=== PATIENT | female | born 2000 | race Caucasian/White ===

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

== ENCOUNTER 2022-06-21 19:11 | Emergency (ER) | payer MEDICAID ==
[2022-06-21 19:49] LABS: MUDS CUTOFF CONCENTRATIONS CUTOFF CONC BELOW:
[2022-06-21 19:54] LABS: BILIRUBIN,URINE NEGATIVE (NEGATIVE); GLUCOSE, URINE (UA) NEGATIVE (NEGATIVE); KETONES,URINE (UA) NEGATIVE (NEGATIVE); LEUKOCYTE ESTERASE, URINE TRACE (NEGATIVE); NITRITE,URINE POSITIVE (NEGATIVE); OCCULT BLOOD,URINE NEGATIVE (NEGATIVE); PROTEIN,URINE TRACE mg/dL (NEGATIVE); UROBILINOGEN,URINE 0.2 (NORMAL) E.U./dL (NORMAL)
[2022-06-21 19:56] LABS: CLARITY,URINE HAZY (CLEAR)
[2022-06-21 19:57] LABS: HCG UR QUAL NEGATIVE
[2022-06-21 20:05] LABS: AMORPHOUS SEDIMENT,UR Few /LPF; BACTERIA,URINE Moderate /HPF (None Seen); RBC,URINE 0-5 /HPF (0-5); SQUAMOUS EPITHELIAL CELL,UR FEW Squamous (<= Few); WBC,URINE >25 /HPF (0-5)
--- NOTE | 2022-06-21 20:06 | ED Physician Documentation ---
History of Present Illness - Stated complaint Stated Complaint: BODY SHAKES,SYNCOPE - Chief complaint Chief Complaint: General - Additonal information Additional information: 22-year-old female was brought to the emergency department by her mom for evaluation of worsening body shakes and tremor. Patient has been having intermittent tremors of both her upper extremities for about the last 3 months though it is gotten acutely worse over the last 24 to 48 hours. Patient is aware of these tremors. Today while being driven into the hospital mom reported that the patient fainted in the car. Patient denies any drug use with the exception of occasional cannabis. No alcohol use. She does not have any loss of bowel or bladder function. No focal deficits. Mom reports that she herself has a seizure disorder as well as the patient's older siblings. There have been no recent fevers. She takes no medicines prescribed by . There is a family history of diabetes though patient's blood sugar today is 102. On presentation the patient is alert though she does seem to have a tremor which she cannot control of both her upper extremities. Mom and patient report that she is very stubborn and has refused to follow-up with primary care doctors in the past though at this point the patient is bothered by the tremors enough that she will follow closely with a PCP Review of Systems Constitutional: denies: Fever, Chills Respiratory: reports: Reviewed and negative GI: reports: Reviewed and negative : reports: Reviewed and negative Skin: reports: Reviewed and negative Musculoskeletal: reports: Reviewed and negative Neurologic: reports: Other (Bilateral upper extremity tremor) PD PAST MEDICAL HISTORY - Past Medical History Cardiovascular: None Respiratory: Asthma Neuro: None Endocrine/Autoimmune: None GI: None 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 : None HEENT: Other Psych: Panic attacks Musculoskeletal: None Derm: Eczema - Past Surgical History Past Surgical History: No - Present Medications Home Medications: Ambulatory Orders Medication Instructions Recorded Confirmed Albuterol Sulf [Ventolin Hfa 1 - 2 puffs INH Q4HR PRN 12/03/20 02/28/21 Inhaler] Cefdinir 300 mg PO BID #14 cap 06/21/22 Ondansetron Odt [Zofran] 4 mg TL Q6H PRN #10 tablet 06/21/22 - Allergies Allergies/Adverse Reactions: Allergies Allergy/AdvReac Type Severity Reaction Status Date / Time No Known Drug Allergies Allergy Verified 06/21/22 19:28 - Social History Does the pt smoke?: No Smoking Status: Never smoker Does the pt drink ETOH?: No Does the pt have substance abuse?: No - Immunizations Immunizations are current?: Yes - POLST Patient has POLST: No PD ED PE NORMAL - General General: Alert and oriented X 3, No acute distress, Well developed/nourished - HEENT HEENT: Atraumatic, Ears normal, Moist mucous membranes - Neck Neck: Supple, no meningeal sign - Cardiac Cardiac: RRR, No murmur - Respiratory Respiratory: No respiratory distress, Clear bilaterally - Abdomen Abdomen: Normal bowel sounds, Soft - Derm Derm: Normal color, Warm and dry - Extremities Extremities: No deformity, No tenderness to palpate, Normal ROM s pain, Other (Persistent myoclonic jerking of bilateral upper extremities at rest) - Neuro Neuro: Alert and oriented X 3, hand tile maker 2-12 intact Eye Opening: Spontaneous Motor: Obeys Commands Verbal: Oriented GCS Score: 15 Results - Vitals Vitals: Vital Signs - 24 hr 06/21/22 19:22 Temperature 36.8 C Heart Rate 90 Respiratory 18 Rate Blood Pressure 127/100 H O2 Saturation 99 Oxygen O2 Source Room air - Labs Labs: Laboratory Tests 06/21/22 06/21/22 06/21/22 19:41 19:41 20:02 WBC 10.6 RBC 4.71 Hgb 12.9 Hct 39.3 MCV 83.4 MCH 27.4 MCHC 32.8 RDW 12.4 Plt Count 359 MPV 9.3 Neut # (Auto) 7.3 H Lymph # (Auto) 2.6 [place] # (Auto) 0.5 Eos # (Auto) 0.1 Baso # (Auto) 0.1 Absolute Nucleated RBC 0.00 Nucleated RBC % 0.0 Sodium Potassium Chloride Carbon Dioxide Anion Gap BUN Creatinine Estimated GFR (MDRD) Glucose Calcium Total Bilirubin AST ALT Alkaline Phosphatase Total Protein Albumin Globulin Albumin/Globulin Ratio Lipase TSH Urine Color YELLOW Urine Clarity HAZY Urine pH 7.0 Ur Specific [place] 1.015 Urine Protein TRACE Urine Glucose (UA) NEGATIVE Urine Ketones NEGATIVE Urine Occult Blood NEGATIVE Urine Nitrite POSITIVE H Urine Bilirubin NEGATIVE Urine Urobilinogen 0.2 (NORMAL) Ur Leukocyte Esterase TRACE H Urine RBC 0-5 Urine WBC >25 H Ur Squamous Epith Cells FEW Squamous Amorphous Sediment Few Urine Bacteria Moderate H Ur Microscopic Review INDICATED Urine Culture Comments INDICATED Urine HCG, Qual NEGATIVE Urine Opiates Screen NEGATIVE Ur Oxycodone Screen NEGATIVE Urine Methadone Screen NEGATIVE Ur Propoxyphene Screen NEGATIVE Ur Barbiturates Screen NEGATIVE Ur Tricyclics Screen NEGATIVE Ur Phencyclidine Scrn NEGATIVE Ur Amphetamine Screen NEGATIVE U Methamphetamines Scrn NEGATIVE U Benzodiazepines Scrn NEGATIVE Urine Cocaine Screen NEGATIVE U Cannabinoids Screen POSITIVE H 06/21/22 06/21/22 20:02 20:02 WBC RBC Hgb Hct MCV MCH MCHC RDW Plt Count MPV Neut # (Auto) Lymph # (Auto) [place] # (Auto) Eos # (Auto) Baso # (Auto) Absolute Nucleated RBC Nucleated RBC % Sodium 135 Potassium 3.5 Chloride 100 L Carbon Dioxide 26 Anion Gap 9.0 BUN 12 Creatinine 0.6 Estimated GFR (MDRD) 127 Glucose 120 H Calcium 9.3 Total Bilirubin 0.4 AST 15 ALT 13 Alkaline Phosphatase 76 Total Protein 7.6 Albumin 4.0 Globulin 3.6 Albumin/Globulin Ratio 1.1 Lipase 26 TSH 1.89 Urine Color Urine Clarity Urine pH Ur Specific [place] Urine Protein Urine Glucose (UA) Urine Ketones Urine Occult Blood Urine Nitrite Urine Bilirubin Urine Urobilinogen Ur Leukocyte Esterase Urine RBC Urine WBC Ur Squamous Epith Cells Amorphous Sediment Urine Bacteria Ur Microscopic Review Urine Culture Comments Urine HCG, Qual Urine Opiates Screen Ur Oxycodone Screen Urine Methadone Screen Ur Propoxyphene Screen Ur Barbiturates Screen Ur Tricyclics Screen Ur Phencyclidine Scrn Ur Amphetamine Screen U Methamphetamines Scrn U Benzodiazepines Scrn Urine Cocaine Screen U Cannabinoids Screen PD MEDICAL DECISION MAKING - ED course Complexity details: reviewed results, re-evaluated patient, d/w patient ED course: Well-appearing 22-year-old female presents to the emergency department with mom for evaluation of tremor in both her upper extremities that began about 3 months ago but has gotten progressively worse. The patient is unable to control the tremor when moving but was found at a time in the emergency department to be asleep and free of tremor. Initially when she woke up she did not have tremor but shortly after beginning to talk she began to have tremor in the upper extremities. I doubt seizure activity given that it is bilateral and nonfocal. She is awake and alert during this. This could be seizure-like activity however or pseudoseizure. We did obtain a CBC and electrolytes that showed no acute worrisome findings. Urine drug screen was positive for cannabis only which patient did endorse. Her urinalysis is consistent with acute cystitis. She did have some flank pain and therefore we will treat the UA though I do not think it is contributing to her upper extremity tremor. CT of the head today was negative. No findings suggest mass or lesion. Patient is advised to follow-up with Marsha Avery the [facility] assigned to see patients in ED follow-up. Given the symptoms as well as the duration she would at this point benefit from consideration for an outpatient MRI and/or referral to a neurologist. Departure - Departure Disposition: 01 Home, Self Care Clinical Impression: Tremor observed on examination Acute cystitis Qualifiers: Hematuria presence: without hematuria Qualified Code(s): N30.00 - Acute cystitis without hematuria Condition: Stable Record reviewed to determine appropriate education?: Yes Follow-Up: Marsha Avery PA-C [Provider Admit Priv/Credential] - Prescriptions: Cefdinir 300 mg PO BID #14 cap Ondansetron Odt [Zofran] 4 mg TL Q6H PRN #10 tablet PRN Reason: Nausea / Vomiting Comments: Elisa you are seen today in the emergency department because for the last few months you have had worsening tremors or shaking in your upper extremities. Here in the emergency department we did do a CBC and electrolytes that showed no worrisome findings. Your urine however does suggest infection. I sent a prescription for cefdinir to the [facility] pharmacy. Please fill this and begin taking twice daily for the next week. The cause of your shaking is not clear. The CT of your head was normal today. I do recommend you follow closely with Marsha Aevry in the [facility] assigned to see ED patients in follow-up over the next week. Please call the office and request ED follow-up. You may benefit from further evaluation with an MRI or referral to neurology.
[2022-06-21 20:08] LABS: BASOPHILS # (AUTO) 0.1 10^3/uL (0.0-0.1); BASOPHILS % (AUTO) 0.5 %; EOSINOPHILS # (AUTO) 0.1 10^3/uL (0.0-0.7); EOSINOPHILS % (AUTO) 0.9 %; HCT - HEMATOCRIT 39.3 % (37.0-47.0); HGB - HEMOGLOBIN 12.9 g/dL (12.0-16.0); LYMPHOCYTES # (AUTO) 2.6 10^3/uL (1.5-3.5); LYMPHOCYTES % (AUTO) 24.4 %; MEAN CORPUSCULAR HEMOGLOBIN 27.4 pg (27.0-31.0); MEAN CORPUSCULAR HGB CONC 32.8 g/dL (32.0-36.0); MEAN CORPUSCULAR VOLUME 83.4 fL (81.0-99.0); MEAN PLATELET VOLUME 9.3 fL (7.9-10.8); MONOCYTES # (AUTO) 0.5 10^3/uL (0.0-1.0); NEUTROPHILS # (AUTO) 7.3 10^3/uL (1.5-6.6); NEUTROPHILS % (AUTO) 68.9 %; PLT - PLATELET COUNT 359 10^3/uL (130-450); RED BLOOD COUNT 4.71 10^6/uL (4.20-5.40); RED CELL DISTRIBUTION WIDTH 12.4 % (12.0-15.0); WHITE BLOOD COUNT 10.6 x10^3/uL (4.8-10.8)
[2022-06-21 20:09] LABS: AMPHETAMINE SCREEN,URINE NEGATIVE (NEGATIVE); BARBITURATE SCREEN,UR NEGATIVE (NEGATIVE); BENZODIAZEPINES SCREEN, URINE NEGATIVE (NEGATIVE); COCAINE SCREEN URINE NEGATIVE (NEGATIVE); METHADONE SCREEN, URINE NEGATIVE (NEGATIVE); METHAMPHETAMINES SCREEN, URINE NEGATIVE (NEGATIVE); OPIATE SCREEN, URINE NEGATIVE (NEGATIVE); OXYCODONE SCREEN, URINE NEGATIVE (NEGATIVE); PROPOXYPHENE SCREEN, URINE NEGATIVE (NEGATIVE); THC CANNABINOID SCREEN, URINE POSITIVE (NEGATIVE); TRICYCLIC ANTIDEPRESSANT,URINE NEGATIVE (NEGATIVE)
[2022-06-21 20:30] LABS: ALBUMIN/GLOBULIN RATIO 1.1 (1.0-2.2); BILIRUBIN,TOTAL 0.4 mg/dL (0.2-1.0); CALCIUM 9.3 mg/dL (8.5-10.3); CREATININE 0.6 mg/dL (0.4-1.0); POTASSIUM 3.5 mmol/L (3.5-5.0); TOTAL PROTEIN 7.6 g/dL (6.7-8.2)
--- NOTE | 2022-06-21 20:32 | CT Report ---
PROCEDURE: HEAD WO INDICATIONS: myoclonic jerking BUE TECHNIQUE: Noncontrast 4.5 mm thick angled axial sections acquired from the foramen magnum to the vertex. For r adiation dose reduction, the following was used: automated exposure control, adjustment of mA and/or kV according to patient size. COMPARISON: None. FINDINGS: Image quality: Excellent. CSF spaces: Basal cisterns are patent. No extra-axial fluid collections. Ventricles are normal in size and shape. Brain: No intracranial hemorrhage, mass, or mass effect. Collier-white matter interface appears preser freddie. Skull and face: Calvarium and visualized facial bones are intact, without suspicious lesions. Sinuses: Visualized sinuses and mastoids are clear. IMPRESSION: 1. No acute intracranial abnormality. Reviewed by: Gennaro Montague MD on 06/21/2022 8:31 PM [facility] Approved by: Gennaro Montague MD on 06/21/2022 8:31 PM [facility] Station ID: [id number]
[2022-06-21] MEDS ORDERED: ONDANSETRON ODT 4 MG TABLET TL STA (20:41)
[2022-06-21 20:53] VITALS: BP 129/82
== END 2022-06-21 20:53 | disposition home or self-care (01) ==
LOC: ED 19:11
DX: R25.1 Tremor, unspecified (principal); N30.00 Acute cystitis without hematuria
CPT/HCPCS: 36415; 70450; 80053; 80306; 81001; 81025; 83690; 84443; 85025; 87086; 87181; 99284; Q0162; 81003

== ENCOUNTER 2022-08-26 21:54 | Emergency (ER) | payer MEDICAID ==
--- OUTSIDE RECORDS SUMMARY | 2022-08-26 22:03 | EXTERNAL MEDICAL SUMMARY RPT | Continuity of Care Document ---
:2000 Author Organization [place] Address [address] [place] [address] Phone Care Team Providers Name Role Phone Viry Leonard Unavailable Unavailable Allergies and Intolerances date description facility type (no date) No Known Drug Allergies [facility] ([facility]kn own) Encounters No information. Functional Status No information. Immunizations No information. Medications date description facility 2022-08-25 00:00 Cephalexin [facility] Problems date description facility 2022-08-25 00:00 Polycystic ovary syndrome [facility] 2022-08-25 00:00 Urinary tract infection [facility] Procedures date description facility 2022-08-25 00:00 Complete ultrasound of pelvis [facility] ospital Results/Labs test date author facility value unit interpret ation Result panel 1 (unknown) (no date[facility]) Result panel 2 (unknown) (no date) (unknown[facility]) Result panel 3 (unknown) (no date) (unknown[facility]) Result panel 4 (unknown) (no date) (unknown[facility]) Result panel 5 (unknown) (no date) (unknown[facility]) Result panel 6 (unknown) (no date) (unknown[facility]) Result panel 7 (unknown) (no date) (unknown[facility]) Result panel 8 (unknown) (no date) (unknown[facility]) Result panel 9 (unknown) (no date) (unknown[facility]) Result panel 10 (unknown) (no date) (unknown[facility]) Result panel 11 (unknown) (no date) (unknown[facility]) Result panel 12 (unknown) (no date) (unknown[facility]) Result panel 13 (unknown) (no date) (unknown[facility]) Result panel 14 (unknown) (no date) (unknown[facility]) Result panel 15 (unknown) (no date) (unknown[facility]) Result panel 16 (unknown) (no date) (unknown[facility]) Result panel 17 (unknown) (no date) (unknown[facility]) Result panel 18 (unknown) (no date) (unknown[facility]) Result panel 19 (unknown) (no date) (unknown[facility]) Result panel 20 (unknown) (no date) (unknown[facility]) Result panel 21 (unknown) (no date) (unknown[facility]) Result panel 22 (unknown) (no date) (unknown[facility]) Result panel 23 (unknown) (no date) (unknown[facility]) Result panel 24 (unknown) (no date) (unknown[facility]) Result panel 25 (unknown) (no date) (unknown[facility]) Result panel 26 (unknown) (no date) (unknown[facility]) Result panel 27 (unknown) (no date) (unknown[facility]) Result panel 28 (unknown) (no date) (unknown[facility]) Result panel 29 (unknown) (no date) (unknown[facility]) Result panel 30 (unknown) (no date) (unknown[facility]) Result panel 31 (unknown) (no date) (unknown[facility]) Result panel 32 (unknown) (no date) (unknown[facility]) Result panel 33 (unknown) (no date) (unknown[facility]) Result panel 34 (unknown) (no date) (unknown[facility]) Result panel 35 (unknown) (no date) (unknown[facility]) Result panel 36 (unknown) (no date) (unknown[facility]) Result panel 37 (unknown) (no date) (unknown[facility]) Result panel 38 (unknown) (no date) (unknown[facility]) Result panel 39 (unknown) (no date) (unknown[facility]) Result panel 40 (unknown) (no date) (unknown[facility]) Result panel 41 (unknown) (no date) (unknown[facility]) Result panel 42 (unknown) (no date) (unknown[facility]) Result panel 43 (unknown) (no date) (unknown[facility]) Result panel 44 (unknown) (no date) (unknown[facility]) Result panel 45 (unknown) (no date) (unknown[facility]) Result panel 46 (unknown) (no date) (unknown[facility]) Result panel 47 (unknown) (no date) (unknown[facility]) Result panel 48 (unknown) (no date) (unknown[facility]) Result panel 49 (unknown) (no date) (unknown[facility]) Result panel 50 (unknown) (no date) (unknown[facility]) Result panel 51 (unknown) (no date) (unknown[facility]) Result panel 52 (unknown) (no date) (unknown[facility]) Result panel 53 (unknown) (no date) (unknown) [facility]) Result panel 54 (unknown) (no date) (unknown[facility]) Result panel 55 (unknown) (no date) (unknown[facility]) Result panel 56 (unknown) (no date) (unknown[facility]) Result panel 57 (unknown) (no date) (unknown[facility]) Result panel 58 (unknown) (no date) (unknown[facility]) Result panel 59 (unknown) (no date) (unknown[facility]) Result panel 60 (unknown) (no date) (unknown[facility]) Result panel 61 (unknown) (no date) (unknown[facility]) Result panel 62 (unknown) (no date) (unknown) [facility]) Result panel 63 (unknown) (no date) (unknown) [facility]) Result panel 64 (unknown) (no date) (unknown) [facility]) Result panel 65 (unknown) (no date) (unknown) [facility]) Result panel 66 (unknown) (no date) (unknown) [facility]) Result panel 67 (unknown) (no date) (unknown) [facility]) Result panel 68 (unknown) (no date) (unknown) [facility]) Result panel 69 (unknown) (no date) (unknown) [facility]) Result panel 70 (unknown) (no date) (unknown) [facility]) Result panel 71 (unknown) (no date) (unknown) [facility]) Result panel 72 (unknown) (no date) (unknown) [facility]) Result panel 73 (unknown) (no date) (unknown) [facility]) Result panel 74 (unknown) (no date) (unknown) [facility]) Result panel 75 (unknown) (no date) (unknown) [facility]) Result panel 76 (unknown) (no date) (unknown) [facility]) Result panel 77 (unknown) (no date) (unknown) [facility]) Result panel 78 (unknown) (no date) (unknown) [facility]) Result panel 79 (unknown) (no date) (unknown) [facility]) Result panel 80 (unknown) (no date) (unknown) [facility]) Result panel 81 (unknown) (no date) (unknown) [facility]) Result panel 82 (unknown) (no date) (unknown) [facility]) Result panel 83 (unknown) (no date) (unknown) [facility]) Result panel 84 (unknown) (no date) (unknown) [facility]) Result panel 85 (unknown) (no date) (unknown) [facility]) Result panel 86 (unknown) (no date) (unknown[facility]) Result panel 87 (unknown) (no date) (unknown[facility]) Result panel 88 (unknown) (no date) (unknown[facility]) Result panel 89 (unknown) (no date) (unknown[facility]) Result panel 90 (unknown) (no date) (unknown) [facility]) Result panel 91 (unknown) (no date) (unknown) [facility]) Result panel 92 (unknown) (no date) (unknown) [facility]) Result panel 93 (unknown) (no date) (unknown) [facility]) Result panel 94 (unknown) (no date) (unknown) [facility]) Result panel 95 (unknown) (no date) (unknown) [facility]) Result panel 96 (unknown) (no date) (unknown) [facility]) Result panel 97 (unknown) (no date) (unknown) [facility]) Result panel 98 (unknown) (no date) (unknown) [facility]) Result panel 99 (unknown) (no date) (unknown) [facility]) Result panel 100 (unknown) (no (unknown) (unknown) (no value) (units (unk nown) date) unknown) (unknown) (no (unknown) (unknown) [id number] (units (unkno wn) date) unknown) (unknown) (no (unknown) (unknown) 08/25/22 (units (unkno wn) date) unknown) (unknown) (no (unknown) (unknown) 10.4 cc. The (units (u nknown) date) ovaries have a unknown) normal sonographic appearance. More than 12 (unknown) (no (unknown) (unknown) [address] [place] [address] (units (unknown) date) unknown) (unknown) (no (unknown) (unknown) Accession (units (unkn own) date) Number: unknown) [id number] (unknown) (no (unknown) (unknown) Additional (units (unk nown) date) endovaginal unknown) scanning was necessary due to incomplete visualization (unknown) (no (unknown) (unknown) Age/Sex: 22 / F (units (unknown) date) Date of Service: unknown) (unknown) (no (unknown) (unknown) AYO Steven (units ( unknown) date) [id number] unknown) (unknown) (no (unknown) (unknown) Approved by: (units (u nknown) date) meredith Black M.D. on 08/25/2022 at 10:55 (unknown) (no (unknown) (unknown) COMPARISON: (units (un known) date) [facility], unknown) US, US PELVIC COMPLETE, 08/16/2020, 8:45. (unknown) (no (unknown) (unknown) : 2000 (units (unknown) date) Acct:[id number] unknown) (unknown) (no (unknown) (unknown) Dictated by: (units (u nknown) date) meredith Black M.D. on 08/25/2022 at 10:54 (unknown) (no (unknown) (unknown) FINDINGS: (units (unkn own) date) unknown) (unknown) (no (unknown) (unknown) IMPRESSION: More (units (unknown) date) than 12 follicles unknown) can be seen involving each ovary, which is (unknown) (no (unknown) (unknown) INDICATIONS: (units (u nknown) date) DUB, PAIN X 3 unknown) MONTHS (unknown) (no (unknown) (unknown) [facility] (units (unknown) date) unknown) (unknown) (no (unknown) (unknown) Loc: ED (units (unkno wn) date) unknown) (unknown) (no (unknown) (unknown) Ordering (units (unkno wn) date) Provider: unknown) Pham Mandujano D.O. (unknown) (no (unknown) (unknown) Other: No (units (unkn own) date) pathologic free unknown) abdominal or pelvic fluid. (unknown) (no (unknown) (unknown) Ovaries: The (units (u nknown) date) right ovary unknown) measures 1.9 x 3.3 x 2.3 cm, with a calculated (unknown) (no (unknown) (unknown) PROCEDURE: US (units ( unknown) date) PELVIC COMPLETE unknown) (unknown) (no (unknown) (unknown) Patient: (units (unkno wn) date) Elisa Monterroso unknown) MR#: [id number] (unknown) (no (unknown) (unknown) Procedure: US (units ( unknown) date) pelvic complete unknown) (unknown) (no (unknown) (unknown) Real-time (units (unkn own) date) scanning was unknown) performed of the pelvic organs, with image (unknown) (no (unknown) (unknown) Signed (units (unkno wn) date) unknown) (unknown) (no (unknown) (unknown) TECHNIQUE: (units (unk nown) date) unknown) (unknown) (no (unknown) (unknown) To assist (units (unkn own) date) unknown) (unknown) (no (unknown) (unknown) Ultrasound (units (unk nown) date) Report unknown) (unknown) (no (unknown) (unknown) Uterus: Uterus (units (unknown) date) is anteverted and unknown) normal in size at 8 x 3.3 x 4.8 cm. The (unknown) (no (unknown) (unknown) We strive to (units (u nknown) date) produce accurate, unknown) complete, and clear reports of imaging services. (unknown) (no (unknown) (unknown) adnexal and (units (un known) date) endometrial unknown) structures by transabdominal scanning. (unknown) (no (unknown) (unknown) along the (units (unkn own) date) unknown) (unknown) (no (unknown) (unknown) and voice (units (unkn own) date) recognition unknown) software. Therefore, it may contain abnormal punctuation, (unknown) (no (unknown) (unknown) consistent (units (unk nown) date) unknown) (unknown) (no (unknown) (unknown) demonstrates a (units (unknown) date) heterogeneous unknown) appearance. No abnormal vascularity can be seen (unknown) (no (unknown) (unknown) documentation. (units (unknown) date) unknown) (unknown) (no (unknown) (unknown) endometrial (units (un known) date) stripe. unknown) (unknown) (no (unknown) (unknown) endometrium (units (un known) date) unknown) (unknown) (no (unknown) (unknown) follicles can be (units (unknown) date) unknown) (unknown) (no (unknown) (unknown) homogeneous. The (units (unknown) date) endometrium unknown) measures 7 mm combined thickness. The (unknown) (no (unknown) (unknown) inaccuracies. (units ( unknown) date) unknown) (unknown) (no (unknown) (unknown) insertions (units (unk nown) date) and/or omissions. unknown) Occasional wrong-word or sound-alike substitutions (unknown) (no (unknown) (unknown) may (units (unkno wn) date) unknown) (unknown) (no (unknown) (unknown) myometrium is (units ( unknown) date) unknown) (unknown) (no (unknown) (unknown) occur. Though we (units (unknown) date) review the report unknown) and make efforts to correct it, we do (unknown) (no (unknown) (unknown) of 7.4 cc. The (units (unknown) date) left ovary unknown) measures 3 x 2.6 x 2.5 cm, with a calculated ovarian (unknown) (no (unknown) (unknown) of the (units (unkno wn) date) unknown) (unknown) (no (unknown) (unknown) ovarian volume (units (unknown) date) unknown) (unknown) (no (unknown) (unknown) recommend that (units (unknown) date) unknown) (unknown) (no (unknown) (unknown) seen in each (units (u nknown) date) ovary. No adnexal unknown) masses are seen. (unknown) (no (unknown) (unknown) templates (units (unkn own) date) unknown) (unknown) (no (unknown) (unknown) the report be (units ( unknown) date) read carefully in unknown) proper context to recognize any text (unknown) (no (unknown) (unknown) us in improving (units (unknown) date) patient care, unknown) this report was composed using standard report (unknown) (no (unknown) (unknown) volume of (units (unkn own) date) unknown) (unknown) (no (unknown) (unknown) with polycystic (units (unknown) date) ovarian syndrome. unknown) Result panel 101 (unknown) (no date) (unknown) (unknown) 0 /ul (unkn own) (unknown) (no date) (unknown) (unknown) 0.3 % (unkn own) (unknown) (no date) (unknown) (unknown) 1.0 % (unkn own) (unknown) (no date) (unknown) (unknown) 100 /ul (unkn own) (unknown) (no date) (unknown) (unknown) 11.0 x10 3/ul (unkn own) (unknown) (no date) (unknown) (unknown) 11.1 % (unkn own) (unknown) (no date) (unknown) (unknown) 12.2 g/dl (unkn own) (unknown) (no date) (unknown) (unknown) 1200 /ul (unkn own) (unknown) (no date) (unknown) (unknown) 13.2 % (unkn own) (unknown) (no date) (unknown) (unknown) 28.5 pg (unkn own) (unknown) (no date) (unknown) (unknown) 33.8 % (unkn own) (unknown) (no date) (unknown) (unknown) 347 x10 3/ul (unkn own) (unknown) (no date) (unknown) (unknown) 36.2 % (unkn own) (unknown) (no date) (unknown) (unknown) 4.29 x10 6/ul (unkn own) (unknown) (no date) (unknown) (unknown) 5.7 % (unkn own) (unknown) (no date) (unknown) (unknown) 600 /ul (unkn own) (unknown) (no date) (unknown) (unknown) 81.9 % (unkn own) (unknown) (no date) (unknown) (unknown) 84.5 fl (unkn own) (unknown) (no date) (unknown) (unknown) 9000 /ul (unkn own) Result panel 102 (unknown) (no date) (unknown) (unknown) > 60 ml/min (unkn own) (unknown) (no date) (unknown) (unknown) > 60 ml/min (unkn own) (unknown) (no date) (unknown) (unknown) 0.62 mg/dl (unkn own) (unknown) (no date) (unknown) (unknown) 102 mmol/l (unkn own) (unknown) (no date) (unknown) (unknown) 11 mg/dl (unkn own) (unknown) (no date) (unknown) (unknown) 140 mmol/l (unkn own) (unknown) (no date) (unknown) (unknown) 17.7 (units unknown) (unknown) (unknown) (no date) (unknown) (unknown) 26 mmol/l (unkn own) (unknown) (no date) (unknown) (unknown) 4.2 mmol/l (unkn own) (unknown) (no date) (unknown) (unknown) 9.1 mg/dl (unkn own) (unknown) (no date) (unknown) (unknown) 97 mg/dl (unkn own) (unknown) (no date) (unknown) (unknown) 97 mg/dl (unkn own) Result panel 103 (unknown) (no date) (unknown) (unknown) NEGATIVE (units (unkn own) unknown) (unknown) (no date) (unknown) (unknown) O Negative (units (un known) unknown) (unknown) (no date) (unknown) (unknown) O Negative (units (un known) unknown) Result panel 104 (unknown) (no (unknown) (unknown) (no value) (units (unk nown) date) unknown) (unknown) (no (unknown) (unknown) 08/25/22 (units (unkno wn) date) 08/25/22 08/25/22 unknown) Range/Units (unknown) (no (unknown) (unknown) 08/25/22 10:13 (units (unknown) date) unknown) (unknown) (no (unknown) (unknown) 08/25/22 10:14 (units (unknown) date) unknown) (unknown) (no (unknown) (unknown) 08/25/22 (units (unkno wn) date) unknown) (unknown) (no (unknown) (unknown) [id number] (units (unkno wn) date) unknown) (unknown) (no (unknown) (unknown) 10.4 cc. The (units (u nknown) date) ovaries have a unknown) normal sonographic appearance.? More than 12 (unknown) (no (unknown) (unknown) 10:09 (units (unkno wn) date) unknown) (unknown) (no (unknown) (unknown) 10:13 10:13 (units (un known) date) 10:13 unknown) (unknown) (no (unknown) (unknown) [address] [place] [address] (units (unknown) date) unknown) (unknown) (no (unknown) (unknown) ? (units (unkno wn) date) unknown) (unknown) (no (unknown) (unknown) ?? (units (unkno wn) date) unknown) (unknown) (no (unknown) (unknown) Accession (units (unkn own) date) Number: unknown) [id number] ?? (unknown) (no (unknown) (unknown) Acct:[id number] (units (unknown) date) unknown) (unknown) (no (unknown) (unknown) Additional (units (unkn own) date) endovaginal unknown) scanning was necessary due to incomplete visualization of (unknown) (no (unknown) (unknown) Age/Sex: 22 / F (units (unknown) date) unknown) (unknown) (no (unknown) (unknown) Allergies (units (unkn own) date) unknown) (unknown) (no (unknown) (unknown) Allergy/AdvReac (units (unknown) date) Type Severity unknown) Reaction Status Date / Time (unknown) (no (unknown) (unknown) [place], [place] (units ( unknown) date) [id number] unknown) (unknown) (no (unknown) (unknown) Antibody Screen (units (unknown) date) Negative unknown) (unknown) (no (unknown) (unknown) Approved by: (units (u nknown) date) Michael De León, meredith Hamm on 08/25/2022 at 10:55 ? (unknown) (no (unknown) (unknown) BUN 11 (7-17) (units ( unknown) date) mg/dL unknown) (unknown) (no (unknown) (unknown) BUN/Creatinine (units (unknown) date) Ratio 17.7 (6-22) unknown) (unknown) (no (unknown) (unknown) Basic Metabolic (units (unknown) date) Panel Stat unknown) (unknown) (no (unknown) (unknown) Baso # (Auto) 0 (units (unknown) date) (0-100) /uL unknown) (unknown) (no (unknown) (unknown) Baso % (Auto) (units ( unknown) date) 0.3 (0-2) % unknown) (unknown) (no (unknown) (unknown) Blood Pressure (units (unknown) date) 128/78 08/25/22 unknown) 10:09 (unknown) (no (unknown) (unknown) Blood Pressure (units (unknown) date) unknown) (unknown) (no (unknown) (unknown) Blood Type O (units (u nknown) date) Negative unknown) (unknown) (no (unknown) (unknown) COMPARISON:? (units (u nknown) date) [facility], unknown) US, US PELVIC COMPLETE, 08/16/2020, 8:45. (unknown) (no (unknown) (unknown) Calcium 9.1 (units (un known) date) (8.4-10.2) mg/dL unknown) (unknown) (no (unknown) (unknown) Carbon Dioxide (units (unknown) date) 26 (22-32) mmol/L unknown) (unknown) (no (unknown) (unknown) Chief complaint: (units (unknown) date) Vaginal Bleeding unknown) (unknown) (no (unknown) (unknown) Chloride 102 (units (u nknown) date) (98-107) mmol/L unknown) (unknown) (no (unknown) (unknown) Complete Blood (units (unknown) date) Count AUTO DIFF unknown) Stat (unknown) (no (unknown) (unknown) Course (units (unkno wn) date) unknown) (unknown) (no (unknown) (unknown) Creatinine 0.62 (units (unknown) date) (0.52-1.04) mg/dL unknown) (unknown) (no (unknown) (unknown) : 2000 (units (unknown) date) Acct:[id number] unknown) (unknown) (no (unknown) (unknown) : 2000 (units (unknown) date) unknown) (unknown) (no (unknown) (unknown) Date of Service: (units (unknown) date) 08/25/22 unknown) (unknown) (no (unknown) (unknown) Departure (units (unkn own) date) unknown) (unknown) (no (unknown) (unknown) Dictated by: (units (u nknown) date) Michael De León, meredith Hamm on 08/25/2022 at 10:54 ? ? 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 (units (unk nown) date) unknown) (unknown) (no (unknown) (unknown) General (units (unkno wn) date) unknown) (unknown) (no (unknown) (unknown) Glucose 97 (units (unk nown) date) (70-100) mg/dL unknown) (unknown) (no (unknown) (unknown) HPI - Female (units (u nknown) date) Genitourinary unknown) (unknown) (no (unknown) (unknown) Hct 36.2 (36-46) (units (unknown) date) % unknown) (unknown) (no (unknown) (unknown) Hgb 12.2 (units (unkno wn) date) (12.0-16.0) g/dL unknown) (unknown) (no (unknown) (unknown) Home Medications (units (unknown) date) unknown) (unknown) (no (unknown) (unknown) IMPRESSION:? (units (u nknown) date) More than 12 unknown) follicles can be seen involving each ovary, which is (unknown) (no (unknown) (unknown) INDICATIONS:? (units ( unknown) date) DUB, PAIN X 3 unknown) MONTHS (unknown) (no (unknown) (unknown) Imaging Data (units (u nknown) date) unknown) (unknown) (no (unknown) (unknown) Initial Vital (units ( unknown) date) Signs unknown) (unknown) (no (unknown) (unknown) Initial Vital (units ( unknown) date) Signs: unknown) (unknown) (no (unknown) (unknown) Irregular (units (unkn own) date) menstrual cycle unknown) (unknown) (no (unknown) (unknown) [facility] (units (unknown) date) [address] unknown) [place] [address] (unknown) (no (unknown) (unknown) [facility] (units (unknown) date) unknown) (unknown) (no (unknown) (unknown) Lab Data (units (unkno wn) date) unknown) (unknown) (no (unknown) (unknown) Lab Results (units (un known) date) unknown) (unknown) (no (unknown) (unknown) Labs: (units (unkno wn) date) unknown) (unknown) (no (unknown) (unknown) Last Alcoholic (units (unknown) date) Drink: none unknown) (unknown) (no (unknown) (unknown) Loc: ED (units (unkno wn) date) unknown) (unknown) (no (unknown) (unknown) Lymph # (Auto) (units (unknown) date) 1200 ([id number]) unknown) /uL (unknown) (no (unknown) (unknown) Lymph % (Auto) (units (unknown) date) 11.1 L (25-40) % unknown) (unknown) (no (unknown) (unknown) MCH 28.5 (26-34) (units (unknown) date) PG unknown) (unknown) (no (unknown) (unknown) MCHC 33.8 (units (unkn own) date) (30-36) % unknown) (unknown) (no (unknown) (unknown) MCV 84.5 (units (unkno wn) date) (80-100) fL unknown) (unknown) (no (unknown) (unknown) MDM - Female (units (u nknown) date) Genitourinary unknown) (unknown) (no (unknown) (unknown) MR#: [id number] (units (unknown) date) unknown) (unknown) (no (unknown) (unknown) Medical History (units (unknown) date) (Reviewed unknown) 05/05/22 @ 19:20 by Calixto Alas DO) (unknown) (no (unknown) (unknown) Medication (units (unk nown) date) Instructions unknown) Recorded Confirmed (unknown) (no (unknown) (unknown) Miscellaneous, (units (unknown) date) MD mitul [Primary unknown) Care Provider] (unknown) (no (unknown) (unknown) Mode of arrival: (units (unknown) date) Ambulatory unknown) (unknown) (no (unknown) (unknown) [place] # (Auto) (units ( unknown) date) 600 (0-900) /uL unknown) (unknown) (no (unknown) (unknown) [place] % (Auto) (units ( unknown) date) 5.7 (3-14) % unknown) (unknown) (no (unknown) (unknown) Neut # (Auto) (units ( unknown) date) 9000 H unknown) (1193-6259) /uL (unknown) (no (unknown) (unknown) Neut % (Auto) (units ( unknown) date) 81.9 H (50-75) % unknown) (unknown) (no (unknown) (unknown) No Action (units (unkn own) date) unknown) (unknown) (no (unknown) (unknown) No Known Drug (units ( unknown) date) Allergies Allergy unknown) Verified 05/05/22 17:52 (unknown) (no (unknown) (unknown) No Known Home (units ( unknown) date) Medications unknown) 08/25/22 08/25/22 (unknown) (no (unknown) (unknown) No Known Home (units ( unknown) date) Medications unknown) (unknown) (no (unknown) (unknown) Ordered: (units (unkno wn) date) unknown) (unknown) (no (unknown) (unknown) Ordering (units (unkno wn) date) Provider: unknown) Pham Mandujano D.O. (unknown) (no (unknown) (unknown) Orders (units (unkno wn) date) unknown) (unknown) (no (unknown) (unknown) Other:? No (units (unk nown) date) pathologic free unknown) abdominal or pelvic fluid. (unknown) (no (unknown) (unknown) Ovaries:? The (units (u nknown) date) right ovary unknown) measures 1.9 x 3.3 x 2.3 cm, with a calculated ovarian (unknown) (no (unknown) (unknown) Oxygen Delivery (units (unknown) date) Method 08/25/22 unknown) 10:09 (unknown) (no (unknown) (unknown) Oxygen Delivery (units (unknown) date) Method Room Air unknown) (unknown) (no (unknown) (unknown) PROCEDURE:? US (units (unknown) date) PELVIC COMPLETE unknown) (unknown) (no (unknown) (unknown) Patient History (units (unknown) date) unknown) (unknown) (no (unknown) (unknown) Patient: (units (unkno wn) date) Elisa Monterroso unknown) MR#: [id number] (unknown) (no (unknown) (unknown) Patient: (units (unkno wn) date) Elisa Monterroso unknown) (unknown) (no (unknown) (unknown) Plt Count 347 (units ( unknown) date) (150-400) X103/uL unknown) (unknown) (no (unknown) (unknown) Potassium 4.2 (units ( unknown) date) (3.4-5.1) mmol/L unknown) (unknown) (no (unknown) (unknown) Prescriptions: (units (unknown) date) unknown) (unknown) (no (unknown) (unknown) Procedure: US (units ( unknown) date) pelvic complete unknown) (unknown) (no (unknown) (unknown) Pulse Oximetry (units (unknown) date) 99 08/25/22 10:09 unknown) (unknown) (no (unknown) (unknown) Pulse Oximetry (units (unknown) date) 99 unknown) (unknown) (no (unknown) (unknown) Pulse Rate 104 H (units (unknown) date) 08/25/22 10:09 unknown) (unknown) (no (unknown) (unknown) Pulse Rate 104 H (units (unknown) date) unknown) (unknown) (no (unknown) (unknown) RBC 4.29 (units (unkno wn) date) (4.0-5.2) X106/uL unknown) (unknown) (no (unknown) (unknown) RDW 13.2 (units (unkno wn) date) (11.6-14.8) % unknown) (unknown) (no (unknown) (unknown) Radiologist's (units ( unknown) date) Impression: unknown) (unknown) (no (unknown) (unknown) Real-time (units (unkn own) date) scanning was unknown) performed of the pelvic organs, with image (unknown) (no (unknown) (unknown) Referrals: (units (unk nown) date) unknown) (unknown) (no (unknown) (unknown) Related Data (units (u nknown) date) unknown) (unknown) (no (unknown) (unknown) Respiratory Rate (units (unknown) date) 18 08/25/22 10:09 unknown) (unknown) (no (unknown) (unknown) Respiratory Rate (units (unknown) date) 18 unknown) (unknown) (no (unknown) (unknown) Signed By: (units (unk nown) date) unknown) (unknown) (no (unknown) (unknown) Signed (units (unkno wn) date) unknown) (unknown) (no (unknown) (unknown) Sodium 140 (units (unk nown) date) (137-145) mmol/L unknown) (unknown) (no (unknown) (unknown) Source: patient (units (unknown) date) unknown) (unknown) (no (unknown) (unknown) Stated (units (unkno wn) date) complaint: unknown) shaking; bad period trouble (unknown) (no (unknown) (unknown) Substance Use (units ( unknown) date) Type: marijuana unknown) (unknown) (no (unknown) (unknown) TECHNIQUE:? (units (un known) date) unknown) (unknown) (no (unknown) (unknown) Temperature 97.8 (units (unknown) date) F 08/25/22 10:09 unknown) (unknown) (no (unknown) (unknown) Temperature 97.8 (units (unknown) date) F unknown) (unknown) (no (unknown) (unknown) Time Seen by (units (u nknown) date) Provider: unknown) 08/25/22 12:00 (unknown) (no (unknown) (unknown) To assist (units (unkn own) date) unknown) (unknown) (no (unknown) (unknown) Type and Screen (units (unknown) date) Stat unknown) (unknown) (no (unknown) (unknown) 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: (units (unkn own) date) unknown) (unknown) (no (unknown) (unknown) US pelvic (units (unkn own) date) complete Stat unknown) (unknown) (no (unknown) (unknown) Ultrasound (units (unk nown) date) Report unknown) (unknown) (no (unknown) (unknown) Uterus:? Uterus (units (unknown) date) is anteverted and unknown) normal in size at 8 x 3.3 x 4.8 cm. The (unknown) (no (unknown) (unknown) Vital Signs - 8 (units (unknown) date) hr unknown) (unknown) (no (unknown) (unknown) Vital Signs (units (un known) date) unknown) (unknown) (no (unknown) (unknown) Vital signs: (units (u nknown) date) unknown) (unknown) (no (unknown) (unknown) WBC 11.0 (units (unkno wn) date) (4.5-11.0) unknown) X103/uL (unknown) (no (unknown) (unknown) We strive to (units (u nknown) date) produce accurate, unknown) complete, and clear reports of imaging services. (unknown) (no (unknown) (unknown) [Embedded Image (units (unknown) date) Not Available] unknown) (unknown) (no (unknown) (unknown) adnexal and (units (un known) date) endometrial unknown) structures by transabdominal scanning.? (unknown) (no (unknown) (unknown) alcohol intake (units (unknown) date) frequency: other unknown) (unknown) (no (unknown) (unknown) along the (units (unkn own) date) unknown) (unknown) (no (unknown) (unknown) and voice (units (unkn own) date) recognition unknown) software. Therefore, it may contain abnormal punctuation, (unknown) (no (unknown) (unknown) consistent (units (unk nown) date) unknown) (unknown) (no (unknown) (unknown) demonstrates a (units (unknown) date) heterogeneous unknown) appearance.? No abnormal vascularity can be seen (unknown) (no (unknown) (unknown) documentation.? (units (unknown) date) unknown) (unknown) (no (unknown) (unknown) endometrial (units (un known) date) stripe. unknown) (unknown) (no (unknown) (unknown) endometrium (units (un known) date) unknown) (unknown) (no (unknown) (unknown) follicles can be (units (unknown) date) unknown) (unknown) (no (unknown) (unknown) homogeneous. ? (units (unknown) date) The endometrium unknown) measures 7 mm combined thickness.? The (unknown) (no (unknown) (unknown) inaccuracies. (units ( unknown) date) unknown) (unknown) (no (unknown) (unknown) insertions (units (unk nown) date) and/or omissions. unknown) Occasional wrong-word or sound-alike substitutions (unknown) (no (unknown) (unknown) may (units (unkno wn) date) unknown) (unknown) (no (unknown) (unknown) myometrium is (units ( unknown) date) unknown) (unknown) (no (unknown) (unknown) occur. Though we (units (unknown) date) review the report unknown) and make efforts to correct it, we do (unknown) (no (unknown) (unknown) of 7.4 cc. The (units (unknown) date) left ovary unknown) measures 3 x 2.6 x 2.5 cm, with a calculated ovarian (unknown) (no (unknown) (unknown) recommend that (units (unknown) date) unknown) (unknown) (no (unknown) (unknown) seen in each (units (u nknown) date) ovary.? No unknown) adnexal masses are seen. (unknown) (no (unknown) (unknown) templates (units (unkn own) date) unknown) (unknown) (no (unknown) (unknown) the report be (units ( unknown) date) read carefully in unknown) proper context to recognize any text (unknown) (no (unknown) (unknown) the (units (unkno wn) date) unknown) (unknown) (no (unknown) (unknown) tobacco type: (units ( unknown) date) vaping unknown) (unknown) (no (unknown) (unknown) us in improving (units (unknown) date) patient care, unknown) this report was composed using standard report (unknown) (no (unknown) (unknown) volume of (units (unkn own) date) unknown) (unknown) (no (unknown) (unknown) volume (units (unkno wn) date) unknown) (unknown) (no (unknown) (unknown) 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 Result panel 105 (unknown) (no (unknown) (unknown) (no value) (units (unk nown) date) unknown) (unknown) (no (unknown) (unknown) 08/25/22 (units (unkno wn) date) 08/25/22 08/25/22 unknown) Range/Units (unknown) (no (unknown) (unknown) 08/25/22 10:13 (units (unknown) date) unknown) (unknown) (no (unknown) (unknown) 08/25/22 10:14 (units (unknown) date) unknown) (unknown) (no (unknown) (unknown) 08/25/22 (units (unkno wn) date) unknown) (unknown) (no (unknown) (unknown) [id number] (units (unkno wn) date) unknown) (unknown) (no (unknown) (unknown) 10.4 cc. The (units (u nknown) date) ovaries have a unknown) normal sonographic appearance.? More than 12 (unknown) (no (unknown) (unknown) 10:09 08/25/22 (units (unknown) date) unknown) (unknown) (no (unknown) (unknown) 10:13 10:13 (units (un known) date) 10:13 unknown) (unknown) (no (unknown) (unknown) [address] [place] [address] (units (unknown) date) unknown) (unknown) (no (unknown) (unknown) 12:41 (units (unkno wn) date) unknown) (unknown) (no (unknown) (unknown) ? (units (unkno wn) date) unknown) (unknown) (no (unknown) (unknown) ?? (units (unkno wn) date) unknown) (unknown) (no (unknown) (unknown) Accession (units (unkn own) date) Number: unknown) [id number] ?? (unknown) (no (unknown) (unknown) Acct:[id number] (units (unknown) date) unknown) (unknown) (no (unknown) (unknown) Additional (units (unkn own) date) endovaginal unknown) scanning was necessary due to incomplete visualization of (unknown) (no (unknown) (unknown) Age/Sex: 22 / F (units (unknown) date) unknown) (unknown) (no (unknown) (unknown) Allergies (units (unkn own) date) unknown) (unknown) (no (unknown) (unknown) Allergy/AdvReac (units (unknown) date) Type Severity unknown) Reaction Status Date / Time (unknown) (no (unknown) (unknown) [place], [place] (units ( unknown) date) [id number] unknown) (unknown) (no (unknown) (unknown) Antibody Screen (units (unknown) date) Negative unknown) (unknown) (no (unknown) (unknown) Approved by: (units (u nknown) date) meredith Black M.D. on 08/25/2022 at 10:55 ? (unknown) (no (unknown) (unknown) BUN 11 (7-17) (units ( unknown) date) mg/dL unknown) (unknown) (no (unknown) (unknown) BUN/Creatinine (units (unknown) date) Ratio 17.7 (6-22) unknown) (unknown) (no (unknown) (unknown) Basic Metabolic (units (unknown) date) Panel Stat unknown) (unknown) (no (unknown) (unknown) Baso # (Auto) 0 (units (unknown) date) (0-100) /uL unknown) (unknown) (no (unknown) (unknown) Baso % (Auto) (units ( unknown) date) 0.3 (0-2) % unknown) (unknown) (no (unknown) (unknown) Bedside Urine (units ( unknown) date) Bilirubin - unknown) Negative (unknown) (no (unknown) (unknown) Bedside Urine (units ( unknown) date) Glucose Negative unknown) (unknown) (no (unknown) (unknown) Bedside Urine (units ( unknown) date) Ketone - Negative unknown) (unknown) (no (unknown) (unknown) Bedside Urine (units ( unknown) date) Leukocytes ++ 125 unknown) (unknown) (no (unknown) (unknown) Bedside Urine (units ( unknown) date) Nitrite + unknown) Positive (unknown) (no (unknown) (unknown) Bedside Urine (units ( unknown) date) Occult Blood unknown) (unknown) (no (unknown) (unknown) Bedside Urine (units ( unknown) date) Protein ++ 100 unknown) (unknown) (no (unknown) (unknown) Bedside Urine (units ( unknown) date) Urobilinogen - unknown) Negative (unknown) (no (unknown) (unknown) Bedside Urine pH (units (unknown) date) 6.0 unknown) (unknown) (no (unknown) (unknown) Blood Pressure (units (unknown) date) 128/78 08/25/22 unknown) 10:09 (unknown) (no (unknown) (unknown) Blood Pressure (units (unknown) date) 128/78 131/60 unknown) (unknown) (no (unknown) (unknown) Blood Type O (units (u nknown) date) Negative unknown) (unknown) (no (unknown) (unknown) COMPARISON:? (units (u nknown) date) [facility], unknown) US, US PELVIC COMPLETE, 08/16/2020, 8:45. (unknown) (no (unknown) (unknown) Calcium 9.1 (units (un known) date) (8.4-10.2) mg/dL unknown) (unknown) (no (unknown) (unknown) Carbon Dioxide (units (unknown) date) 26 (22-32) mmol/L unknown) (unknown) (no (unknown) (unknown) Chief complaint: (units (unknown) date) Vaginal Bleeding unknown) (unknown) (no (unknown) (unknown) Chloride 102 (units (u nknown) date) (98-107) mmol/L unknown) (unknown) (no (unknown) (unknown) Complete Blood (units (unknown) date) Count AUTO DIFF unknown) Stat (unknown) (no (unknown) (unknown) Course (units (unkno wn) date) unknown) (unknown) (no (unknown) (unknown) Creatinine 0.62 (units (unknown) date) (0.52-1.04) mg/dL unknown) (unknown) (no (unknown) (unknown) : 2000 (units (unknown) date) Acct:[id number] unknown) (unknown) (no (unknown) (unknown) : 2000 (units (unknown) date) unknown) (unknown) (no (unknown) (unknown) Date of Service: (units (unknown) date) 08/25/22 unknown) (unknown) (no (unknown) (unknown) Departure (units (unkn own) date) unknown) (unknown) (no (unknown) (unknown) Dictated by: (units (u nknown) date) meredith Black M.D. on 08/25/2022 at 10:54 ? ? 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 (units (unk nown) date) unknown) (unknown) (no (unknown) (unknown) General (units (unkno wn) date) unknown) (unknown) (no (unknown) (unknown) Glucose 97 (units (unk nown) date) (70-100) mg/dL unknown) (unknown) (no (unknown) (unknown) HPI - Female (units (u nknown) date) Genitourinary unknown) (unknown) (no (unknown) (unknown) Hct 36.2 (36-46) (units (unknown) date) % unknown) (unknown) (no (unknown) (unknown) Hgb 12.2 (units (unkno wn) date) (12.0-16.0) g/dL unknown) (unknown) (no (unknown) (unknown) Home Medications (units (unknown) date) unknown) (unknown) (no (unknown) (unknown) IMPRESSION:? (units (u nknown) date) More than 12 unknown) follicles can be seen involving each ovary, which is (unknown) (no (unknown) (unknown) INDICATIONS:? (units ( unknown) date) DUB, PAIN X 3 unknown) MONTHS (unknown) (no (unknown) (unknown) Imaging Data (units (u nknown) date) unknown) (unknown) (no (unknown) (unknown) Initial Vital (units ( unknown) date) Signs unknown) (unknown) (no (unknown) (unknown) Initial Vital (units ( unknown) date) Signs: unknown) (unknown) (no (unknown) (unknown) Irregular (units (unkn own) date) menstrual cycle unknown) (unknown) (no (unknown) (unknown) [facility] (units (unknown) date) [address] unknown) [place] [address] (unknown) (no (unknown) (unknown) [facility] (units (unknown) date) unknown) (unknown) (no (unknown) (unknown) Ketorolac (units (unkn own) date) Tromethamine unknown) (Ketorolac 30 Mg/Ml Vial) 30 mg IV NOW ONE (unknown) (no (unknown) (unknown) Lab Data (units (unkno wn) date) unknown) (unknown) (no (unknown) (unknown) Lab Results (units (un known) date) unknown) (unknown) (no (unknown) (unknown) Labs: (units (unkno wn) date) unknown) (unknown) (no (unknown) (unknown) Last Alcoholic (units (unknown) date) Drink: none unknown) (unknown) (no (unknown) (unknown) Loc: ED (units (unkno wn) date) unknown) (unknown) (no (unknown) (unknown) Lymph # (Auto) (units (unknown) date) 1200 (0684-6916) unknown) /uL (unknown) (no (unknown) (unknown) Lymph % (Auto) (units (unknown) date) 11.1 L (25-40) % unknown) (unknown) (no (unknown) (unknown) MCH 28.5 (26-34) (units (unknown) date) PG unknown) (unknown) (no (unknown) (unknown) MCHC 33.8 (units (unkn own) date) (30-36) % unknown) (unknown) (no (unknown) (unknown) MCV 84.5 (units (unkno wn) date) (80-100) fL unknown) (unknown) (no (unknown) (unknown) MDM - Female (units (u nknown) date) Genitourinary unknown) (unknown) (no (unknown) (unknown) MR#: [id number] (units (unknown) date) unknown) (unknown) (no (unknown) (unknown) Medical History (units (unknown) date) (Reviewed unknown) 05/05/22 @ 19:20 by Calixto Alas DO) (unknown) (no (unknown) (unknown) Medication (units (unk nown) date) Instructions unknown) Recorded Confirmed (unknown) (no (unknown) (unknown) Miscellaneous,Do (units (unknown) date) MD mitul [Primary unknown) Care Provider] (unknown) (no (unknown) (unknown) Mode of arrival: (units (unknown) date) Ambulatory unknown) (unknown) (no (unknown) (unknown) [place] # (Auto) (units ( unknown) date) 600 (0-900) /uL unknown) (unknown) (no (unknown) (unknown) [place] % (Auto) (units ( unknown) date) 5.7 (3-14) % unknown) (unknown) (no (unknown) (unknown) Neut # (Auto) (units ( unknown) date) 9000 H unknown) ([id number]) /uL (unknown) (no (unknown) (unknown) Neut % (Auto) (units ( unknown) date) 81.9 H (50-75) % unknown) (unknown) (no (unknown) (unknown) No Action (units (unkn own) date) unknown) (unknown) (no (unknown) (unknown) No Known Drug (units ( unknown) date) Allergies Allergy unknown) Verified 05/05/22 17:52 (unknown) (no (unknown) (unknown) No Known Home (units ( unknown) date) Medications unknown) 08/25/22 08/25/22 (unknown) (no (unknown) (unknown) No Known Home (units ( unknown) date) Medications unknown) (unknown) (no (unknown) (unknown) Ordered: (units (unkno wn) date) unknown) (unknown) (no (unknown) (unknown) Ordering (units (unkno wn) date) Provider: unknown) Pham Mandujano D.O. (unknown) (no (unknown) (unknown) Orders (units (unkno wn) date) unknown) (unknown) (no (unknown) (unknown) Other:? No (units (unk nown) date) pathologic free unknown) abdominal or pelvic fluid. (unknown) (no (unknown) (unknown) Ovaries:? The (units (u nknown) date) right ovary unknown) measures 1.9 x 3.3 x 2.3 cm, with a calculated ovarian (unknown) (no (unknown) (unknown) Oxygen Delivery (units (unknown) date) Method 08/25/22 unknown) 10:09 (unknown) (no (unknown) (unknown) Oxygen Delivery (units (unknown) date) Method Room Air unknown) Room Air (unknown) (no (unknown) (unknown) PROCEDURE:? US (units (unknown) date) PELVIC COMPLETE unknown) (unknown) (no (unknown) (unknown) Patient History (units (unknown) date) unknown) (unknown) (no (unknown) (unknown) Patient: (units (unkno wn) date) Elisa Monterroso unknown) MR#: [id number] (unknown) (no (unknown) (unknown) Patient: (units (unkno wn) date) Elisa Monterroso unknown) (unknown) (no (unknown) (unknown) Plt Count 347 (units ( unknown) date) (150-400) X103/uL unknown) (unknown) (no (unknown) (unknown) Potassium 4.2 (units ( unknown) date) (3.4-5.1) mmol/L unknown) (unknown) (no (unknown) (unknown) Prescriptions: (units (unknown) date) unknown) (unknown) (no (unknown) (unknown) Procedure: US (units ( unknown) date) pelvic complete unknown) (unknown) (no (unknown) (unknown) Pulse Oximetry (units (unknown) date) 99 08/25/22 10:09 unknown) (unknown) (no (unknown) (unknown) Pulse Oximetry (units (unknown) date) 99 100 unknown) (unknown) (no (unknown) (unknown) Pulse Rate 104 H (units (unknown) date) 08/25/22 10:09 unknown) (unknown) (no (unknown) (unknown) Pulse Rate 104 H (units (unknown) date) 100 H unknown) (unknown) (no (unknown) (unknown) RBC 4.29 (units (unkno wn) date) (4.0-5.2) X106/uL unknown) (unknown) (no (unknown) (unknown) RDW 13.2 (units (unkno wn) date) (11.6-14.8) % unknown) (unknown) (no (unknown) (unknown) Radiologist's (units ( unknown) date) Impression: unknown) (unknown) (no (unknown) (unknown) Real-time (units (unkn own) date) scanning was unknown) performed of the pelvic organs, with image (unknown) (no (unknown) (unknown) Referrals: (units (unk nown) date) unknown) (unknown) (no (unknown) (unknown) Related Data (units (u nknown) date) unknown) (unknown) (no (unknown) (unknown) Respiratory Rate (units (unknown) date) 18 08/25/22 10:09 unknown) (unknown) (no (unknown) (unknown) Respiratory Rate (units (unknown) date) 18 16 unknown) (unknown) (no (unknown) (unknown) Signed By: (units (unk nown) date) unknown) (unknown) (no (unknown) (unknown) Signed (units (unkno wn) date) unknown) (unknown) (no (unknown) (unknown) Sodium 140 (units (unk nown) date) (137-145) mmol/L unknown) (unknown) (no (unknown) (unknown) Source: patient (units (unknown) date) unknown) (unknown) (no (unknown) (unknown) Stated (units (unkno wn) date) complaint: unknown) shaking; bad period trouble (unknown) (no (unknown) (unknown) Stop: 08/25/22 (units (unknown) date) 12:47 unknown) (unknown) (no (unknown) (unknown) Substance Use (units ( unknown) date) Type: marijuana unknown) (unknown) (no (unknown) (unknown) TECHNIQUE:? 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 Uterus (units (unknown) date) is anteverted and unknown) normal in size at 8 x 3.3 x 4.8 cm. The (unknown) (no (unknown) (unknown) Vital Signs - 8 (units (unknown) date) hr unknown) (unknown) (no (unknown) (unknown) Vital Signs (units (un known) date) unknown) (unknown) (no (unknown) (unknown) Vital signs: (units (u nknown) date) unknown) (unknown) (no (unknown) (unknown) WBC 11.0 (units (unkno wn) date) (4.5-11.0) unknown) X103/uL (unknown) (no (unknown) (unknown) We strive to (units (u nknown) date) produce accurate, unknown) complete, and clear reports of imaging services. (unknown) (no (unknown) (unknown) [Embedded Image (units (unknown) date) Not Available] unknown) (unknown) (no (unknown) (unknown) adnexal and (units (un known) date) endometrial unknown) structures by transabdominal scanning.? (unknown) (no (unknown) (unknown) alcohol intake (units (unknown) date) frequency: other unknown) (unknown) (no (unknown) (unknown) along the (units (unkn own) date) unknown) (unknown) (no (unknown) (unknown) and voice (units (unkn own) date) recognition unknown) software. Therefore, it may contain abnormal punctuation, (unknown) (no (unknown) (unknown) consistent (units (unk nown) date) unknown) (unknown) (no (unknown) (unknown) demonstrates a (units (unknown) date) heterogeneous unknown) appearance.? No abnormal vascularity can be seen (unknown) (no (unknown) (unknown) documentation.? (units (unknown) date) unknown) (unknown) (no (unknown) (unknown) endometrial (units (un known) date) stripe. unknown) (unknown) (no (unknown) (unknown) endometrium (units (un known) date) unknown) (unknown) (no (unknown) (unknown) follicles can be (units (unknown) date) unknown) (unknown) (no (unknown) (unknown) homogeneous. ? (units (unknown) date) The endometrium unknown) measures 7 mm combined thickness.? The (unknown) (no (unknown) (unknown) inaccuracies. (units ( unknown) date) unknown) (unknown) (no (unknown) (unknown) insertions (units (unk nown) date) and/or omissions. unknown) Occasional wrong-word or sound-alike substitutions (unknown) (no (unknown) (unknown) may (units (unkno wn) date) unknown) (unknown) (no (unknown) (unknown) myometrium is (units ( unknown) date) unknown) (unknown) (no (unknown) (unknown) occur. Though we (units (unknown) date) review the report unknown) and make efforts to correct it, we do (unknown) (no (unknown) (unknown) of 7.4 cc. The (units (unknown) date) left ovary unknown) measures 3 x 2.6 x 2.5 cm, with a calculated ovarian (unknown) (no (unknown) (unknown) recommend that (units (unknown) date) unknown) (unknown) (no (unknown) (unknown) seen in each (units (u nknown) date) ovary.? No unknown) adnexal masses are seen. (unknown) (no (unknown) (unknown) templates (units (unkn own) date) unknown) (unknown) (no (unknown) (unknown) the report be (units ( unknown) date) read carefully in unknown) proper context to recognize any text (unknown) (no (unknown) (unknown) the (units (unkno wn) date) unknown) (unknown) (no (unknown) (unknown) tobacco type: (units ( unknown) date) vaping unknown) (unknown) (no (unknown) (unknown) us in improving (units (unknown) date) patient care, unknown) this report was composed using standard report (unknown) (no (unknown) (unknown) volume of (units (unkn own) date) unknown) (unknown) (no (unknown) (unknown) volume (units (unkno wn) date) unknown) (unknown) (no (unknown) (unknown) 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 Result panel 106 (unknown) (no date) (unknown) (unknown) 0-1 /HPF (units (unkn own) unknown) (unknown) (no date) (unknown) (unknown) 1 (units (unkn own) unknown) (unknown) (no date) (unknown) (unknown) 30-100/HPF (units (un known) unknown) (unknown) (no date) (unknown) (unknown) 5-10/HPF (units (unkn own) unknown) (unknown) (no date) (unknown) (unknown) 5-10/HPF (units (unkn own) unknown) (unknown) (no date) (unknown) (unknown) Many (>30) (units (un known) unknown) (unknown) (no date) (unknown) (unknown) Specimen (units (unkn own) Cultured unknown) Result panel 107 (unknown) (no (unknown) (unknown) (no value) (units (unk nown) date) unknown) (unknown) (no (unknown) (unknown) *If you do not (units (unknown) date) have a primary unknown) care provider please contact the [facility] (unknown) (no (unknown) (unknown) *Please continue (units (unknown) date) to take your unknown) regular medications as directed. (unknown) (no (unknown) (unknown) *Please follow up (units (unknown) date) with your primary unknown) care provider in 2-3 days, call for an (unknown) (no (unknown) (unknown) *What to do: (units (u nknown) date) unknown) (unknown) (no (unknown) (unknown) *You have been (units (unknown) date) diagnosed with unknown) PCOS and a UTI. We have given you a injection of (unknown) (no (unknown) (unknown) 08/25/22 08/25/22 (units (unknown) date) 08/25/22 unknown) Range/Units (unknown) (no (unknown) (unknown) 08/25/22 10:13 (units (unknown) date) unknown) (unknown) (no (unknown) (unknown) 08/25/22 10:14 (units (unknown) date) unknown) (unknown) (no (unknown) (unknown) 08/25/22 12:52 (units (unknown) date) unknown) (unknown) (no (unknown) (unknown) 08/25/22 (units (unkno wn) date) unknown) (unknown) (no (unknown) (unknown) [id number] (units (unkno wn) date) unknown) (unknown) (no (unknown) (unknown) 1,000 mg PO BID 7 (units (unknown) date) Days Qty: 28 0RF unknown) (unknown) (no (unknown) (unknown) 10.4 cc. The (units (u nknown) date) ovaries have a unknown) normal sonographic appearance.? More than 12 (unknown) (no (unknown) (unknown) 10:09 08/25/22 (units (unknown) date) unknown) (unknown) (no (unknown) (unknown) 10:13 10:13 10:13 (units (unknown) date) unknown) (unknown) (no (unknown) (unknown) [address] [place] [address] (units (unknown) date) unknown) (unknown) (no (unknown) (unknown) 12:41 (units (unkno wn) date) unknown) (unknown) (no (unknown) (unknown) 22-year-old (units (un known) date) female, daily unknown) smoker, presents to the emergency department with (unknown) (no (unknown) (unknown) ? Return to ER if (units (unknown) date) you should have unknown) any new, worsening or concerning symptoms, (unknown) (no (unknown) (unknown) ? (units (unkno wn) date) unknown) (unknown) (no (unknown) (unknown) ?? (units (unkno wn) date) unknown) (unknown) (no (unknown) (unknown) Accession Number: (units (unknown) date) [id number] ?? unknown) (unknown) (no (unknown) (unknown) Acct:[id number] (units (unknown) date) unknown) (unknown) (no (unknown) (unknown) Activity (units (unkno wn) date) Restrictions/Addit unknown) ional Instructions: (unknown) (no (unknown) (unknown) Additional (units (unkn own) date) endovaginal unknown) scanning was necessary due to incomplete visualization of (unknown) (no (unknown) (unknown) Age/Sex: 22 / F (units (unknown) date) unknown) (unknown) (no (unknown) (unknown) Allergies (units (unkn own) date) unknown) (unknown) (no (unknown) (unknown) Allergy/AdvReac (units (unknown) date) Type Severity unknown) Reaction Status Date / Time (unknown) (no (unknown) (unknown) AYO Steven (units ( unknown) date) [id number] unknown) (unknown) (no (unknown) (unknown) Antibody Screen (units (unknown) date) Negative unknown) (unknown) (no (unknown) (unknown) Approved by: (units (u nknown) date) Michael De León, meredith Hamm on 08/25/2022 at 10:55 ? (unknown) (no (unknown) (unknown) BUN 11 (7-17) (units ( unknown) date) mg/dL unknown) (unknown) (no (unknown) (unknown) BUN/Creatinine (units (unknown) date) Ratio 17.7 (6-22) unknown) (unknown) (no (unknown) (unknown) Basic Metabolic (units (unknown) date) Panel Stat unknown) (unknown) (no (unknown) (unknown) Baso # (Auto) 0 (units (unknown) date) (0-100) /uL unknown) (unknown) (no (unknown) (unknown) Baso % (Auto) 0.3 (units (unknown) date) (0-2) % unknown) (unknown) (no (unknown) (unknown) Bedside Urine (units ( unknown) date) Bilirubin - unknown) Negative (unknown) (no (unknown) (unknown) Bedside Urine (units ( unknown) date) Glucose Negative unknown) (unknown) (no (unknown) (unknown) Bedside Urine (units ( unknown) date) Ketone - Negative unknown) (unknown) (no (unknown) (unknown) Bedside Urine (units ( unknown) date) Leukocytes ++ 125 unknown) (unknown) (no (unknown) (unknown) Bedside Urine (units ( unknown) date) Nitrite + Positive unknown) (unknown) (no (unknown) (unknown) Bedside Urine (units ( unknown) date) Occult Blood unknown) (unknown) (no (unknown) (unknown) Bedside Urine (units ( unknown) date) Protein ++ 100 unknown) (unknown) (no (unknown) (unknown) Bedside Urine (units ( unknown) date) Urobilinogen - unknown) Negative (unknown) (no (unknown) (unknown) Bedside Urine pH (units (unknown) date) 6.0 unknown) (unknown) (no (unknown) (unknown) Blood Pressure (units (unknown) date) 128/78 08/25/22 unknown) 10:09 (unknown) (no (unknown) (unknown) Blood Pressure (units (unknown) date) 128/78 131/60 unknown) (unknown) (no (unknown) (unknown) Blood Type O (units (u nknown) date) Negative unknown) (unknown) (no (unknown) (unknown) CARDIOVASCULAR: (units (unknown) date) Denies chest pain, unknown) palpitations, edema. (unknown) (no (unknown) (unknown) CARDIOVASCULAR: (units (unknown) date) Regular rate and unknown) rhythm without murmurs, peripheral pulses (unknown) (no (unknown) (unknown) COMPARISON:? (units (u nknown) date) [facility], unknown) US, US PELVIC COMPLETE, 08/16/2020, 8:45. (unknown) (no (unknown) (unknown) Calcium 9.1 (units (un known) date) (8.4-10.2) mg/dL unknown) (unknown) (no (unknown) (unknown) Carbon Dioxide 26 (units (unknown) date) (22-32) mmol/L unknown) (unknown) (no (unknown) (unknown) Chief complaint: (units (unknown) date) Vaginal Bleeding unknown) (unknown) (no (unknown) (unknown) Chloride 102 (units (u nknown) date) (98-107) mmol/L unknown) (unknown) (no (unknown) (unknown) Clinical (units (unkno wn) date) Impression: unknown) (unknown) (no (unknown) (unknown) Complete Blood (units (unknown) date) Count AUTO DIFF unknown) Stat (unknown) (no (unknown) (unknown) Course (units (unkno wn) date) unknown) (unknown) (no (unknown) (unknown) Creatinine 0.62 (units (unknown) date) (0.52-1.04) mg/dL unknown) (unknown) (no (unknown) (unknown) : 2000 (units (unknown) date) Acct:[id number] unknown) (unknown) (no (unknown) (unknown) : 2000 (units (unknown) date) unknown) (unknown) (no (unknown) (unknown) Date of Service: (units (unknown) date) 08/25/22 unknown) (unknown) (no (unknown) (unknown) Departure (units (unkn own) date) unknown) (unknown) (no (unknown) (unknown) Dictated by: (units (u nknown) date) meredith Black M.D. on 08/25/2022 at 10:54 ? ? (unknown) (no (unknown) (unknown) Discharge Plan (units (unknown) date) unknown) (unknown) (no (unknown) (unknown) Discontinued (units (u nknown) date) Medications unknown) (unknown) (no (unknown) (unknown) ED Orders (units (unkn own) date) unknown) (unknown) (no (unknown) (unknown) ER Physician: (units ( unknown) date) [place] unknown) (unknown) (no (unknown) (unknown) Emergency Report (units (unknown) date) unknown) (unknown) (no (unknown) (unknown) Endorses lower (units (unknown) date) abdominal pain. unknown) (unknown) (no (unknown) (unknown) Eos # (Auto) 100 (units (unknown) date) (0-450) /uL unknown) (unknown) (no (unknown) (unknown) Eos % (Auto) 1.0 (units (unknown) date) L (2-4) % unknown) (unknown) (no (unknown) (unknown) Esterase (units (unkno wn) date) unknown) (unknown) (no (unknown) (unknown) Estimated GFR > (units (unknown) date) 60 (>60) mL/min unknown) (unknown) (no (unknown) (unknown) Exam Narrative: (units (unknown) date) unknown) (unknown) (no (unknown) (unknown) Exam (units (unkno wn) date) unknown) (unknown) (no (unknown) (unknown) FINDINGS:? (units (unk nown) date) unknown) (unknown) (no (unknown) (unknown) GASTROINTESTINAL: (units (unknown) date) Abdomen soft, mild unknown) left-sided tenderness, nondistended without (unknown) (no (unknown) (unknown) GASTROINTESTINAL: (units (unknown) date) Denies current unknown) nausea, vomiting, diarrhea, constipation. (unknown) (no (unknown) (unknown) GENERAL: Denies (units (unknown) date) fatigue, fever, unknown) sweats. Endorses chills. (unknown) (no (unknown) (unknown) GENERAL: This is a (units (unknown) date) well-nourished, unknown) well-developed patient, in no acute distress. (unknown) (no (unknown) (unknown) : Denies (units (unk nown) date) dysuria, unknown) frequency, incontinence, hematuria, urinary retention, (unknown) (no (unknown) (unknown) General (units (unkno wn) date) unknown) (unknown) (no (unknown) (unknown) Glucose 97 (units (unk nown) date) (70-100) mg/dL unknown) (unknown) (no (unknown) (unknown) HEAD: Atraumatic. (units (unknown) date) Normocephalic. unknown) (unknown) (no (unknown) (unknown) HEENT: Denies (units ( unknown) date) sinus pain, ear unknown) pain, sore throat, difficulty swallowing, (unknown) (no (unknown) (unknown) HPI - Female (units (u nknown) date) Genitourinary unknown) (unknown) (no (unknown) (unknown) HPI Narrative: (units (unknown) date) unknown) (unknown) (no (unknown) (unknown) Hct 36.2 (36-46) (units (unknown) date) % unknown) (unknown) (no (unknown) (unknown) Hgb 12.2 (units (unkno wn) date) (12.0-16.0) g/dL unknown) (unknown) (no (unknown) (unknown) History of (units (unk nown) date) Present Illness unknown) (unknown) (no (unknown) (unknown) IMPRESSION:? More (units (unknown) date) than 12 follicles unknown) can be seen involving each ovary, which is (unknown) (no (unknown) (unknown) INDICATIONS:? (units ( unknown) date) DUB, PAIN X 3 unknown) MONTHS (unknown) (no (unknown) (unknown) Imaging Data (units (u nknown) date) unknown) (unknown) (no (unknown) (unknown) Initial Vital (units ( unknown) date) Signs unknown) (unknown) (no (unknown) (unknown) Initial Vital (units ( unknown) date) Signs: unknown) (unknown) (no (unknown) (unknown) Instructions: (units ( unknown) date) Polycystic Ovary unknown) Syndrome (Alternative Therapy), DI for Urinary (unknown) (no (unknown) (unknown) Irregular (units (unkn own) date) menstrual cycle unknown) (unknown) (no (unknown) (unknown) [facility] (units (unknown) date) [address] unknown) [place] [address] (unknown) (no (unknown) (unknown) [facility] (units (unknown) date) unknown) (unknown) (no (unknown) (unknown) Ketorolac (units (unkn own) date) Tromethamine unknown) (Ketorolac 30 Mg/Ml Vial) 30 mg IV NOW ONE (unknown) (no (unknown) (unknown) Lab Data (units (unkno wn) date) unknown) (unknown) (no (unknown) (unknown) Lab Results (units (un known) date) unknown) (unknown) (no (unknown) (unknown) Labs: (units (unkno wn) date) unknown) (unknown) (no (unknown) (unknown) Last Admin: (units (un known) date) 08/25/22 12:52 unknown) Dose: 30 mg (unknown) (no (unknown) (unknown) Last Alcoholic (units (unknown) date) Drink: none unknown) (unknown) (no (unknown) (unknown) Loc: ED (units (unkno wn) date) unknown) (unknown) (no (unknown) (unknown) Lymph # (Auto) (units (unknown) date) 1200 (0759-1557) unknown) /uL (unknown) (no (unknown) (unknown) Lymph % (Auto) (units (unknown) date) 11.1 L (25-40) % unknown) (unknown) (no (unknown) (unknown) MCH 28.5 (26-34) (units (unknown) date) PG unknown) (unknown) (no (unknown) (unknown) MCHC 33.8 (30-36) (units (unknown) date) % unknown) (unknown) (no (unknown) (unknown) MCV 84.5 (80-100) (units (unknown) date) fL unknown) (unknown) (no (unknown) (unknown) MDM - Female (units (u nknown) date) Genitourinary unknown) (unknown) (no (unknown) (unknown) MR#: [id number] (units (unknown) date) unknown) (unknown) (no (unknown) (unknown) MSK: Denies (units (un known) date) weakness, joint unknown) pain, or bony pain. (unknown) (no (unknown) (unknown) MSK: Moves all (units (unknown) date) extremities. unknown) Normal range of motion, no clubbing or edema. (unknown) (no (unknown) (unknown) Medical History (units (unknown) date) (Reviewed 08/25/22 unknown) @ 13:06 by SIMON Reilly) (unknown) (no (unknown) (unknown) Medication (units (unk nown) date) Instructions unknown) Recorded (unknown) (no (unknown) (unknown) Miscellaneous,Doc (units (unknown) date) MD allen [Primary unknown) Care Provider] (unknown) (no (unknown) (unknown) Mode of arrival: (units (unknown) date) Ambulatory unknown) (unknown) (no (unknown) (unknown) [place] # (Auto) 600 (units (unknown) date) (0-900) /uL unknown) (unknown) (no (unknown) (unknown) [place] % (Auto) 5.7 (units (unknown) date) (3-14) % unknown) (unknown) (no (unknown) (unknown) NEURO: A+O x 3. (units (unknown) date) unknown) (unknown) (no (unknown) (unknown) NEUROLOGIC: (units (un known) date) Denies weakness, unknown) dizziness, headache, numbness, confusion. (unknown) (no (unknown) (unknown) Narrative (units (unkn own) date) unknown) (unknown) (no (unknown) (unknown) Narrative: See (units (unknown) date) HPI. unknown) (unknown) (no (unknown) (unknown) Narrative: (units (unk nown) date) unknown) (unknown) (no (unknown) (unknown) Neurovascularly (units (unknown) date) intact. Mild left unknown) lower back pain. No CVA tenderness. (unknown) (no (unknown) (unknown) Neut # (Auto) (units ( unknown) date) 9000 H (4200-9382) unknown) /uL (unknown) (no (unknown) (unknown) Neut % (Auto) (units ( unknown) date) 81.9 H (50-75) % unknown) (unknown) (no (unknown) (unknown) New (units (unkno wn) date) unknown) (unknown) (no (unknown) (unknown) No Known Drug (units ( unknown) date) Allergies Allergy unknown) Verified 05/05/22 17:52 (unknown) (no (unknown) (unknown) [place]] (units (un known) date) unknown) (unknown) (no (unknown) (unknown) Ordered: (units (unkno wn) date) unknown) (unknown) (no (unknown) (unknown) Ordering (units (unkno wn) date) Provider: unknown) Pham Mandujano D.O. (unknown) (no (unknown) (unknown) Orders (units (unkno wn) date) unknown) (unknown) (no (unknown) (unknown) Other:? No (units (unk nown) date) pathologic free unknown) abdominal or pelvic fluid. (unknown) (no (unknown) (unknown) Ovaries:? The (units (u nknown) date) right ovary unknown) measures 1.9 x 3.3 x 2.3 cm, with a calculated ovarian (unknown) (no (unknown) (unknown) Oxygen Delivery (units (unknown) date) Method 08/25/22 unknown) 10:09 (unknown) (no (unknown) (unknown) Oxygen Delivery (units (unknown) date) Method Room Air unknown) Room Air (unknown) (no (unknown) (unknown) PCOS. Patient has (units (unknown) date) not been seen her unknown) family doctor for this because she does not (unknown) (no (unknown) (unknown) PROCEDURE:? US (units (unknown) date) PELVIC COMPLETE unknown) (unknown) (no (unknown) (unknown) PSYCHIATRIC: No (units (unknown) date) concerning unknown) psychosocial issues. (unknown) (no (unknown) (unknown) Patient (units (unkno wn) date) Disposition: Home unknown) (unknown) (no (unknown) (unknown) Patient History (units (unknown) date) unknown) (unknown) (no (unknown) (unknown) Patient states (units (unknown) date) that she has been unknown) taking iron for this. Patient has a history of (unknown) (no (unknown) (unknown) Patient: (units (unkno wn) date) Elisa Monterroso unknown) MR#: [id number] (unknown) (no (unknown) (unknown) Patient: (units (unkno wn) date) Elisa Monterroso unknown) (unknown) (no (unknown) (unknown) Plt Count 347 (units ( unknown) date) (150-400) X103/uL unknown) (unknown) (no (unknown) (unknown) Potassium 4.2 (units ( unknown) date) (3.4-5.1) mmol/L unknown) (unknown) (no (unknown) (unknown) Prescriptions: (units (unknown) date) unknown) (unknown) (no (unknown) (unknown) Previous Rx's (units ( unknown) date) unknown) (unknown) (no (unknown) (unknown) Procedure: US (units ( unknown) date) pelvic complete unknown) (unknown) (no (unknown) (unknown) Pulse Oximetry 99 (units (unknown) date) 02/11/23 10:09 unknown) (unknown) (no (unknown) (unknown) Pulse Oximetry 99 (units (unknown) date) 100 unknown) (unknown) (no (unknown) (unknown) Pulse Rate 104 H (units (unknown) date) 08/25/22 10:09 unknown) (unknown) (no (unknown) (unknown) Pulse Rate 104 H (units (unknown) date) 100 H unknown) (unknown) (no (unknown) (unknown) RBC 4.29 (units (unkno wn) date) (4.0-5.2) X106/uL unknown) (unknown) (no (unknown) (unknown) RDW 13.2 (units (unkno wn) date) (11.6-14.8) % unknown) (unknown) (no (unknown) (unknown) RESPIRATORY: (units (u nknown) date) Breath sounds unknown) equal and clear bilaterally. No wheezes, rales, or (unknown) (no (unknown) (unknown) RESPIRATORY: (units (u nknown) date) Denies dyspnea, unknown) cough, wheezing, sputum. (unknown) (no (unknown) (unknown) Radiologist's (units ( unknown) date) Impression: unknown) (unknown) (no (unknown) (unknown) Real-time (units (unkn own) date) scanning was unknown) performed of the pelvic organs, with image (unknown) (no (unknown) (unknown) Referrals: (units (unk nown) date) unknown) (unknown) (no (unknown) (unknown) Related Data (units (u nknown) date) unknown) (unknown) (no (unknown) (unknown) Resource line at (units (unknown) date) [phone]. They unknown) will ask some questions about your medical (unknown) (no (unknown) (unknown) Respiratory Rate (units (unknown) date) 18 08/25/22 10:09 unknown) (unknown) (no (unknown) (unknown) Respiratory Rate (units (unknown) date) 18 16 unknown) (unknown) (no (unknown) (unknown) Review of Systems (units (unknown) date) unknown) (unknown) (no (unknown) (unknown) Reviewed (units (unkno wn) date) unknown) (unknown) (no (unknown) (unknown) SKIN: Denies (units (u nknown) date) rash, skin unknown) lesions, or pruritis. (unknown) (no (unknown) (unknown) SKIN: Warm, dry, (units (unknown) date) no rashes or unknown) lesions noted. (unknown) (no (unknown) (unknown) Signed By: (units (unk nown) date) unknown) (unknown) (no (unknown) (unknown) Signed (units (unkno wn) date) unknown) (unknown) (no (unknown) (unknown) Sodium 140 (units (unk nown) date) (137-145) mmol/L unknown) (unknown) (no (unknown) (unknown) Source: patient (units (unknown) date) unknown) (unknown) (no (unknown) (unknown) Stand Alone (units (un known) date) Forms: Patient unknown) Portal/API (unknown) (no (unknown) (unknown) Stated complaint: (units (unknown) date) shaking; bad unknown) period trouble (unknown) (no (unknown) (unknown) Stop: 08/25/22 (units (unknown) date) 12:47 unknown) (unknown) (no (unknown) (unknown) Substance Use (units ( unknown) date) Type: marijuana unknown) (unknown) (no (unknown) (unknown) TECHNIQUE:? (units (un known) date) unknown) (unknown) (no (unknown) (unknown) Temperature 97.8 (units (unknown) date) F 08/25/22 10:09 unknown) (unknown) (no (unknown) (unknown) Temperature 97.8 (units (unknown) date) F unknown) (unknown) (no (unknown) (unknown) Time Seen by (units (u nknown) date) Provider: 08/25/22 unknown) 12:00 (unknown) (no (unknown) (unknown) To assist (units (unkn own) date) unknown) (unknown) (no (unknown) (unknown) Toradol for your (units (unknown) date) pain, please do unknown) not take anymore ibuprofen or naproxen today, (unknown) (no (unknown) (unknown) Tract Infection (units (unknown) date) (UTI) unknown) (unknown) (no (unknown) (unknown) Type and Screen (units (unknown) date) Stat unknown) (unknown) (no (unknown) (unknown) 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: (units (unkn own) date) unknown) (unknown) (no (unknown) (unknown) US pelvic (units (unkn own) date) complete Stat unknown) (unknown) (no (unknown) (unknown) UTI (urinary (units (u nknown) date) tract infection), unknown) PCOS (polycystic ovarian syndrome) (unknown) (no (unknown) (unknown) Ultrasound Report (units (unknown) date) unknown) (unknown) (no (unknown) (unknown) Urine Dip (units (unkn own) date) unknown) (unknown) (no (unknown) (unknown) Urine Microscopic (units (unknown) date) Stat unknown) (unknown) (no (unknown) (unknown) Urine Specific (units (unknown) date) [place] 1.025 unknown) (unknown) (no (unknown) (unknown) Uterus:? Uterus (units (unknown) date) is anteverted and unknown) normal in size at 8 x 3.3 x 4.8 cm. The (unknown) (no (unknown) (unknown) Vital Signs - 8 (units (unknown) date) hr unknown) (unknown) (no (unknown) (unknown) Vital Signs (units (un known) date) unknown) (unknown) (no (unknown) (unknown) Vital signs: (units (u nknown) date) unknown) (unknown) (no (unknown) (unknown) WBC 11.0 (units (unkno wn) date) (4.5-11.0) X103/uL unknown) (unknown) (no (unknown) (unknown) We strive to (units (u nknown) date) produce accurate, unknown) complete, and clear reports of imaging services. (unknown) (no (unknown) (unknown) [ ] New (units (unkno wn) date) medication written unknown) as a paper prescription (unknown) (no (unknown) (unknown) [ ] No new (units (unk nown) date) medications given unknown) (unknown) (no (unknown) (unknown) [Embedded Image (units (unknown) date) Not Available] unknown) (unknown) (no (unknown) (unknown) [x ] New (units (unkno wn) date) medication unknown) prescriptions sent to your pharmacy: [facility] in (unknown) (no (unknown) (unknown) adnexal and (units (un known) date) endometrial unknown) structures by transabdominal scanning.? (unknown) (no (unknown) (unknown) alcohol intake (units (unknown) date) frequency: other unknown) (unknown) (no (unknown) (unknown) along the (units (unkn own) date) unknown) (unknown) (no (unknown) (unknown) and OBGYN, (units (unk nown) date) preferably who unknown) specializes in PCOS. For any worsening symptoms, (unknown) (no (unknown) (unknown) and a pad (units (unkn own) date) multiple times per unknown) day, sometimes as frequently as every hour. (unknown) (no (unknown) (unknown) and voice (units (unkn own) date) recognition unknown) software. Therefore, it may contain abnormal punctuation, (unknown) (no (unknown) (unknown) appointment. Let (units (unknown) date) them know you were unknown) seen in the Emergency Department and that we (unknown) (no (unknown) (unknown) ask that you be (units (unknown) date) seen in follow up. unknown) We will electronically transmit a record of (unknown) (no (unknown) (unknown) bleeding x3 (units (un known) date) months. Patient unknown) states that she has been soaking through a tampon (unknown) (no (unknown) (unknown) breathing, fever (units (unknown) date) greater than 101 unknown) F, shaking chills, persistent vomiting to the (unknown) (no (unknown) (unknown) but may restart (units (unknown) date) tomorrow. Will unknown) prescribe an antibiotic for urinary tract (unknown) (no (unknown) (unknown) cephalexin 500 mg (units (unknown) date) capsule 1,000 mg unknown) PO BID uti 7 days #28 caps 08/25/22 (unknown) (no (unknown) (unknown) cephalexin 500 mg (units (unknown) date) capsule unknown) (unknown) (no (unknown) (unknown) consistent (units (unk nown) date) unknown) (unknown) (no (unknown) (unknown) demonstrates a (units (unknown) date) heterogeneous unknown) appearance.? No abnormal vascularity can be seen (unknown) (no (unknown) (unknown) dizziness. (units (unk nown) date) unknown) (unknown) (no (unknown) (unknown) documentation.? (units (unknown) date) unknown) (unknown) (no (unknown) (unknown) emergency (units (unkn own) date) department. unknown) (unknown) (no (unknown) (unknown) endometrial (units (un known) date) stripe. unknown) (unknown) (no (unknown) (unknown) endometrium (units (un known) date) unknown) (unknown) (no (unknown) (unknown) family doctor and (units (unknown) date) explains how much unknown) pain she is in, is told to go to the (unknown) (no (unknown) (unknown) flank pain.. (units (u nknown) date) Endorses increased unknown) vaginal bleeding. (unknown) (no (unknown) (unknown) follicles can be (units (unknown) date) unknown) (unknown) (no (unknown) (unknown) guarding or (units (un known) date) rebound. No unknown) suprapubic pain. (unknown) (no (unknown) (unknown) history and help (units (unknown) date) get you set up unknown) with a doctor in the community. (unknown) (no (unknown) (unknown) homogeneous. ? (units (unknown) date) The endometrium unknown) measures 7 mm combined thickness.? The (unknown) (no (unknown) (unknown) inaccuracies. (units ( unknown) date) unknown) (unknown) (no (unknown) (unknown) infection. Please (units (unknown) date) contact the number unknown) below in order to obtain a family doctor (unknown) (no (unknown) (unknown) insertions and/or (units (unknown) date) omissions. unknown) Occasional wrong-word or sound-alike substitutions (unknown) (no (unknown) (unknown) intact, cap (units (un known) date) refill <2 sec. unknown) (unknown) (no (unknown) (unknown) like them. (units (unk nown) date) Patient's mother, unknown) a nurse, states that every time she contacts that (unknown) (no (unknown) (unknown) lower back and (units (unknown) date) abdominal pain x1 unknown) month and increased and persistent vaginal (unknown) (no (unknown) (unknown) may (units (unkno wn) date) unknown) (unknown) (no (unknown) (unknown) myometrium is (units ( unknown) date) unknown) (unknown) (no (unknown) (unknown) occur. Though we (units (unknown) date) review the report unknown) and make efforts to correct it, we do (unknown) (no (unknown) (unknown) of 7.4 cc. The (units (unknown) date) left ovary unknown) measures 3 x 2.6 x 2.5 cm, with a calculated ovarian (unknown) (no (unknown) (unknown) please return to (units (unknown) date) the emergency unknown) department. (unknown) (no (unknown) (unknown) point that you (units (unknown) date) cannot drink unknown) fluids, or other new or worsening symptoms. (unknown) (no (unknown) (unknown) recommend that (units (unknown) date) unknown) (unknown) (no (unknown) (unknown) rhonchi. No (units (un known) date) cough. No unknown) increased respiratory effort. No accessory muscle use. (unknown) (no (unknown) (unknown) seen in each (units (u nknown) date) ovary.? No adnexal unknown) masses are seen. (unknown) (no (unknown) (unknown) such as worsening (units (unknown) date) pain, severe unknown) headache, confusion, chest pain, difficulty (unknown) (no (unknown) (unknown) templates (units (unkn own) date) unknown) (unknown) (no (unknown) (unknown) the report be (units ( unknown) date) read carefully in unknown) proper context to recognize any text (unknown) (no (unknown) (unknown) the (units (unkno wn) date) unknown) (unknown) (no (unknown) (unknown) tobacco type: (units ( unknown) date) vaping unknown) (unknown) (no (unknown) (unknown) today's note if (units (unknown) date) your PCP is in our unknown) system (unknown) (no (unknown) (unknown) us in improving (units (unknown) date) patient care, this unknown) report was composed using standard report (unknown) (no (unknown) (unknown) volume of (units (unkn own) date) unknown) (unknown) (no (unknown) (unknown) volume (units (unkno wn) date) unknown) (unknown) (no (unknown) (unknown) with polycystic (units (unknown) date) ovarian syndrome.? unknown) Result panel 108 (unknown) (no (unknown) (unknown) (no value) (units (unk nown) date) unknown) (unknown) (no (unknown) (unknown) <Electronically (units (unknown) date) signed by Calixto mahoney) SIMON Chase> (unknown) (no (unknown) (unknown) (PCOS) (units (unkno wn) date) unknown) (unknown) (no (unknown) (unknown) *If you do not (units (unknown) date) have a primary unknown) care provider please contact the [facility] (unknown) (no (unknown) (unknown) *Please continue (units (unknown) date) to take your unknown) regular medications as directed. (unknown) (no (unknown) (unknown) *Please follow up (units (unknown) date) with your primary unknown) care provider in 2-3 days, call for an (unknown) (no (unknown) (unknown) *What to do: (units (u nknown) date) unknown) (unknown) (no (unknown) (unknown) *You have been (units (unknown) date) diagnosed with unknown) PCOS and a UTI. We have given you a injection of (unknown) (no (unknown) (unknown) 08/25/22 08/25/22 (units (unknown) date) 08/25/22 unknown) Range/Units (unknown) (no (unknown) (unknown) 08/25/22 10:13 (units (unknown) date) unknown) (unknown) (no (unknown) (unknown) 08/25/22 10:14 (units (unknown) date) unknown) (unknown) (no (unknown) (unknown) 08/25/22 12:30 (units (unknown) date) unknown) (unknown) (no (unknown) (unknown) 08/25/22 12:52 (units (unknown) date) unknown) (unknown) (no (unknown) (unknown) 08/25/22 1312 (units ( unknown) date) unknown) (unknown) (no (unknown) (unknown) 08/25/22 (units (unkno wn) date) Range/Units unknown) (unknown) (no (unknown) (unknown) 08/25/22 (units (unkno wn) date) unknown) (unknown) (no (unknown) (unknown) [id number] (units (unkno wn) date) unknown) (unknown) (no (unknown) (unknown) 1,000 mg PO BID 7 (units (unknown) date) Days Qty: 28 0RF unknown) (unknown) (no (unknown) (unknown) 10.4 cc. The (units (u nknown) date) ovaries have a unknown) normal sonographic appearance.? More than 12 (unknown) (no (unknown) (unknown) 10:09 08/25/22 (units (unknown) date) unknown) (unknown) (no (unknown) (unknown) 10:13 10:13 10:13 (units (unknown) date) unknown) (unknown) (no (unknown) (unknown) [address] [place] [address] (units (unknown) date) unknown) (unknown) (no (unknown) (unknown) 12:30 (units (unkno wn) date) unknown) (unknown) (no (unknown) (unknown) 12:41 (units (unkno wn) date) unknown) (unknown) (no (unknown) (unknown) 22-year-old (units (un known) date) female, daily unknown) smoker, presents to the emergency department with (unknown) (no (unknown) (unknown) 22-year-old (units (un known) date) female, with unknown) history of PCOS, presents to the walk-in clinic with (unknown) (no (unknown) (unknown) ? Return to ER if (units (unknown) date) you should have unknown) any new, worsening or concerning symptoms, (unknown) (no (unknown) (unknown) ? (units (unkno wn) date) unknown) (unknown) (no (unknown) (unknown) ?? (units (unkno wn) date) unknown) (unknown) (no (unknown) (unknown) Accession Number: (units (unknown) date) [id number] ?? unknown) (unknown) (no (unknown) (unknown) Acct:[id number] (units (unknown) date) unknown) (unknown) (no (unknown) (unknown) Activity (units (unkno wn) date) Restrictions/Addit unknown) ional Instructions: (unknown) (no (unknown) (unknown) Additional (units (unkn own) date) endovaginal unknown) scanning was necessary due to incomplete visualization of (unknown) (no (unknown) (unknown) Age/Sex: 22 / F (units (unknown) date) unknown) (unknown) (no (unknown) (unknown) Allergies (units (unkn own) date) unknown) (unknown) (no (unknown) (unknown) Allergy/AdvReac (units (unknown) date) Type Severity unknown) Reaction Status Date / Time (unknown) (no (unknown) (unknown) Amorphous (units (unkn own) date) Sediment 1 unknown) (unknown) (no (unknown) (unknown) Amorphous (units (unkn own) date) Sediment unknown) (unknown) (no (unknown) (unknown) [place] (units ( unknown) date) [id number] unknown) (unknown) (no (unknown) (unknown) Antibody Screen (units (unknown) date) Negative unknown) (unknown) (no (unknown) (unknown) Antibody Screen (units (unknown) date) unknown) (unknown) (no (unknown) (unknown) Approved by: (units (u nknown) date) Michael De León, unknownMarcia Hamm on 08/25/2022 at 10:55 ? (unknown) (no (unknown) (unknown) BUN (7-17) mg/dL (units (unknown) date) unknown) (unknown) (no (unknown) (unknown) BUN 11 (7-17) (units ( unknown) date) mg/dL unknown) (unknown) (no (unknown) (unknown) BUN/Creatinine (units (unknown) date) Ratio (6-22) unknown) (unknown) (no (unknown) (unknown) BUN/Creatinine (units (unknown) date) Ratio 17.7 (6-22) unknown) (unknown) (no (unknown) (unknown) Basic Metabolic (units (unknown) date) Panel Stat unknown) (unknown) (no (unknown) (unknown) Baso # (Auto) (units ( unknown) date) (0-100) /uL unknown) (unknown) (no (unknown) (unknown) Baso # (Auto) 0 (units (unknown) date) (0-100) /uL unknown) (unknown) (no (unknown) (unknown) Baso % (Auto) (units ( unknown) date) (0-2) % unknown) (unknown) (no (unknown) (unknown) Baso % (Auto) 0.3 (units (unknown) date) (0-2) % unknown) (unknown) (no (unknown) (unknown) Bedside Urine (units ( unknown) date) Bilirubin - unknown) Negative (unknown) (no (unknown) (unknown) Bedside Urine (units ( unknown) date) Glucose Negative unknown) (unknown) (no (unknown) (unknown) Bedside Urine (units ( unknown) date) Ketone - Negative unknown) (unknown) (no (unknown) (unknown) Bedside Urine (units ( unknown) date) Leukocytes ++ 125 unknown) (unknown) (no (unknown) (unknown) Bedside Urine (units ( unknown) date) Nitrite + Positive unknown) (unknown) (no (unknown) (unknown) Bedside Urine (units ( unknown) date) Occult Blood unknown) (unknown) (no (unknown) (unknown) Bedside Urine (units ( unknown) date) Protein ++ 100 unknown) (unknown) (no (unknown) (unknown) Bedside Urine (units ( unknown) date) Urobilinogen - unknown) Negative (unknown) (no (unknown) (unknown) Bedside Urine pH (units (unknown) date) 6.0 unknown) (unknown) (no (unknown) (unknown) Blood Pressure (units (unknown) date) 128/78 08/25/22 unknown) 10:09 (unknown) (no (unknown) (unknown) Blood Pressure (units (unknown) date) 128/78 131/60 unknown) (unknown) (no (unknown) (unknown) Blood Type O (units (u nknown) date) Negative unknown) (unknown) (no (unknown) (unknown) Blood Type (units (unk nown) date) unknown) (unknown) (no (unknown) (unknown) CARDIOVASCULAR: (units (unknown) date) Denies chest pain, unknown) palpitations, edema. (unknown) (no (unknown) (unknown) CARDIOVASCULAR: (units (unknown) date) Regular rate and unknown) rhythm without murmurs, peripheral pulses (unknown) (no (unknown) (unknown) COMPARISON:? (units (u nknown) date) [facility], unknown) US, US PELVIC COMPLETE, 08/16/2020, 8:45. (unknown) (no (unknown) (unknown) Calcium (units (unkno wn) date) (8.4-10.2) mg/dL unknown) (unknown) (no (unknown) (unknown) Calcium 9.1 (units (un known) date) (8.4-10.2) mg/dL unknown) (unknown) (no (unknown) (unknown) Carbon Dioxide (units (unknown) date) (22-32) mmol/L unknown) (unknown) (no (unknown) (unknown) Carbon Dioxide 26 (units (unknown) date) (22-32) mmol/L unknown) (unknown) (no (unknown) (unknown) Chief complaint: (units (unknown) date) Vaginal Bleeding unknown) (unknown) (no (unknown) (unknown) Chloride (98-107) (units (unknown) date) mmol/L unknown) (unknown) (no (unknown) (unknown) Chloride 102 (units (u nknown) date) (98-107) mmol/L unknown) (unknown) (no (unknown) (unknown) Clinical (units (unkno wn) date) Impression: unknown) (unknown) (no (unknown) (unknown) Complete Blood (units (unknown) date) Count AUTO DIFF unknown) Stat (unknown) (no (unknown) (unknown) Course (units (unkno wn) date) unknown) (unknown) (no (unknown) (unknown) Creatinine (units (unk nown) date) (0.52-1.04) mg/dL unknown) (unknown) (no (unknown) (unknown) Creatinine 0.62 (units (unknown) date) (0.52-1.04) mg/dL unknown) (unknown) (no (unknown) (unknown) : 2000 (units (unknown) date) Acct:[id number] unknown) (unknown) (no (unknown) (unknown) : 2000 (units (unknown) date) unknown) (unknown) (no (unknown) (unknown) Date of Service: (units (unknown) date) 08/25/22 unknown) (unknown) (no (unknown) (unknown) Departure (units (unkn own) date) unknown) (unknown) (no (unknown) (unknown) Dictated by: (units (u nknown) date) meredith Black M.D. on 08/25/2022 at 10:54 ? ? (unknown) (no (unknown) (unknown) Differential (units (u nknown) date) Diagnosis unknown) (unknown) (no (unknown) (unknown) Differential (units (u nknown) date) diagnosis: Likely unknown) urinary tract infection, dysmenorrhea and other (unknown) (no (unknown) (unknown) Discharge Plan (units (unknown) date) unknown) (unknown) (no (unknown) (unknown) Discontinued (units (u nknown) date) Medications unknown) (unknown) (no (unknown) (unknown) Discussed plan of (units (unknown) date) care and return unknown) precautions with patient and mother, (unknown) (no (unknown) (unknown) ED Orders (units (unkn own) date) unknown) (unknown) (no (unknown) (unknown) ER Physician: (units ( unknown) date) Calixto Chase unknown) (unknown) (no (unknown) (unknown) Emergency Report (units (unknown) date) unknown) (unknown) (no (unknown) (unknown) Endorses lower (units (unknown) date) abdominal pain. unknown) (unknown) (no (unknown) (unknown) Eos # (Auto) (units (u nknown) date) (0-450) /uL unknown) (unknown) (no (unknown) (unknown) Eos # (Auto) 100 (units (unknown) date) (0-450) /uL unknown) (unknown) (no (unknown) (unknown) Eos % (Auto) (units (u nknown) date) (2-4) % unknown) (unknown) (no (unknown) (unknown) Eos % (Auto) 1.0 (units (unknown) date) L (2-4) % unknown) (unknown) (no (unknown) (unknown) Esterase (units (unkno wn) date) unknown) (unknown) (no (unknown) (unknown) Estimated GFR > (units (unknown) date) 60 (>60) mL/min unknown) (unknown) (no (unknown) (unknown) Estimated GFR (units ( unknown) date) (>60) mL/min unknown) (unknown) (no (unknown) (unknown) Exam Narrative: (units (unknown) date) unknown) (unknown) (no (unknown) (unknown) Exam (units (unkno wn) date) unknown) (unknown) (no (unknown) (unknown) FINDINGS:? (units (unk nown) date) unknown) (unknown) (no (unknown) (unknown) GASTROINTESTINAL: (units (unknown) date) Abdomen soft, mild unknown) left-sided tenderness, nondistended without (unknown) (no (unknown) (unknown) GASTROINTESTINAL: (units (unknown) date) Denies current unknown) nausea, vomiting, diarrhea, constipation. (unknown) (no (unknown) (unknown) GENERAL: Denies (units (unknown) date) fatigue, fever, unknown) sweats. Endorses chills. (unknown) (no (unknown) (unknown) GENERAL: This is a (units (unknown) date) well-nourished, unknown) well-developed patient, in no acute distress. (unknown) (no (unknown) (unknown) : Denies (units (unk nown) date) dysuria, unknown) frequency, incontinence, hematuria, urinary retention, (unknown) (no (unknown) (unknown) General (units (unkno wn) date) unknown) (unknown) (no (unknown) (unknown) Glucose (70-100) (units (unknown) date) mg/dL unknown) (unknown) (no (unknown) (unknown) Glucose 97 (units (unk nown) date) (70-100) mg/dL unknown) (unknown) (no (unknown) (unknown) HEAD: Atraumatic. (units (unknown) date) Normocephalic. unknown) (unknown) (no (unknown) (unknown) HEENT: Denies (units ( unknown) date) sinus pain, ear unknown) pain, sore throat, difficulty swallowing, (unknown) (no (unknown) (unknown) HPI - Female (units (u nknown) date) Genitourinary unknown) (unknown) (no (unknown) (unknown) HPI Narrative: (units (unknown) date) unknown) (unknown) (no (unknown) (unknown) Hct (36-46) % (units ( unknown) date) unknown) (unknown) (no (unknown) (unknown) Hct 36.2 (36-46) (units (unknown) date) % unknown) (unknown) (no (unknown) (unknown) Hgb (12.0-16.0) (units (unknown) date) g/dL unknown) (unknown) (no (unknown) (unknown) Hgb 12.2 (units (unkno wn) date) (12.0-16.0) g/dL unknown) (unknown) (no (unknown) (unknown) History of (units (unk nown) date) Present Illness unknown) (unknown) (no (unknown) (unknown) IMPRESSION:? More (units (unknown) date) than 12 follicles unknown) can be seen involving each ovary, which is (unknown) (no (unknown) (unknown) INDICATIONS:? (units ( unknown) date) DUB, PAIN X 3 unknown) MONTHS (unknown) (no (unknown) (unknown) Imaging Data (units (u nknown) date) unknown) (unknown) (no (unknown) (unknown) Initial Vital (units ( unknown) date) Signs unknown) (unknown) (no (unknown) (unknown) Initial Vital (units ( unknown) date) Signs: unknown) (unknown) (no (unknown) (unknown) Instructions: (units ( unknown) date) Polycystic Ovary unknown) Syndrome (Alternative Therapy), DI for Urinary (unknown) (no (unknown) (unknown) Irregular (units (unkn own) date) menstrual cycle unknown) (unknown) (no (unknown) (unknown) [facility] (units (unknown) date) [address] unknown) [place] [address] (unknown) (no (unknown) (unknown) [facility] (units (unknown) date) unknown) (unknown) (no (unknown) (unknown) Ketorolac (units (unkn own) date) Tromethamine unknown) (Ketorolac 30 Mg/Ml Vial) 30 mg IV NOW ONE (unknown) (no (unknown) (unknown) Lab Data (units (unkno wn) date) unknown) (unknown) (no (unknown) (unknown) Lab Results (units (un known) date) unknown) (unknown) (no (unknown) (unknown) Labs: (units (unkno wn) date) unknown) (unknown) (no (unknown) (unknown) Last Admin: (units (un known) date) 08/25/22 12:52 unknown) Dose: 30 mg (unknown) (no (unknown) (unknown) Last Alcoholic (units (unknown) date) Drink: none unknown) (unknown) (no (unknown) (unknown) Loc: ED (units (unkno wn) date) unknown) (unknown) (no (unknown) (unknown) Lymph # (Auto) (units (unknown) date) (5490-6190) /uL unknown) (unknown) (no (unknown) (unknown) Lymph # (Auto) (units (unknown) date) 1200 (7364-3863) unknown) /uL (unknown) (no (unknown) (unknown) Lymph % (Auto) (units (unknown) date) (25-40) % unknown) (unknown) (no (unknown) (unknown) Lymph % (Auto) (units (unknown) date) 11.1 L (25-40) % unknown) (unknown) (no (unknown) (unknown) MCH (26-34) PG (units (unknown) date) unknown) (unknown) (no (unknown) (unknown) MCH 28.5 (26-34) (units (unknown) date) PG unknown) (unknown) (no (unknown) (unknown) MCHC (30-36) % (units (unknown) date) unknown) (unknown) (no (unknown) (unknown) MCHC 33.8 (30-36) (units (unknown) date) % unknown) (unknown) (no (unknown) (unknown) MCV (80-100) fL (units (unknown) date) unknown) (unknown) (no (unknown) (unknown) MCV 84.5 (80-100) (units (unknown) date) fL unknown) (unknown) (no (unknown) (unknown) MDM - Female (units (u nknown) date) Genitourinary unknown) (unknown) (no (unknown) (unknown) MDM Narrative (units ( unknown) date) unknown) (unknown) (no (unknown) (unknown) MR#: [id number] (units (unknown) date) unknown) (unknown) (no (unknown) (unknown) MSK: Denies (units (un known) date) weakness, joint unknown) pain, or bony pain. (unknown) (no (unknown) (unknown) MSK: Moves all (units (unknown) date) extremities. unknown) Normal range of motion, no clubbing or edema. (unknown) (no (unknown) (unknown) Medical History (units (unknown) date) (Reviewed 08/25/22 unknown) @ 13:06 by SIMON Reilly) (unknown) (no (unknown) (unknown) Medical decision (units (unknown) date) making narrative: unknown) (unknown) (no (unknown) (unknown) Medication (units (unk nown) date) Instructions unknown) Recorded (unknown) (no (unknown) (unknown) Miscellaneous,Doc (units (unknown) date) MD allen [Primary unknown) Care Provider] (unknown) (no (unknown) (unknown) Mode of arrival: (units (unknown) date) Ambulatory unknown) (unknown) (no (unknown) (unknown) [place] # (Auto) (units ( unknown) date) (0-900) /uL unknown) (unknown) (no (unknown) (unknown) [place] # (Auto) 600 (units (unknown) date) (0-900) /uL unknown) (unknown) (no (unknown) (unknown) [place] % (Auto) (units ( unknown) date) (3-14) % unknown) (unknown) (no (unknown) (unknown) [place] % (Auto) 5.7 (units (unknown) date) (3-14) % unknown) (unknown) (no (unknown) (unknown) NEURO: A+O x 3. (units (unknown) date) unknown) (unknown) (no (unknown) (unknown) NEUROLOGIC: (units (un known) date) Denies weakness, unknown) dizziness, headache, numbness, confusion. (unknown) (no (unknown) (unknown) Narrative (units (unkn own) date) unknown) (unknown) (no (unknown) (unknown) Narrative: See (units (unknown) date) HPI. unknown) (unknown) (no (unknown) (unknown) Narrative: (units (unk nown) date) unknown) (unknown) (no (unknown) (unknown) Neurovascularly (units (unknown) date) intact. Mild left unknown) lower back pain. No CVA tenderness. (unknown) (no (unknown) (unknown) Neut # (Auto) (units ( unknown) date) (6049-8880) /uL unknown) (unknown) (no (unknown) (unknown) Neut # (Auto) (units ( unknown) date) 9000 H (9628-9794) unknown) /uL (unknown) (no (unknown) (unknown) Neut % (Auto) (units ( unknown) date) (50-75) % unknown) (unknown) (no (unknown) (unknown) Neut % (Auto) (units ( unknown) date) 81.9 H (50-75) % unknown) (unknown) (no (unknown) (unknown) New (units (unkno wn) date) unknown) (unknown) (no (unknown) (unknown) No Known Drug (units ( unknown) date) Allergies Allergy unknown) Verified 05/05/22 17:52 (unknown) (no (unknown) (unknown) [place]] (units (un known) date) unknown) (unknown) (no (unknown) (unknown) Ordered: (units (unkno wn) date) unknown) (unknown) (no (unknown) (unknown) Ordering (units (unkno wn) date) Provider: unknown) Pham Mandujano D.O. (unknown) (no (unknown) (unknown) Orders (units (unkno wn) date) unknown) (unknown) (no (unknown) (unknown) Other:? No (units (unk nown) date) pathologic free unknown) abdominal or pelvic fluid. (unknown) (no (unknown) (unknown) Ovaries:? The (units (u nknown) date) right ovary unknown) measures 1.9 x 3.3 x 2.3 cm, with a calculated ovarian (unknown) (no (unknown) (unknown) Oxygen Delivery (units (unknown) date) Method 08/25/22 unknown) 10:09 (unknown) (no (unknown) (unknown) Oxygen Delivery (units (unknown) date) Method Room Air unknown) Room Air (unknown) (no (unknown) (unknown) PCOS. Patient has (units (unknown) date) not been seen her unknown) family doctor for this because she does not (unknown) (no (unknown) (unknown) PROCEDURE:? US (units (unknown) date) PELVIC COMPLETE unknown) (unknown) (no (unknown) (unknown) PSYCHIATRIC: No (units (unknown) date) concerning unknown) psychosocial issues. (unknown) (no (unknown) (unknown) Patient (units (unkno wn) date) Disposition: Home unknown) (unknown) (no (unknown) (unknown) Patient History (units (unknown) date) unknown) (unknown) (no (unknown) (unknown) Patient states (units (unknown) date) that she has been unknown) taking iron for this. Patient has a history of (unknown) (no (unknown) (unknown) Patient: (units (unkno wn) date) Elisa Monterroso unknown) MR#: [id number] (unknown) (no (unknown) (unknown) Patient: (units (unkno wn) date) Elisa Monterroso unknown) (unknown) (no (unknown) (unknown) Plt Count (units (unkn own) date) (150-400) X103/uL unknown) (unknown) (no (unknown) (unknown) Plt Count 347 (units ( unknown) date) (150-400) X103/uL unknown) (unknown) (no (unknown) (unknown) Potassium (units (unkn own) date) (3.4-5.1) mmol/L unknown) (unknown) (no (unknown) (unknown) Potassium 4.2 (units ( unknown) date) (3.4-5.1) mmol/L unknown) (unknown) (no (unknown) (unknown) Prescriptions: (units (unknown) date) unknown) (unknown) (no (unknown) (unknown) Previous Rx's (units ( unknown) date) unknown) (unknown) (no (unknown) (unknown) Procedure: US (units ( unknown) date) pelvic complete unknown) (unknown) (no (unknown) (unknown) Pulse Oximetry 99 (units (unknown) date) 08/25/22 10:09 unknown) (unknown) (no (unknown) (unknown) Pulse Oximetry 99 (units (unknown) date) 100 unknown) (unknown) (no (unknown) (unknown) Pulse Rate 104 H (units (unknown) date) 08/25/22 10:09 unknown) (unknown) (no (unknown) (unknown) Pulse Rate 104 H (units (unknown) date) 100 H unknown) (unknown) (no (unknown) (unknown) RBC (4.0-5.2) (units ( unknown) date) X106/uL unknown) (unknown) (no (unknown) (unknown) RBC 4.29 (units (unkno wn) date) (4.0-5.2) X106/uL unknown) (unknown) (no (unknown) (unknown) RDW (11.6-14.8) % (units (unknown) date) unknown) (unknown) (no (unknown) (unknown) RDW 13.2 (units (unkno wn) date) (11.6-14.8) % unknown) (unknown) (no (unknown) (unknown) RESPIRATORY: (units (u nknown) date) Breath sounds unknown) equal and clear bilaterally. No wheezes, rales, or (unknown) (no (unknown) (unknown) RESPIRATORY: (units (u nknown) date) Denies dyspnea, unknown) cough, wheezing, sputum. (unknown) (no (unknown) (unknown) Radiologist's (units ( unknown) date) Impression: unknown) (unknown) (no (unknown) (unknown) Real-time (units (unkn own) date) scanning was unknown) performed of the pelvic organs, with image (unknown) (no (unknown) (unknown) Referrals: (units (unk nown) date) unknown) (unknown) (no (unknown) (unknown) Related Data (units (u nknown) date) unknown) (unknown) (no (unknown) (unknown) Resource line at (units (unknown) date) [phone]. They unknown) will ask some questions about your medical (unknown) (no (unknown) (unknown) Respiratory Rate (units (unknown) date) 18 08/25/22 10:09 unknown) (unknown) (no (unknown) (unknown) Respiratory Rate (units (unknown) date) 18 16 unknown) (unknown) (no (unknown) (unknown) Review of Systems (units (unknown) date) unknown) (unknown) (no (unknown) (unknown) Reviewed (units (unkno wn) date) unknown) (unknown) (no (unknown) (unknown) SKIN: Denies (units (u nknown) date) rash, skin unknown) lesions, or pruritis. (unknown) (no (unknown) (unknown) SKIN: Warm, dry, (units (unknown) date) no rashes or unknown) lesions noted. (unknown) (no (unknown) (unknown) Signed By: (units (unk nown) date) unknown) (unknown) (no (unknown) (unknown) Signed (units (unkno wn) date) unknown) (unknown) (no (unknown) (unknown) Sodium (137-145) (units (unknown) date) mmol/L unknown) (unknown) (no (unknown) (unknown) Sodium 140 (units (unk nown) date) (137-145) mmol/L unknown) (unknown) (no (unknown) (unknown) Source: patient (units (unknown) date) unknown) (unknown) (no (unknown) (unknown) Stand Alone (units (un known) date) Forms: Patient unknown) Portal/API (unknown) (no (unknown) (unknown) Stated complaint: (units (unknown) date) shaking; bad unknown) period trouble (unknown) (no (unknown) (unknown) Stop: 08/25/22 (units (unknown) date) 12:47 unknown) (unknown) (no (unknown) (unknown) Substance Use (units ( unknown) date) Type: marijuana unknown) (unknown) (no (unknown) (unknown) TECHNIQUE:? (units (un known) date) unknown) (unknown) (no (unknown) (unknown) Temperature 97.8 (units (unknown) date) F 08/25/22 10:09 unknown) (unknown) (no (unknown) (unknown) Temperature 97.8 (units (unknown) date) F unknown) (unknown) (no (unknown) (unknown) Time Seen by (units (u nknown) date) Provider: 08/25/22 unknown) 12:00 (unknown) (no (unknown) (unknown) To assist (units (unkn own) date) unknown) (unknown) (no (unknown) (unknown) Toradol for your (units (unknown) date) pain, please do unknown) not take anymore ibuprofen or naproxen today, (unknown) (no (unknown) (unknown) Tract Infection (units (unknown) date) (UTI) unknown) (unknown) (no (unknown) (unknown) Type and Screen (units (unknown) date) Stat unknown) (unknown) (no (unknown) (unknown) 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: (units (unkn own) date) unknown) (unknown) (no (unknown) (unknown) US pelvic (units (unkn own) date) complete Stat unknown) (unknown) (no (unknown) (unknown) UTI (urinary (units (u nknown) date) tract infection), unknown) PCOS (polycystic ovarian syndrome) (unknown) (no (unknown) (unknown) Ultrasound Report (units (unknown) date) unknown) (unknown) (no (unknown) (unknown) Ur Culture (units (unk nown) date) Indicated? unknown) Specimen cultured (unknown) (no (unknown) (unknown) Ur Culture (units (unk nown) date) Indicated? unknown) (unknown) (no (unknown) (unknown) Ur Squamous Epith (units (unknown) date) Cells (0-5/HPF) unknown) (unknown) (no (unknown) (unknown) Ur Squamous Epith (units (unknown) date) Cells 0-1 /hpf unknown) (0-5/HPF) (unknown) (no (unknown) (unknown) Urine Bacteria (units (unknown) date) (None) unknown) (unknown) (no (unknown) (unknown) Urine Bacteria (units (unknown) date) Many (>30) H unknown) (None) (unknown) (no (unknown) (unknown) Urine Culture (units ( unknown) date) Stat unknown) (unknown) (no (unknown) (unknown) Urine Dip (units (unkn own) date) unknown) (unknown) (no (unknown) (unknown) Urine Microscopic (units (unknown) date) Stat unknown) (unknown) (no (unknown) (unknown) Urine Mucus (units (un known) date) (Negative) unknown) (unknown) (no (unknown) (unknown) Urine Mucus 1+ H (units (unknown) date) (Negative) unknown) (unknown) (no (unknown) (unknown) Urine RBC (units (unkn own) date) (0-5/HPF) unknown) (unknown) (no (unknown) (unknown) Urine RBC (units (unkn own) date) 5-10/hpf H unknown) (0-5/HPF) (unknown) (no (unknown) (unknown) Urine Specific (units (unknown) date) [place] 1.025 unknown) (unknown) (no (unknown) (unknown) Urine WBC (units (unkn own) date) (0-5/HPF) unknown) (unknown) (no (unknown) (unknown) Urine WBC (units (unkn own) date) 30-100/hpf H unknown) (0-5/HPF) (unknown) (no (unknown) (unknown) Uterus:? Uterus (units (unknown) date) is anteverted and unknown) normal in size at 8 x 3.3 x 4.8 cm. The (unknown) (no (unknown) (unknown) Vital Signs - 8 (units (unknown) date) hr unknown) (unknown) (no (unknown) (unknown) Vital Signs (units (un known) date) unknown) (unknown) (no (unknown) (unknown) Vital signs: (units (u nknown) date) unknown) (unknown) (no (unknown) (unknown) WBC (4.5-11.0) (units (unknown) date) X103/uL unknown) (unknown) (no (unknown) (unknown) WBC 11.0 (units (unkno wn) date) (4.5-11.0) X103/uL unknown) (unknown) (no (unknown) (unknown) We strive to (units (u nknown) date) produce accurate, unknown) complete, and clear reports of imaging services. (unknown) (no (unknown) (unknown) [ ] New (units (unkno wn) date) medication written unknown) as a paper prescription (unknown) (no (unknown) (unknown) [ ] No new (units (unk nown) date) medications given unknown) (unknown) (no (unknown) (unknown) [Embedded Image (units (unknown) date) Not Available] unknown) (unknown) (no (unknown) (unknown) [x ] New (units (unkno wn) date) medication unknown) prescriptions sent to your pharmacy: [facility] in (unknown) (no (unknown) (unknown) adnexal and (units (un known) date) endometrial unknown) structures by transabdominal scanning.? (unknown) (no (unknown) (unknown) alcohol intake (units (unknown) date) frequency: other unknown) (unknown) (no (unknown) (unknown) along the (units (unkn own) date) unknown) (unknown) (no (unknown) (unknown) and OBGYN, (units (unk nown) date) preferably who unknown) specializes in PCOS. For any worsening symptoms, (unknown) (no (unknown) (unknown) and a pad (units (unkn own) date) multiple times per unknown) day, sometimes as frequently as every hour. (unknown) (no (unknown) (unknown) and nitrates. (units ( unknown) date) Will treat with unknown) cephalexin, as patient states that this has (unknown) (no (unknown) (unknown) and voice (units (unkn own) date) recognition unknown) software. Therefore, it may contain abnormal punctuation, (unknown) (no (unknown) (unknown) appointment. Let (units (unknown) date) them know you were unknown) seen in the Emergency Department and that we (unknown) (no (unknown) (unknown) ask that you be (units (unknown) date) seen in follow up. unknown) We will electronically transmit a record of (unknown) (no (unknown) (unknown) bleeding x3 (units (un known) date) months. Patient unknown) states that she has been soaking through a tampon (unknown) (no (unknown) (unknown) breathing, fever (units (unknown) date) greater than 101 unknown) F, shaking chills, persistent vomiting to the (unknown) (no (unknown) (unknown) but consistent (units (unknown) date) with PCOS. Vaginal unknown) ultrasound reveals 12 follicles on each (unknown) (no (unknown) (unknown) but may restart (units (unknown) date) tomorrow. Will unknown) prescribe an antibiotic for urinary tract (unknown) (no (unknown) (unknown) cephalexin 500 mg (units (unknown) date) capsule 1,000 mg unknown) PO BID uti 7 days #28 caps 08/25/22 (unknown) (no (unknown) (unknown) cephalexin 500 mg (units (unknown) date) capsule unknown) (unknown) (no (unknown) (unknown) consistent (units (unk nown) date) unknown) (unknown) (no (unknown) (unknown) demonstrates a (units (unknown) date) heterogeneous unknown) appearance.? No abnormal vascularity can be seen (unknown) (no (unknown) (unknown) dizziness. (units (unk nown) date) unknown) (unknown) (no (unknown) (unknown) documentation.? (units (unknown) date) unknown) (unknown) (no (unknown) (unknown) emergency (units (unkn own) date) department. unknown) (unknown) (no (unknown) (unknown) endometrial (units (un known) date) stripe. unknown) (unknown) (no (unknown) (unknown) endometrium (units (un known) date) unknown) (unknown) (no (unknown) (unknown) family doctor and (units (unknown) date) explains how much unknown) pain she is in, is told to go to the (unknown) (no (unknown) (unknown) flank pain.. (units (u nknown) date) Endorses increased unknown) vaginal bleeding. (unknown) (no (unknown) (unknown) follicles can be (units (unknown) date) unknown) (unknown) (no (unknown) (unknown) guarding or (units (un known) date) rebound. No unknown) suprapubic pain. (unknown) (no (unknown) (unknown) history and help (units (unknown) date) get you set up unknown) with a doctor in the community. (unknown) (no (unknown) (unknown) homogeneous. ? (units (unknown) date) The endometrium unknown) measures 7 mm combined thickness.? The (unknown) (no (unknown) (unknown) inaccuracies. (units ( unknown) date) unknown) (unknown) (no (unknown) (unknown) increased vaginal (units (unknown) date) bleeding and lower unknown) abdominal pain. Assessment was encouraging (unknown) (no (unknown) (unknown) infection. Please (units (unknown) date) contact the number unknown) below in order to obtain a family doctor (unknown) (no (unknown) (unknown) insertions and/or (units (unknown) date) omissions. unknown) Occasional wrong-word or sound-alike substitutions (unknown) (no (unknown) (unknown) intact, cap (units (un known) date) refill <2 sec. unknown) (unknown) (no (unknown) (unknown) like them. (units (unk nown) date) Patient's mother, unknown) a nurse, states that every time she contacts that (unknown) (no (unknown) (unknown) lower back and (units (unknown) date) abdominal pain x1 unknown) month and increased and persistent vaginal (unknown) (no (unknown) (unknown) may (units (unkno wn) date) unknown) (unknown) (no (unknown) (unknown) myometrium is (units ( unknown) date) unknown) (unknown) (no (unknown) (unknown) occur. Though we (units (unknown) date) review the report unknown) and make efforts to correct it, we do (unknown) (no (unknown) (unknown) of 7.4 cc. The (units (unknown) date) left ovary unknown) measures 3 x 2.6 x 2.5 cm, with a calculated ovarian (unknown) (no (unknown) (unknown) ovary, consistent (units (unknown) date) with PCOS. Patient unknown) was given a single dose of Toradol for her (unknown) (no (unknown) (unknown) pain. Point of (units (unknown) date) care urine dip was unknown) consistent with UTI, positive blood, leuks (unknown) (no (unknown) (unknown) please return to (units (unknown) date) the emergency unknown) department. (unknown) (no (unknown) (unknown) point that you (units (unknown) date) cannot drink unknown) fluids, or other new or worsening symptoms. (unknown) (no (unknown) (unknown) recommend that (units (unknown) date) unknown) (unknown) (no (unknown) (unknown) rhonchi. No (units (un known) date) cough. No unknown) increased respiratory effort. No accessory muscle use. (unknown) (no (unknown) (unknown) seen in each (units (u nknown) date) ovary.? No adnexal unknown) masses are seen. (unknown) (no (unknown) (unknown) such as worsening (units (unknown) date) pain, severe unknown) headache, confusion, chest pain, difficulty (unknown) (no (unknown) (unknown) templates (units (unkn own) date) unknown) (unknown) (no (unknown) (unknown) the report be (units ( unknown) date) read carefully in unknown) proper context to recognize any text (unknown) (no (unknown) (unknown) the (units (unkno wn) date) unknown) (unknown) (no (unknown) (unknown) to investigate (units (unknown) date) obtaining a family unknown) doctor and OBGYN that specializes in PCOS. (unknown) (no (unknown) (unknown) tobacco type: (units ( unknown) date) vaping unknown) (unknown) (no (unknown) (unknown) today's note if (units (unknown) date) your PCP is in our unknown) system (unknown) (no (unknown) (unknown) us in improving (units (unknown) date) patient care, this unknown) report was composed using standard report (unknown) (no (unknown) (unknown) verbalized (units (unk nown) date) understanding and unknown) were agreeable course of action. (unknown) (no (unknown) (unknown) volume of (units (unkn own) date) unknown) (unknown) (no (unknown) (unknown) volume (units (unkno wn) date) unknown) (unknown) (no (unknown) (unknown) with polycystic (units (unknown) date) ovarian syndrome.? unknown) (unknown) (no (unknown) (unknown) worked well for (units (unknown) date) her in the past. unknown) Provided a phone number for patient and mother Result panel 109 (unknown) (no (unknown) (unknown) (no value) (units (unk nown) date) unknown) (unknown) (no (unknown) (unknown) <Electronically (units (unknown) date) signed by [place] unknown) SIMON Chase> (unknown) (no (unknown) (unknown) (PCOS) (units (unkno wn) date) unknown) (unknown) (no (unknown) (unknown) *If you do not (units (unknown) date) have a primary unknown) care provider please contact the [facility] (unknown) (no (unknown) (unknown) *Please continue (units (unknown) date) to take your unknown) regular medications as directed. (unknown) (no (unknown) (unknown) *Please follow up (units (unknown) date) with your primary unknown) care provider in 2-3 days, call for an (unknown) (no (unknown) (unknown) *What to do: (units (u nknown) date) unknown) (unknown) (no (unknown) (unknown) *You have been (units (unknown) date) diagnosed with unknown) PCOS and a UTI. We have given you a injection of (unknown) (no (unknown) (unknown) 08/25/22 08/25/22 (units (unknown) date) 08/25/22 unknown) Range/Units (unknown) (no (unknown) (unknown) 08/25/22 10:13 (units (unknown) date) unknown) (unknown) (no (unknown) (unknown) 08/25/22 10:14 (units (unknown) date) unknown) (unknown) (no (unknown) (unknown) 08/25/22 12:30 (units (unknown) date) unknown) (unknown) (no (unknown) (unknown) 08/25/22 1312 (units ( unknown) date) unknown) (unknown) (no (unknown) (unknown) 08/25/22 (units (unkno wn) date) Range/Units unknown) (unknown) (no (unknown) (unknown) 08/25/22 (units (unkno wn) date) unknown) (unknown) (no (unknown) (unknown) [id number] (units (unkno wn) date) unknown) (unknown) (no (unknown) (unknown) 1,000 mg PO BID 7 (units (unknown) date) Days Qty: 28 0RF unknown) (unknown) (no (unknown) (unknown) 10.4 cc. The (units (u nknown) date) ovaries have a unknown) normal sonographic appearance.? More than 12 (unknown) (no (unknown) (unknown) 10:13 10:13 10:13 (units (unknown) date) unknown) (unknown) (no (unknown) (unknown) [address] (units (unknown) date) unknown) (unknown) (no (unknown) (unknown) 12:30 (units (unkno wn) date) unknown) (unknown) (no (unknown) (unknown) 12:41 (units (unkno wn) date) unknown) (unknown) (no (unknown) (unknown) 22-year-old (units (un known) date) female, daily unknown) smoker, presents to the emergency department with (unknown) (no (unknown) (unknown) 22-year-old (units (un known) date) female, with unknown) history of PCOS, presents to the walk-in clinic with (unknown) (no (unknown) (unknown) ? Return to ER if (units (unknown) date) you should have unknown) any new, worsening or concerning symptoms, (unknown) (no (unknown) (unknown) ? (units (unkno wn) date) unknown) (unknown) (no (unknown) (unknown) ?? (units (unkno wn) date) unknown) (unknown) (no (unknown) (unknown) Accession Number: (units (unknown) date) [id number] ?? unknown) (unknown) (no (unknown) (unknown) Acct:[id number] (units (unknown) date) unknown) (unknown) (no (unknown) (unknown) Activity (units (unkno wn) date) Restrictions/Addit unknown) ional Instructions: (unknown) (no (unknown) (unknown) Additional (units (unkn own) date) endovaginal unknown) scanning was necessary due to incomplete visualization of (unknown) (no (unknown) (unknown) Age/Sex: 22 / F (units (unknown) date) unknown) (unknown) (no (unknown) (unknown) Allergies (units (unkn own) date) unknown) (unknown) (no (unknown) (unknown) Allergy/AdvReac (units (unknown) date) Type Severity unknown) Reaction Status Date / Time (unknown) (no (unknown) (unknown) Amorphous (units (unkn own) date) Sediment 1 unknown) (unknown) (no (unknown) (unknown) Amorphous (units (unkn own) date) Sediment unknown) (unknown) (no (unknown) (unknown) [place], [place] (units ( unknown) date) [id number] unknown) (unknown) (no (unknown) (unknown) Antibody Screen (units (unknown) date) Negative unknown) (unknown) (no (unknown) (unknown) Antibody Screen (units (unknown) date) unknown) (unknown) (no (unknown) (unknown) Approved by: (units (u nknown) date) meredith Black M.D. on 08/25/2022 at 10:55 ? (unknown) (no (unknown) (unknown) BUN (7-17) mg/dL (units (unknown) date) unknown) (unknown) (no (unknown) (unknown) BUN 11 (7-17) (units ( unknown) date) mg/dL unknown) (unknown) (no (unknown) (unknown) BUN/Creatinine (units (unknown) date) Ratio (6-22) unknown) (unknown) (no (unknown) (unknown) BUN/Creatinine (units (unknown) date) Ratio 17.7 (6-22) unknown) (unknown) (no (unknown) (unknown) Basic Metabolic (units (unknown) date) Panel Stat unknown) (unknown) (no (unknown) (unknown) Baso # (Auto) (units ( unknown) date) (0-100) /uL unknown) (unknown) (no (unknown) (unknown) Baso # (Auto) 0 (units (unknown) date) (0-100) /uL unknown) (unknown) (no (unknown) (unknown) Baso % (Auto) (units ( unknown) date) (0-2) % unknown) (unknown) (no (unknown) (unknown) Baso % (Auto) 0.3 (units (unknown) date) (0-2) % unknown) (unknown) (no (unknown) (unknown) Bedside Urine (units ( unknown) date) Bilirubin - unknown) Negative (unknown) (no (unknown) (unknown) Bedside Urine (units ( unknown) date) Glucose Negative unknown) (unknown) (no (unknown) (unknown) Bedside Urine (units ( unknown) date) Ketone - Negative unknown) (unknown) (no (unknown) (unknown) Bedside Urine (units ( unknown) date) Leukocytes ++ 125 unknown) (unknown) (no (unknown) (unknown) Bedside Urine (units ( unknown) date) Nitrite + Positive unknown) (unknown) (no (unknown) (unknown) Bedside Urine (units ( unknown) date) Occult Blood unknown) (unknown) (no (unknown) (unknown) Bedside Urine (units ( unknown) date) Protein ++ 100 unknown) (unknown) (no (unknown) (unknown) Bedside Urine (units ( unknown) date) Urobilinogen - unknown) Negative (unknown) (no (unknown) (unknown) Bedside Urine pH (units (unknown) date) 6.0 unknown) (unknown) (no (unknown) (unknown) Blood Pressure (units (unknown) date) 128/78 08/25/22 unknown) 10:09 (unknown) (no (unknown) (unknown) Blood Pressure (units (unknown) date) 131/60 unknown) (unknown) (no (unknown) (unknown) Blood Type O (units (u nknown) date) Negative unknown) (unknown) (no (unknown) (unknown) Blood Type (units (unk nown) date) unknown) (unknown) (no (unknown) (unknown) CARDIOVASCULAR: (units (unknown) date) Denies chest pain, unknown) palpitations, edema. (unknown) (no (unknown) (unknown) CARDIOVASCULAR: (units (unknown) date) Regular rate and unknown) rhythm without murmurs, peripheral pulses (unknown) (no (unknown) (unknown) COMPARISON:? (units (u nknown) date) [facility], unknown) US, US PELVIC COMPLETE, 08/16/2020, 8:45. (unknown) (no (unknown) (unknown) Calcium (units (unkno wn) date) (8.4-10.2) mg/dL unknown) (unknown) (no (unknown) (unknown) Calcium 9.1 (units (un known) date) (8.4-10.2) mg/dL unknown) (unknown) (no (unknown) (unknown) Carbon Dioxide (units (unknown) date) (22-32) mmol/L unknown) (unknown) (no (unknown) (unknown) Carbon Dioxide 26 (units (unknown) date) (22-32) mmol/L unknown) (unknown) (no (unknown) (unknown) Chief complaint: (units (unknown) date) Vaginal Bleeding unknown) (unknown) (no (unknown) (unknown) Chloride (98-107) (units (unknown) date) mmol/L unknown) (unknown) (no (unknown) (unknown) Chloride 102 (units (u nknown) date) (98-107) mmol/L unknown) (unknown) (no (unknown) (unknown) Clinical (units (unkno wn) date) Impression: unknown) (unknown) (no (unknown) (unknown) Complete Blood (units (unknown) date) Count AUTO DIFF unknown) Stat (unknown) (no (unknown) (unknown) Course (units (unkno wn) date) unknown) (unknown) (no (unknown) (unknown) Creatinine (units (unk nown) date) (0.52-1.04) mg/dL unknown) (unknown) (no (unknown) (unknown) Creatinine 0.62 (units (unknown) date) (0.52-1.04) mg/dL unknown) (unknown) (no (unknown) (unknown) : 2000 (units (unknown) date) Acct:[id number] unknown) (unknown) (no (unknown) (unknown) : 2000 (units (unknown) date) unknown) (unknown) (no (unknown) (unknown) Date of Service: (units (unknown) date) 08/25/22 unknown) (unknown) (no (unknown) (unknown) Departure (units (unkn own) date) unknown) (unknown) (no (unknown) (unknown) Dictated by: (units (u nknown) date) meredith Black M.D. on 08/25/2022 at 10:54 ? ? (unknown) (no (unknown) (unknown) Differential (units (u nknown) date) Diagnosis unknown) (unknown) (no (unknown) (unknown) Differential (units (u nknown) date) diagnosis: Likely unknown) urinary tract infection, dysmenorrhea and other (unknown) (no (unknown) (unknown) Discharge Plan (units (unknown) date) unknown) (unknown) (no (unknown) (unknown) Discontinued (units (u nknown) date) Medications unknown) (unknown) (no (unknown) (unknown) Discussed plan of (units (unknown) date) care and return unknown) precautions with patient and mother, (unknown) (no (unknown) (unknown) Documented By: NR (units (unknown) date) unknown) (unknown) (no (unknown) (unknown) ED Orders (units (unkn own) date) unknown) (unknown) (no (unknown) (unknown) ER Physician: (units ( unknown) date) [place] unknown) (unknown) (no (unknown) (unknown) Emergency Report (units (unknown) date) unknown) (unknown) (no (unknown) (unknown) Endorses lower (units (unknown) date) abdominal pain. unknown) (unknown) (no (unknown) (unknown) Eos # (Auto) (units (u nknown) date) (0-450) /uL unknown) (unknown) (no (unknown) (unknown) Eos # (Auto) 100 (units (unknown) date) (0-450) /uL unknown) (unknown) (no (unknown) (unknown) Eos % (Auto) (units (u nknown) date) (2-4) % unknown) (unknown) (no (unknown) (unknown) Eos % (Auto) 1.0 (units (unknown) date) L (2-4) % unknown) (unknown) (no (unknown) (unknown) Esterase (units (unkno wn) date) unknown) (unknown) (no (unknown) (unknown) Estimated GFR > (units (unknown) date) 60 (>60) mL/min unknown) (unknown) (no (unknown) (unknown) Estimated GFR (units ( unknown) date) (>60) mL/min unknown) (unknown) (no (unknown) (unknown) Exam Narrative: (units (unknown) date) unknown) (unknown) (no (unknown) (unknown) Exam (units (unkno wn) date) unknown) (unknown) (no (unknown) (unknown) FINDINGS:? (units (unk nown) date) unknown) (unknown) (no (unknown) (unknown) GASTROINTESTINAL: (units (unknown) date) Abdomen soft, mild unknown) left-sided tenderness, nondistended without (unknown) (no (unknown) (unknown) GASTROINTESTINAL: (units (unknown) date) Denies current unknown) nausea, vomiting, diarrhea, constipation. (unknown) (no (unknown) (unknown) GENERAL: Denies (units (unknown) date) fatigue, fever, unknown) sweats. Endorses chills. (unknown) (no (unknown) (unknown) GENERAL: This is a (units (unknown) date) well-nourished, unknown) well-developed patient, in no acute distress. (unknown) (no (unknown) (unknown) : Denies (units (unk nown) date) dysuria, unknown) frequency, incontinence, hematuria, urinary retention, (unknown) (no (unknown) (unknown) General (units (unkno wn) date) unknown) (unknown) (no (unknown) (unknown) Glucose (70-100) (units (unknown) date) mg/dL unknown) (unknown) (no (unknown) (unknown) Glucose 97 (units (unk nown) date) (70-100) mg/dL unknown) (unknown) (no (unknown) (unknown) HEAD: Atraumatic. (units (unknown) date) Normocephalic. unknown) (unknown) (no (unknown) (unknown) HEENT: Denies (units ( unknown) date) sinus pain, ear unknown) pain, sore throat, difficulty swallowing, (unknown) (no (unknown) (unknown) HPI - Female (units (u nknown) date) Genitourinary unknown) (unknown) (no (unknown) (unknown) HPI Narrative: (units (unknown) date) unknown) (unknown) (no (unknown) (unknown) Hct (36-46) % (units ( unknown) date) unknown) (unknown) (no (unknown) (unknown) Hct 36.2 (36-46) (units (unknown) date) % unknown) (unknown) (no (unknown) (unknown) Hgb (12.0-16.0) (units (unknown) date) g/dL unknown) (unknown) (no (unknown) (unknown) Hgb 12.2 (units (unkno wn) date) (12.0-16.0) g/dL unknown) (unknown) (no (unknown) (unknown) History of (units (unk nown) date) Present Illness unknown) (unknown) (no (unknown) (unknown) IMPRESSION:? More (units (unknown) date) than 12 follicles unknown) can be seen involving each ovary, which is (unknown) (no (unknown) (unknown) INDICATIONS:? (units ( unknown) date) DUB, PAIN X 3 unknown) MONTHS (unknown) (no (unknown) (unknown) Imaging Data (units (u nknown) date) unknown) (unknown) (no (unknown) (unknown) Initial Vital (units ( unknown) date) Signs unknown) (unknown) (no (unknown) (unknown) Initial Vital (units ( unknown) date) Signs: unknown) (unknown) (no (unknown) (unknown) Instructions: (units ( unknown) date) Polycystic Ovary unknown) Syndrome (Alternative Therapy), DI for Urinary (unknown) (no (unknown) (unknown) Irregular (units (unkn own) date) menstrual cycle unknown) (unknown) (no (unknown) (unknown) [facility] (units (unknown) date) [address] unknown) [place] [address] (unknown) (no (unknown) (unknown) [facility] (units (unknown) date) unknown) (unknown) (no (unknown) (unknown) Ketorolac (units (unkn own) date) Tromethamine unknown) (Ketorolac 30 Mg/Ml Vial) 30 mg IV NOW ONE (unknown) (no (unknown) (unknown) Lab Data (units (unkno wn) date) unknown) (unknown) (no (unknown) (unknown) Lab Results (units (un known) date) unknown) (unknown) (no (unknown) (unknown) Labs: (units (unkno wn) date) unknown) (unknown) (no (unknown) (unknown) Last Admin: (units (un known) date) 08/25/22 12:52 unknown) Dose: 30 mg (unknown) (no (unknown) (unknown) Last Alcoholic (units (unknown) date) Drink: none unknown) (unknown) (no (unknown) (unknown) Loc: ED (units (unkno wn) date) unknown) (unknown) (no (unknown) (unknown) Lymph # (Auto) (units (unknown) date) (0681-1387) /uL unknown) (unknown) (no (unknown) (unknown) Lymph # (Auto) (units (unknown) date) 1200 (1446-0434) unknown) /uL (unknown) (no (unknown) (unknown) Lymph % (Auto) (units (unknown) date) (25-40) % unknown) (unknown) (no (unknown) (unknown) Lymph % (Auto) (units (unknown) date) 11.1 L (25-40) % unknown) (unknown) (no (unknown) (unknown) MCH (26-34) PG (units (unknown) date) unknown) (unknown) (no (unknown) (unknown) MCH 28.5 (26-34) (units (unknown) date) PG unknown) (unknown) (no (unknown) (unknown) MCHC (30-36) % (units (unknown) date) unknown) (unknown) (no (unknown) (unknown) MCHC 33.8 (30-36) (units (unknown) date) % unknown) (unknown) (no (unknown) (unknown) MCV (80-100) fL (units (unknown) date) unknown) (unknown) (no (unknown) (unknown) MCV 84.5 (80-100) (units (unknown) date) fL unknown) (unknown) (no (unknown) (unknown) MDM - Female (units (u nknown) date) Genitourinary unknown) (unknown) (no (unknown) (unknown) MDM Narrative (units ( unknown) date) unknown) (unknown) (no (unknown) (unknown) MR#: [id number] (units (unknown) date) unknown) (unknown) (no (unknown) (unknown) MSK: Denies (units (un known) date) weakness, joint unknown) pain, or bony pain. (unknown) (no (unknown) (unknown) MSK: Moves all (units (unknown) date) extremities. unknown) Normal range of motion, no clubbing or edema. (unknown) (no (unknown) (unknown) Medical History (units (unknown) date) (Reviewed 08/25/22 unknown) @ 13:06 by SIMON eRilly) (unknown) (no (unknown) (unknown) Medical decision (units (unknown) date) making narrative: unknown) (unknown) (no (unknown) (unknown) Medication (units (unk nown) date) Instructions unknown) Recorded (unknown) (no (unknown) (unknown) Miscellaneous,Doc (units (unknown) date) MD allen [Primary unknown) Care Provider] (unknown) (no (unknown) (unknown) Mode of arrival: (units (unknown) date) Ambulatory unknown) (unknown) (no (unknown) (unknown) [place] # (Auto) (units ( unknown) date) (0-900) /uL unknown) (unknown) (no (unknown) (unknown) [place] # (Auto) 600 (units (unknown) date) (0-900) /uL unknown) (unknown) (no (unknown) (unknown) [place] % (Auto) (units ( unknown) date) (3-14) % unknown) (unknown) (no (unknown) (unknown) [place] % (Auto) 5.7 (units (unknown) date) (3-14) % unknown) (unknown) (no (unknown) (unknown) NEURO: A+O x 3. (units (unknown) date) unknown) (unknown) (no (unknown) (unknown) NEUROLOGIC: (units (un known) date) Denies weakness, unknown) dizziness, headache, numbness, confusion. (unknown) (no (unknown) (unknown) Narrative (units (unkn own) date) unknown) (unknown) (no (unknown) (unknown) Narrative: See (units (unknown) date) HPI. unknown) (unknown) (no (unknown) (unknown) Narrative: (units (unk nown) date) unknown) (unknown) (no (unknown) (unknown) Neurovascularly (units (unknown) date) intact. Mild left unknown) lower back pain. No CVA tenderness. (unknown) (no (unknown) (unknown) Neut # (Auto) (units ( unknown) date) (6909-5960) /uL unknown) (unknown) (no (unknown) (unknown) Neut # (Auto) (units ( unknown) date) 9000 H (6845-1090) unknown) /uL (unknown) (no (unknown) (unknown) Neut % (Auto) (units ( unknown) date) (50-75) % unknown) (unknown) (no (unknown) (unknown) Neut % (Auto) (units ( unknown) date) 81.9 H (50-75) % unknown) (unknown) (no (unknown) (unknown) New (units (unkno wn) date) unknown) (unknown) (no (unknown) (unknown) No Known Drug (units ( unknown) date) Allergies Allergy unknown) Verified 05/05/22 17:52 (unknown) (no (unknown) (unknown) [place]] (units (un known) date) unknown) (unknown) (no (unknown) (unknown) Ordered: (units (unkno wn) date) unknown) (unknown) (no (unknown) (unknown) Ordering (units (unkno wn) date) Provider: unknown) Pham Mandujano D.O. (unknown) (no (unknown) (unknown) Orders (units (unkno wn) date) unknown) (unknown) (no (unknown) (unknown) Other:? No (units (unk nown) date) pathologic free unknown) abdominal or pelvic fluid. (unknown) (no (unknown) (unknown) Ovaries:? The (units (u nknown) date) right ovary unknown) measures 1.9 x 3.3 x 2.3 cm, with a calculated ovarian (unknown) (no (unknown) (unknown) Oxygen Delivery (units (unknown) date) Method 08/25/22 unknown) 10:09 (unknown) (no (unknown) (unknown) Oxygen Delivery (units (unknown) date) Method Room Air unknown) (unknown) (no (unknown) (unknown) PCOS. Patient has (units (unknown) date) not been seen her unknown) family doctor for this because she does not (unknown) (no (unknown) (unknown) PROCEDURE:? US (units (unknown) date) PELVIC COMPLETE unknown) (unknown) (no (unknown) (unknown) PSYCHIATRIC: No (units (unknown) date) concerning unknown) psychosocial issues. (unknown) (no (unknown) (unknown) Patient (units (unkno wn) date) Disposition: Home unknown) (unknown) (no (unknown) (unknown) Patient History (units (unknown) date) unknown) (unknown) (no (unknown) (unknown) Patient states (units (unknown) date) that she has been unknown) taking iron for this. Patient has a history of (unknown) (no (unknown) (unknown) Patient: (units (unkno wn) date) Elisa Monterroso unknown) MR#: [id number] (unknown) (no (unknown) (unknown) Patient: (units (unkno wn) date) Elisa Monterroso unknown) (unknown) (no (unknown) (unknown) Plt Count (units (unkn own) date) (150-400) X103/uL unknown) (unknown) (no (unknown) (unknown) Plt Count 347 (units ( unknown) date) (150-400) X103/uL unknown) (unknown) (no (unknown) (unknown) Potassium (units (unkn own) date) (3.4-5.1) mmol/L unknown) (unknown) (no (unknown) (unknown) Potassium 4.2 (units ( unknown) date) (3.4-5.1) mmol/L unknown) (unknown) (no (unknown) (unknown) Prescriptions: (units (unknown) date) unknown) (unknown) (no (unknown) (unknown) Previous Rx's (units ( unknown) date) unknown) (unknown) (no (unknown) (unknown) Procedure: US (units ( unknown) date) pelvic complete unknown) (unknown) (no (unknown) (unknown) Pulse Oximetry (units (unknown) date) 100 unknown) (unknown) (no (unknown) (unknown) Pulse Oximetry 99 (units (unknown) date) 08/25/22 10:09 unknown) (unknown) (no (unknown) (unknown) Pulse Rate 100 H (units (unknown) date) unknown) (unknown) (no (unknown) (unknown) Pulse Rate 104 H (units (unknown) date) 08/25/22 10:09 unknown) (unknown) (no (unknown) (unknown) RBC (4.0-5.2) (units ( unknown) date) X106/uL unknown) (unknown) (no (unknown) (unknown) RBC 4.29 (units (unkno wn) date) (4.0-5.2) X106/uL unknown) (unknown) (no (unknown) (unknown) RDW (11.6-14.8) % (units (unknown) date) unknown) (unknown) (no (unknown) (unknown) RDW 13.2 (units (unkno wn) date) (11.6-14.8) % unknown) (unknown) (no (unknown) (unknown) RESPIRATORY: (units (u nknown) date) Breath sounds unknown) equal and clear bilaterally. No wheezes, rales, or (unknown) (no (unknown) (unknown) RESPIRATORY: (units (u nknown) date) Denies dyspnea, unknown) cough, wheezing, sputum. (unknown) (no (unknown) (unknown) Radiologist's (units ( unknown) date) Impression: unknown) (unknown) (no (unknown) (unknown) Real-time (units (unkn own) date) scanning was unknown) performed of the pelvic organs, with image (unknown) (no (unknown) (unknown) Referrals: (units (unk nown) date) unknown) (unknown) (no (unknown) (unknown) Related Data (units (u nknown) date) unknown) (unknown) (no (unknown) (unknown) Resource line at (units (unknown) date) [phone]. They unknown) will ask some questions about your medical (unknown) (no (unknown) (unknown) Respiratory Rate (units (unknown) date) 16 unknown) (unknown) (no (unknown) (unknown) Respiratory Rate (units (unknown) date) 18 08/25/22 10:09 unknown) (unknown) (no (unknown) (unknown) Review of Systems (units (unknown) date) unknown) (unknown) (no (unknown) (unknown) Reviewed (units (unkno wn) date) unknown) (unknown) (no (unknown) (unknown) SKIN: Denies (units (u nknown) date) rash, skin unknown) lesions, or pruritis. (unknown) (no (unknown) (unknown) SKIN: Warm, dry, (units (unknown) date) no rashes or unknown) lesions noted. (unknown) (no (unknown) (unknown) Signed By: (units (unk nown) date) unknown) (unknown) (no (unknown) (unknown) Signed (units (unkno wn) date) unknown) (unknown) (no (unknown) (unknown) Sodium (137-145) (units (unknown) date) mmol/L unknown) (unknown) (no (unknown) (unknown) Sodium 140 (units (unk nown) date) (137-145) mmol/L unknown) (unknown) (no (unknown) (unknown) Source: patient (units (unknown) date) unknown) (unknown) (no (unknown) (unknown) Stand Alone (units (un known) date) Forms: Patient unknown) Portal/API (unknown) (no (unknown) (unknown) Stated complaint: (units (unknown) date) shaking; bad unknown) period trouble (unknown) (no (unknown) (unknown) Stop: 08/25/22 (units (unknown) date) 12:47 unknown) (unknown) (no (unknown) (unknown) Substance Use (units ( unknown) date) Type: marijuana unknown) (unknown) (no (unknown) (unknown) TECHNIQUE:? (units (un known) date) unknown) (unknown) (no (unknown) (unknown) Temperature 97.8 (units (unknown) date) F 08/25/22 10:09 unknown) (unknown) (no (unknown) (unknown) Time Seen by (units (u nknown) date) Provider: 08/25/22 unknown) 12:00 (unknown) (no (unknown) (unknown) To assist (units (unkn own) date) unknown) (unknown) (no (unknown) (unknown) Toradol for your (units (unknown) date) pain, please do unknown) not take anymore ibuprofen or naproxen today, (unknown) (no (unknown) (unknown) Tract Infection (units (unknown) date) (UTI) unknown) (unknown) (no (unknown) (unknown) Type and Screen (units (unknown) date) Stat unknown) (unknown) (no (unknown) (unknown) 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: (units (unkn own) date) unknown) (unknown) (no (unknown) (unknown) US pelvic (units (unkn own) date) complete Stat unknown) (unknown) (no (unknown) (unknown) UTI (urinary (units (u nknown) date) tract infection), unknown) PCOS (polycystic ovarian syndrome) (unknown) (no (unknown) (unknown) Ultrasound Report (units (unknown) date) unknown) (unknown) (no (unknown) (unknown) Ur Culture (units (unk nown) date) Indicated? unknown) Specimen cultured (unknown) (no (unknown) (unknown) Ur Culture (units (unk nown) date) Indicated? unknown) (unknown) (no (unknown) (unknown) Ur Squamous Epith (units (unknown) date) Cells (0-5/HPF) unknown) (unknown) (no (unknown) (unknown) Ur Squamous Epith (units (unknown) date) Cells 0-1 /hpf unknown) (0-5/HPF) (unknown) (no (unknown) (unknown) Urine Bacteria (units (unknown) date) (None) unknown) (unknown) (no (unknown) (unknown) Urine Bacteria (units (unknown) date) Many (>30) H unknown) (None) (unknown) (no (unknown) (unknown) Urine Culture (units ( unknown) date) Stat unknown) (unknown) (no (unknown) (unknown) Urine Dip (units (unkn own) date) unknown) (unknown) (no (unknown) (unknown) Urine Microscopic (units (unknown) date) Stat unknown) (unknown) (no (unknown) (unknown) Urine Mucus (units (un known) date) (Negative) unknown) (unknown) (no (unknown) (unknown) Urine Mucus 1+ H (units (unknown) date) (Negative) unknown) (unknown) (no (unknown) (unknown) Urine RBC (units (unkn own) date) (0-5/HPF) unknown) (unknown) (no (unknown) (unknown) Urine RBC (units (unkn own) date) 5-10/hpf H unknown) (0-5/HPF) (unknown) (no (unknown) (unknown) Urine Specific (units (unknown) date) [place] 1.025 unknown) (unknown) (no (unknown) (unknown) Urine WBC (units (unkn own) date) (0-5/HPF) unknown) (unknown) (no (unknown) (unknown) Urine WBC (units (unkn own) date) 30-100/hpf H unknown) (0-5/HPF) (unknown) (no (unknown) (unknown) Uterus:? Uterus (units (unknown) date) is anteverted and unknown) normal in size at 8 x 3.3 x 4.8 cm. The (unknown) (no (unknown) (unknown) Vital Signs - 8 (units (unknown) date) hr unknown) (unknown) (no (unknown) (unknown) Vital Signs (units (un known) date) unknown) (unknown) (no (unknown) (unknown) Vital signs: (units (u nknown) date) unknown) (unknown) (no (unknown) (unknown) WBC (4.5-11.0) (units (unknown) date) X103/uL unknown) (unknown) (no (unknown) (unknown) WBC 11.0 (units (unkno wn) date) (4.5-11.0) X103/uL unknown) (unknown) (no (unknown) (unknown) We strive to (units (u nknown) date) produce accurate, unknown) complete, and clear reports of imaging services. (unknown) (no (unknown) (unknown) [ ] New (units (unkno wn) date) medication written unknown) as a paper prescription (unknown) (no (unknown) (unknown) [ ] No new (units (unk nown) date) medications given unknown) (unknown) (no (unknown) (unknown) [Embedded Image (units (unknown) date) Not Available] unknown) (unknown) (no (unknown) (unknown) [x ] New (units (unkno wn) date) medication unknown) prescriptions sent to your pharmacy: [facility] in (unknown) (no (unknown) (unknown) adnexal and (units (un known) date) endometrial unknown) structures by transabdominal scanning.? (unknown) (no (unknown) (unknown) alcohol intake (units (unknown) date) frequency: other unknown) (unknown) (no (unknown) (unknown) along the (units (unkn own) date) unknown) (unknown) (no (unknown) (unknown) and OBGYN, (units (unk nown) date) preferably who unknown) specializes in PCOS. For any worsening symptoms, (unknown) (no (unknown) (unknown) and a pad (units (unkn own) date) multiple times per unknown) day, sometimes as frequently as every hour. (unknown) (no (unknown) (unknown) and nitrates. (units ( unknown) date) Will treat with unknown) cephalexin, as patient states that this has (unknown) (no (unknown) (unknown) and voice (units (unkn own) date) recognition unknown) software. Therefore, it may contain abnormal punctuation, (unknown) (no (unknown) (unknown) appointment. Let (units (unknown) date) them know you were unknown) seen in the Emergency Department and that we (unknown) (no (unknown) (unknown) ask that you be (units (unknown) date) seen in follow up. unknown) We will electronically transmit a record of (unknown) (no (unknown) (unknown) bleeding x3 (units (un known) date) months. Patient unknown) states that she has been soaking through a tampon (unknown) (no (unknown) (unknown) breathing, fever (units (unknown) date) greater than 101 unknown) F, shaking chills, persistent vomiting to the (unknown) (no (unknown) (unknown) but consistent (units (unknown) date) with PCOS. Vaginal unknown) ultrasound reveals 12 follicles on each (unknown) (no (unknown) (unknown) but may restart (units (unknown) date) tomorrow. Will unknown) prescribe an antibiotic for urinary tract (unknown) (no (unknown) (unknown) cephalexin 500 mg (units (unknown) date) capsule 1,000 mg unknown) PO BID uti 7 days #28 caps 08/25/22 (unknown) (no (unknown) (unknown) cephalexin 500 mg (units (unknown) date) capsule unknown) (unknown) (no (unknown) (unknown) consistent (units (unk nown) date) unknown) (unknown) (no (unknown) (unknown) demonstrates a (units (unknown) date) heterogeneous unknown) appearance.? No abnormal vascularity can be seen (unknown) (no (unknown) (unknown) dizziness. (units (unk nown) date) unknown) (unknown) (no (unknown) (unknown) documentation.? (units (unknown) date) unknown) (unknown) (no (unknown) (unknown) emergency (units (unkn own) date) department. unknown) (unknown) (no (unknown) (unknown) endometrial (units (un known) date) stripe. unknown) (unknown) (no (unknown) (unknown) endometrium (units (un known) date) unknown) (unknown) (no (unknown) (unknown) family doctor and (units (unknown) date) explains how much unknown) pain she is in, is told to go to the (unknown) (no (unknown) (unknown) flank pain.. (units (u nknown) date) Endorses increased unknown) vaginal bleeding. (unknown) (no (unknown) (unknown) follicles can be (units (unknown) date) unknown) (unknown) (no (unknown) (unknown) guarding or (units (un known) date) rebound. No unknown) suprapubic pain. (unknown) (no (unknown) (unknown) history and help (units (unknown) date) get you set up unknown) with a doctor in the community. (unknown) (no (unknown) (unknown) homogeneous. ? (units (unknown) date) The endometrium unknown) measures 7 mm combined thickness.? The (unknown) (no (unknown) (unknown) inaccuracies. (units ( unknown) date) unknown) (unknown) (no (unknown) (unknown) increased vaginal (units (unknown) date) bleeding and lower unknown) abdominal pain. Assessment was encouraging (unknown) (no (unknown) (unknown) infection. Please (units (unknown) date) contact the number unknown) below in order to obtain a family doctor (unknown) (no (unknown) (unknown) insertions and/or (units (unknown) date) omissions. unknown) Occasional wrong-word or sound-alike substitutions (unknown) (no (unknown) (unknown) intact, cap (units (un known) date) refill <2 sec. unknown) (unknown) (no (unknown) (unknown) like them. (units (unk nown) date) Patient's mother, unknown) a nurse, states that every time she contacts that (unknown) (no (unknown) (unknown) lower back and (units (unknown) date) abdominal pain x1 unknown) month and increased and persistent vaginal (unknown) (no (unknown) (unknown) may (units (unkno wn) date) unknown) (unknown) (no (unknown) (unknown) myometrium is (units ( unknown) date) unknown) (unknown) (no (unknown) (unknown) occur. Though we (units (unknown) date) review the report unknown) and make efforts to correct it, we do (unknown) (no (unknown) (unknown) of 7.4 cc. The (units (unknown) date) left ovary unknown) measures 3 x 2.6 x 2.5 cm, with a calculated ovarian (unknown) (no (unknown) (unknown) ovary, consistent (units (unknown) date) with PCOS. Patient unknown) was given a single dose of Toradol for her (unknown) (no (unknown) (unknown) pain. Point of (units (unknown) date) care urine dip was unknown) consistent with UTI, positive blood, leuks (unknown) (no (unknown) (unknown) please return to (units (unknown) date) the emergency unknown) department. (unknown) (no (unknown) (unknown) point that you (units (unknown) date) cannot drink unknown) fluids, or other new or worsening symptoms. (unknown) (no (unknown) (unknown) recommend that (units (unknown) date) unknown) (unknown) (no (unknown) (unknown) rhonchi. No (units (un known) date) cough. No unknown) increased respiratory effort. No accessory muscle use. (unknown) (no (unknown) (unknown) seen in each (units (u nknown) date) ovary.? No adnexal unknown) masses are seen. (unknown) (no (unknown) (unknown) such as worsening (units (unknown) date) pain, severe unknown) headache, confusion, chest pain, difficulty (unknown) (no (unknown) (unknown) templates (units (unkn own) date) unknown) (unknown) (no (unknown) (unknown) the report be (units ( unknown) date) read carefully in unknown) proper context to recognize any text (unknown) (no (unknown) (unknown) the (units (unkno wn) date) unknown) (unknown) (no (unknown) (unknown) to investigate (units (unknown) date) obtaining a family unknown) doctor and OBGYN that specializes in PCOS. (unknown) (no (unknown) (unknown) tobacco type: (units ( unknown) date) vaping unknown) (unknown) (no (unknown) (unknown) today's note if (units (unknown) date) your PCP is in our unknown) system (unknown) (no (unknown) (unknown) us in improving (units (unknown) date) patient care, this unknown) report was composed using standard report (unknown) (no (unknown) (unknown) verbalized (units (unk nown) date) understanding and unknown) were agreeable course of action. (unknown) (no (unknown) (unknown) volume of (units (unkn own) date) unknown) (unknown) (no (unknown) (unknown) volume (units (unkno wn) date) unknown) (unknown) (no (unknown) (unknown) with polycystic (units (unknown) date) ovarian syndrome.? unknown) (unknown) (no (unknown) (unknown) worked well for (units (unknown) date) her in the past. unknown) Provided a phone number for patient and mother Result panel 110 (unknown) (no (unknown) (unknown) (no value) (units (unk nown) date) unknown) (unknown) (no (unknown) (unknown) <Electronically (units (unknown) date) signed by Calixto unknown) SIMON Chase> (unknown) (no (unknown) (unknown) <Electronically (units (unknown) date) signed by Pham [place]cal[place] unknown) Delbert D.O.> (unknown) (no (unknown) (unknown) <Electronically (units (unknown) date) signed by Pham [place] unknown) Mary MandujanoOMaritza> (unknown) (no (unknown) (unknown) <Calixto Chase, (units (unknown) date) ALUMINUM SHINGLE ROOFER - Last Filed: unknown) 08/25/22 13:12> (unknown) (no (unknown) (unknown) <Pham Mandujano, (units (unknown) date) DO - Last Filed: unknown) 08/25/22 18:54> (unknown) (no (unknown) (unknown) <cosigner> (units (unk nown) date) unknown) (unknown) (no (unknown) (unknown) (PCOS) (units (unkno wn) date) unknown) (unknown) (no (unknown) (unknown) *If you do not (units (unknown) date) have a primary unknown) care provider please contact the [facility] (unknown) (no (unknown) (unknown) *Please continue (units (unknown) date) to take your unknown) regular medications as directed. (unknown) (no (unknown) (unknown) *Please follow up (units (unknown) date) with your primary unknown) care provider in 2-3 days, call for an (unknown) (no (unknown) (unknown) *What to do: (units (u nknown) date) unknown) (unknown) (no (unknown) (unknown) *You have been (units (unknown) date) diagnosed with unknown) PCOS and a UTI. We have given you a injection of (unknown) (no (unknown) (unknown) 08/25/22 08/25/22 (units (unknown) date) 08/25/22 unknown) Range/Units (unknown) (no (unknown) (unknown) 08/25/22 10:13 (units (unknown) date) unknown) (unknown) (no (unknown) (unknown) 08/25/22 10:14 (units (unknown) date) unknown) (unknown) (no (unknown) (unknown) 08/25/22 12:30 (units (unknown) date) unknown) (unknown) (no (unknown) (unknown) 08/25/22 1312 (units ( unknown) date) unknown) (unknown) (no (unknown) (unknown) 08/25/22 1854 (units ( unknown) date) unknown) (unknown) (no (unknown) (unknown) 08/25/22 (units (unkno wn) date) Range/Units unknown) (unknown) (no (unknown) (unknown) 08/25/22 (units (unkno wn) date) unknown) (unknown) (no (unknown) (unknown) [id number] (units (unkno wn) date) unknown) (unknown) (no (unknown) (unknown) 1,000 mg PO BID 7 (units (unknown) date) Days Qty: 28 0RF unknown) (unknown) (no (unknown) (unknown) 10.4 cc. The (units (u nknown) date) ovaries have a unknown) normal sonographic appearance.? More than 12 (unknown) (no (unknown) (unknown) 10:13 10:13 10:13 (units (unknown) date) unknown) (unknown) (no (unknown) (unknown) [address] [place] [address] (units (unknown) date) unknown) (unknown) (no (unknown) (unknown) 12:30 (units (unkno wn) date) unknown) (unknown) (no (unknown) (unknown) 12:41 (units (unkno wn) date) unknown) (unknown) (no (unknown) (unknown) 22-year-old (units (un known) date) female, daily unknown) smoker, presents to the emergency department with (unknown) (no (unknown) (unknown) 22-year-old (units (un known) date) female, with unknown) history of PCOS, presents to the walk-in clinic with (unknown) (no (unknown) (unknown) ? Return to ER if (units (unknown) date) you should have unknown) any new, worsening or concerning symptoms, (unknown) (no (unknown) (unknown) ? (units (unkno wn) date) unknown) (unknown) (no (unknown) (unknown) ?? (units (unkno wn) date) unknown) (unknown) (no (unknown) (unknown) Accession Number: (units (unknown) date) [id number] ?? unknown) (unknown) (no (unknown) (unknown) Acct:[id number] (units (unknown) date) unknown) (unknown) (no (unknown) (unknown) Activity (units (unkno wn) date) Restrictions/Addit unknown) ional Instructions: (unknown) (no (unknown) (unknown) Additional (units (unkn own) date) endovaginal unknown) scanning was necessary due to incomplete visualization of (unknown) (no (unknown) (unknown) Age/Sex: 22 / F (units (unknown) date) unknown) (unknown) (no (unknown) (unknown) Allergies (units (unkn own) date) unknown) (unknown) (no (unknown) (unknown) Allergy/AdvReac (units (unknown) date) Type Severity unknown) Reaction Status Date / Time (unknown) (no (unknown) (unknown) Amorphous (units (unkn own) date) Sediment 1 unknown) (unknown) (no (unknown) (unknown) Amorphous (units (unkn own) date) Sediment unknown) (unknown) (no (unknown) (unknown) AYO Steven (units ( unknown) date) [id number] unknown) (unknown) (no (unknown) (unknown) Antibody Screen (units (unknown) date) Negative unknown) (unknown) (no (unknown) (unknown) Antibody Screen (units (unknown) date) unknown) (unknown) (no (unknown) (unknown) Approved by: (units (u nknown) date) meredith Black M.D. on 08/25/2022 at 10:55 ? (unknown) (no (unknown) (unknown) BUN (7-17) mg/dL (units (unknown) date) unknown) (unknown) (no (unknown) (unknown) BUN 11 (7-17) (units ( unknown) date) mg/dL unknown) (unknown) (no (unknown) (unknown) BUN/Creatinine (units (unknown) date) Ratio (6-22) unknown) (unknown) (no (unknown) (unknown) BUN/Creatinine (units (unknown) date) Ratio 17.7 (6-22) unknown) (unknown) (no (unknown) (unknown) Basic Metabolic (units (unknown) date) Panel Stat unknown) (unknown) (no (unknown) (unknown) Baso # (Auto) (units ( unknown) date) (0-100) /uL unknown) (unknown) (no (unknown) (unknown) Baso # (Auto) 0 (units (unknown) date) (0-100) /uL unknown) (unknown) (no (unknown) (unknown) Baso % (Auto) (units ( unknown) date) (0-2) % unknown) (unknown) (no (unknown) (unknown) Baso % (Auto) 0.3 (units (unknown) date) (0-2) % unknown) (unknown) (no (unknown) (unknown) Bedside Urine (units ( unknown) date) Bilirubin - unknown) Negative (unknown) (no (unknown) (unknown) Bedside Urine (units ( unknown) date) Glucose Negative unknown) (unknown) (no (unknown) (unknown) Bedside Urine (units ( unknown) date) Ketone - Negative unknown) (unknown) (no (unknown) (unknown) Bedside Urine (units ( unknown) date) Leukocytes ++ 125 unknown) (unknown) (no (unknown) (unknown) Bedside Urine (units ( unknown) date) Nitrite + Positive unknown) (unknown) (no (unknown) (unknown) Bedside Urine (units ( unknown) date) Occult Blood unknown) (unknown) (no (unknown) (unknown) Bedside Urine (units ( unknown) date) Protein ++ 100 unknown) (unknown) (no (unknown) (unknown) Bedside Urine (units ( unknown) date) Urobilinogen - unknown) Negative (unknown) (no (unknown) (unknown) Bedside Urine pH (units (unknown) date) 6.0 unknown) (unknown) (no (unknown) (unknown) Blood Pressure (units (unknown) date) 128/78 08/25/22 unknown) 10:09 (unknown) (no (unknown) (unknown) Blood Pressure (units (unknown) date) 131/60 unknown) (unknown) (no (unknown) (unknown) Blood Type O (units (u nknown) date) Negative unknown) (unknown) (no (unknown) (unknown) Blood Type (units (unk nown) date) unknown) (unknown) (no (unknown) (unknown) CARDIOVASCULAR: (units (unknown) date) Denies chest pain, unknown) palpitations, edema. (unknown) (no (unknown) (unknown) CARDIOVASCULAR: (units (unknown) date) Regular rate and unknown) rhythm without murmurs, peripheral pulses (unknown) (no (unknown) (unknown) COMPARISON:? (units (u nknown) date) [facility], unknown) US, US PELVIC COMPLETE, 08/16/2020, 8:45. (unknown) (no (unknown) (unknown) Calcium (units (unkno wn) date) (8.4-10.2) mg/dL unknown) (unknown) (no (unknown) (unknown) Calcium 9.1 (units (un known) date) (8.4-10.2) mg/dL unknown) (unknown) (no (unknown) (unknown) Carbon Dioxide (units (unknown) date) (22-32) mmol/L unknown) (unknown) (no (unknown) (unknown) Carbon Dioxide 26 (units (unknown) date) (22-32) mmol/L unknown) (unknown) (no (unknown) (unknown) Chief complaint: (units (unknown) date) Vaginal Bleeding unknown) (unknown) (no (unknown) (unknown) Chloride (98-107) (units (unknown) date) mmol/L unknown) (unknown) (no (unknown) (unknown) Chloride 102 (units (u nknown) date) (98-107) mmol/L unknown) (unknown) (no (unknown) (unknown) Clinical (units (unkno wn) date) Impression: unknown) (unknown) (no (unknown) (unknown) Complete Blood (units (unknown) date) Count AUTO DIFF unknown) Stat (unknown) (no (unknown) (unknown) Cosign (units (unkno wn) date) unknown) (unknown) (no (unknown) (unknown) Course (units (unkno wn) date) unknown) (unknown) (no (unknown) (unknown) Creatinine (units (unk nown) date) (0.52-1.04) mg/dL unknown) (unknown) (no (unknown) (unknown) Creatinine 0.62 (units (unknown) date) (0.52-1.04) mg/dL unknown) (unknown) (no (unknown) (unknown) : 2000 (units (unknown) date) Acct:[id number] unknown) (unknown) (no (unknown) (unknown) : 2000 (units (unknown) date) unknown) (unknown) (no (unknown) (unknown) Date of Service: (units (unknown) date) 08/25/22 unknown) (unknown) (no (unknown) (unknown) Departure (units (unkn own) date) unknown) (unknown) (no (unknown) (unknown) Dictated by: (units (u nknown) date) meredith Black M.D. on 08/25/2022 at 10:54 ? ? (unknown) (no (unknown) (unknown) Differential (units (u nknown) date) Diagnosis unknown) (unknown) (no (unknown) (unknown) Differential (units (u nknown) date) diagnosis: Likely unknown) urinary tract infection, dysmenorrhea and other (unknown) (no (unknown) (unknown) Discharge Plan (units (unknown) date) unknown) (unknown) (no (unknown) (unknown) Discontinued (units (u nknown) date) Medications unknown) (unknown) (no (unknown) (unknown) Discussed plan of (units (unknown) date) care and return unknown) precautions with patient and mother, (unknown) (no (unknown) (unknown) Documented By: NR (units (unknown) date) unknown) (unknown) (no (unknown) (unknown) ED Attending (units (u nknown) date) Cosignature unknown) Attestation: (unknown) (no (unknown) (unknown) ED Orders (units (unkn own) date) unknown) (unknown) (no (unknown) (unknown) ER Physician: (units ( unknown) date) Chase,Calixto ALUMINUM SHINGLE ROOFER unknown) (unknown) (no (unknown) (unknown) Emergency Report (units (unknown) date) unknown) (unknown) (no (unknown) (unknown) Endorses lower (units (unknown) date) abdominal pain. unknown) (unknown) (no (unknown) (unknown) Eos # (Auto) (units (u nknown) date) (0-450) /uL unknown) (unknown) (no (unknown) (unknown) Eos # (Auto) 100 (units (unknown) date) (0-450) /uL unknown) (unknown) (no (unknown) (unknown) Eos % (Auto) (units (u nknown) date) (2-4) % unknown) (unknown) (no (unknown) (unknown) Eos % (Auto) 1.0 (units (unknown) date) L (2-4) % unknown) (unknown) (no (unknown) (unknown) Esterase (units (unkno wn) date) unknown) (unknown) (no (unknown) (unknown) Estimated GFR > (units (unknown) date) 60 (>60) mL/min unknown) (unknown) (no (unknown) (unknown) Estimated GFR (units ( unknown) date) (>60) mL/min unknown) (unknown) (no (unknown) (unknown) Exam Narrative: (units (unknown) date) unknown) (unknown) (no (unknown) (unknown) Exam (units (unkno wn) date) unknown) (unknown) (no (unknown) (unknown) FINDINGS:? (units (unk nown) date) unknown) (unknown) (no (unknown) (unknown) GASTROINTESTINAL: (units (unknown) date) Abdomen soft, mild unknown) left-sided tenderness, nondistended without (unknown) (no (unknown) (unknown) GASTROINTESTINAL: (units (unknown) date) Denies current unknown) nausea, vomiting, diarrhea, constipation. (unknown) (no (unknown) (unknown) GENERAL: Denies (units (unknown) date) fatigue, fever, unknown) sweats. Endorses chills. (unknown) (no (unknown) (unknown) GENERAL: This is a (units (unknown) date) well-nourished, unknown) well-developed patient, in no acute distress. (unknown) (no (unknown) (unknown) : Denies (units (unk nown) date) dysuria, unknown) frequency, incontinence, hematuria, urinary retention, (unknown) (no (unknown) (unknown) General (units (unkno wn) date) unknown) (unknown) (no (unknown) (unknown) Glucose (70-100) (units (unknown) date) mg/dL unknown) (unknown) (no (unknown) (unknown) Glucose 97 (units (unk nown) date) (70-100) mg/dL unknown) (unknown) (no (unknown) (unknown) HEAD: Atraumatic. (units (unknown) date) Normocephalic. unknown) (unknown) (no (unknown) (unknown) HEENT: Denies (units ( unknown) date) sinus pain, ear unknown) pain, sore throat, difficulty swallowing, (unknown) (no (unknown) (unknown) HPI - Female (units (u nknown) date) Genitourinary unknown) (unknown) (no (unknown) (unknown) HPI Narrative: (units (unknown) date) unknown) (unknown) (no (unknown) (unknown) Hct (36-46) % (units ( unknown) date) unknown) (unknown) (no (unknown) (unknown) Hct 36.2 (36-46) (units (unknown) date) % unknown) (unknown) (no (unknown) (unknown) Hgb (12.0-16.0) (units (unknown) date) g/dL unknown) (unknown) (no (unknown) (unknown) Hgb 12.2 (units (unkno wn) date) (12.0-16.0) g/dL unknown) (unknown) (no (unknown) (unknown) History of (units (unk nown) date) Present Illness unknown) (unknown) (no (unknown) (unknown) I was immediately (units (unknown) date) available in the unknown) department for consultation. Documentation (unknown) (no (unknown) (unknown) IMPRESSION:? More (units (unknown) date) than 12 follicles unknown) can be seen involving each ovary, which is (unknown) (no (unknown) (unknown) INDICATIONS:? (units ( unknown) date) DUB, PAIN X 3 unknown) MONTHS (unknown) (no (unknown) (unknown) Imaging Data (units (u nknown) date) unknown) (unknown) (no (unknown) (unknown) Initial Vital (units ( unknown) date) Signs unknown) (unknown) (no (unknown) (unknown) Initial Vital (units ( unknown) date) Signs: unknown) (unknown) (no (unknown) (unknown) Irregular (units (unkn own) date) menstrual cycle unknown) (unknown) (no (unknown) (unknown) [facility] (units (unknown) date) [address] unknown) [place] [address] (unknown) (no (unknown) (unknown) [facility] (units (unknown) date) unknown) (unknown) (no (unknown) (unknown) Ketorolac (units (unkn own) date) Tromethamine unknown) (Ketorolac 30 Mg/Ml Vial) 30 mg IV NOW ONE (unknown) (no (unknown) (unknown) Lab Data (units (unkno wn) date) unknown) (unknown) (no (unknown) (unknown) Lab Results (units (un known) date) unknown) (unknown) (no (unknown) (unknown) Labs: (units (unkno wn) date) unknown) (unknown) (no (unknown) (unknown) Last Admin: (units (un known) date) 08/25/22 12:52 unknown) Dose: 30 mg (unknown) (no (unknown) (unknown) Last Alcoholic (units (unknown) date) Drink: none unknown) (unknown) (no (unknown) (unknown) Loc: ED (units (unkno wn) date) unknown) (unknown) (no (unknown) (unknown) Lymph # (Auto) (units (unknown) date) (5970-7299) /uL unknown) (unknown) (no (unknown) (unknown) Lymph # (Auto) (units (unknown) date) 1200 (6104-7906) unknown) /uL (unknown) (no (unknown) (unknown) Lymph % (Auto) (units (unknown) date) (25-40) % unknown) (unknown) (no (unknown) (unknown) Lymph % (Auto) (units (unknown) date) 11.1 L (25-40) % unknown) (unknown) (no (unknown) (unknown) MCH (26-34) PG (units (unknown) date) unknown) (unknown) (no (unknown) (unknown) MCH 28.5 (26-34) (units (unknown) date) PG unknown) (unknown) (no (unknown) (unknown) MCHC (30-36) % (units (unknown) date) unknown) (unknown) (no (unknown) (unknown) MCHC 33.8 (30-36) (units (unknown) date) % unknown) (unknown) (no (unknown) (unknown) MCV (80-100) fL (units (unknown) date) unknown) (unknown) (no (unknown) (unknown) MCV 84.5 (80-100) (units (unknown) date) fL unknown) (unknown) (no (unknown) (unknown) MDM - Female (units (u nknown) date) Genitourinary unknown) (unknown) (no (unknown) (unknown) MDM Narrative (units ( unknown) date) unknown) (unknown) (no (unknown) (unknown) MR#: [id number] (units (unknown) date) unknown) (unknown) (no (unknown) (unknown) MSK: Denies (units (un known) date) weakness, joint unknown) pain, or bony pain. (unknown) (no (unknown) (unknown) MSK: Moves all (units (unknown) date) extremities. unknown) Normal range of motion, no clubbing or edema. (unknown) (no (unknown) (unknown) Medical History (units (unknown) date) (Reviewed 08/25/22 unknown) @ 13:06 by SIMON Reilly) (unknown) (no (unknown) (unknown) Medical decision (units (unknown) date) making narrative: unknown) (unknown) (no (unknown) (unknown) Medication (units (unk nown) date) Instructions unknown) Recorded (unknown) (no (unknown) (unknown) Miscellaneous,Doc (units (unknown) date) MD allen [Primary unknown) Care Provider] (unknown) (no (unknown) (unknown) Mode of arrival: (units (unknown) date) Ambulatory unknown) (unknown) (no (unknown) (unknown) [place] # (Auto) (units ( unknown) date) (0-900) /uL unknown) (unknown) (no (unknown) (unknown) [place] # (Auto) 600 (units (unknown) date) (0-900) /uL unknown) (unknown) (no (unknown) (unknown) [place] % (Auto) (units ( unknown) date) (3-14) % unknown) (unknown) (no (unknown) (unknown) [place] % (Auto) 5.7 (units (unknown) date) (3-14) % unknown) (unknown) (no (unknown) (unknown) NEURO: A+O x 3. (units (unknown) date) unknown) (unknown) (no (unknown) (unknown) NEUROLOGIC: (units (un known) date) Denies weakness, unknown) dizziness, headache, numbness, confusion. (unknown) (no (unknown) (unknown) Narrative (units (unkn own) date) unknown) (unknown) (no (unknown) (unknown) Narrative: See (units (unknown) date) HPI. unknown) (unknown) (no (unknown) (unknown) Narrative: (units (unk nown) date) unknown) (unknown) (no (unknown) (unknown) Neurovascularly (units (unknown) date) intact. Mild left unknown) lower back pain. No CVA tenderness. (unknown) (no (unknown) (unknown) Neut # (Auto) (units ( unknown) date) (6633-3921) /uL unknown) (unknown) (no (unknown) (unknown) Neut # (Auto) (units ( unknown) date) 9000 H (0614-9576) unknown) /uL (unknown) (no (unknown) (unknown) Neut % (Auto) (units ( unknown) date) (50-75) % unknown) (unknown) (no (unknown) (unknown) Neut % (Auto) (units ( unknown) date) 81.9 H (50-75) % unknown) (unknown) (no (unknown) (unknown) New (units (unkno wn) date) unknown) (unknown) (no (unknown) (unknown) No Known Drug (units ( unknown) date) Allergies Allergy unknown) Verified 05/05/22 17:52 (unknown) (no (unknown) (unknown) [place]] (units (un known) date) unknown) (unknown) (no (unknown) (unknown) Ordered: (units (unkno wn) date) unknown) (unknown) (no (unknown) (unknown) Ordering (units (unkno wn) date) Provider: unknown) Pham Mandujano D.O. (unknown) (no (unknown) (unknown) Orders (units (unkno wn) date) unknown) (unknown) (no (unknown) (unknown) Other:? No (units (unk nown) date) pathologic free unknown) abdominal or pelvic fluid. (unknown) (no (unknown) (unknown) Ovaries:? The (units (u nknown) date) right ovary unknown) measures 1.9 x 3.3 x 2.3 cm, with a calculated ovarian (unknown) (no (unknown) (unknown) Oxygen Delivery (units (unknown) date) Method 08/25/22 unknown) 10:09 (unknown) (no (unknown) (unknown) Oxygen Delivery (units (unknown) date) Method Room Air unknown) (unknown) (no (unknown) (unknown) PCOS. Patient has (units (unknown) date) not been seen her unknown) family doctor for this because she does not (unknown) (no (unknown) (unknown) PROCEDURE:? US (units (unknown) date) PELVIC COMPLETE unknown) (unknown) (no (unknown) (unknown) PSYCHIATRIC: No (units (unknown) date) concerning unknown) psychosocial issues. (unknown) (no (unknown) (unknown) Patient (units (unkno wn) date) Disposition: Home unknown) (unknown) (no (unknown) (unknown) Patient History (units (unknown) date) unknown) (unknown) (no (unknown) (unknown) Patient states (units (unknown) date) that she has been unknown) taking iron for this. Patient has a history of (unknown) (no (unknown) (unknown) Patient: (units (unkno wn) date) Elisa Monterroso unknown) MR#: [id number] (unknown) (no (unknown) (unknown) Patient: (units (unkno wn) date) Elisa Monterroso unknown) (unknown) (no (unknown) (unknown) Plt Count (units (unkn own) date) (150-400) X103/uL unknown) (unknown) (no (unknown) (unknown) Plt Count 347 (units ( unknown) date) (150-400) X103/uL unknown) (unknown) (no (unknown) (unknown) Potassium (units (unkn own) date) (3.4-5.1) mmol/L unknown) (unknown) (no (unknown) (unknown) Potassium 4.2 (units ( unknown) date) (3.4-5.1) mmol/L unknown) (unknown) (no (unknown) (unknown) Prescriptions: (units (unknown) date) unknown) (unknown) (no (unknown) (unknown) Previous Rx's (units ( unknown) date) unknown) (unknown) (no (unknown) (unknown) Procedure: US (units ( unknown) date) pelvic complete unknown) (unknown) (no (unknown) (unknown) Pulse Oximetry (units (unknown) date) 100 unknown) (unknown) (no (unknown) (unknown) Pulse Oximetry 99 (units (unknown) date) 08/25/22 10:09 unknown) (unknown) (no (unknown) (unknown) Pulse Rate 100 H (units (unknown) date) unknown) (unknown) (no (unknown) (unknown) Pulse Rate 104 H (units (unknown) date) 08/25/22 10:09 unknown) (unknown) (no (unknown) (unknown) RBC (4.0-5.2) (units ( unknown) date) X106/uL unknown) (unknown) (no (unknown) (unknown) RBC 4.29 (units (unkno wn) date) (4.0-5.2) X106/uL unknown) (unknown) (no (unknown) (unknown) RDW (11.6-14.8) % (units (unknown) date) unknown) (unknown) (no (unknown) (unknown) RDW 13.2 (units (unkno wn) date) (11.6-14.8) % unknown) (unknown) (no (unknown) (unknown) RESPIRATORY: (units (u nknown) date) Breath sounds unknown) equal and clear bilaterally. No wheezes, rales, or (unknown) (no (unknown) (unknown) RESPIRATORY: (units (u nknown) date) Denies dyspnea, unknown) cough, wheezing, sputum. (unknown) (no (unknown) (unknown) Radiologist's (units ( unknown) date) Impression: unknown) (unknown) (no (unknown) (unknown) Real-time (units (unkn own) date) scanning was unknown) performed of the pelvic organs, with image (unknown) (no (unknown) (unknown) Referrals: (units (unk nown) date) unknown) (unknown) (no (unknown) (unknown) Related Data (units (u nknown) date) unknown) (unknown) (no (unknown) (unknown) Resource line at (units (unknown) date) [phone]. They unknown) will ask some questions about your medical (unknown) (no (unknown) (unknown) Respiratory Rate (units (unknown) date) 16 unknown) (unknown) (no (unknown) (unknown) Respiratory Rate (units (unknown) date) 18 08/25/22 10:09 unknown) (unknown) (no (unknown) (unknown) Review of Systems (units (unknown) date) unknown) (unknown) (no (unknown) (unknown) Reviewed (units (unkno wn) date) unknown) (unknown) (no (unknown) (unknown) SKIN: Denies (units (u nknown) date) rash, skin unknown) lesions, or pruritis. (unknown) (no (unknown) (unknown) SKIN: Warm, dry, (units (unknown) date) no rashes or unknown) lesions noted. (unknown) (no (unknown) (unknown) Signed By: (units (unk nown) date) unknown) (unknown) (no (unknown) (unknown) Signed (units (unkno wn) date) unknown) (unknown) (no (unknown) (unknown) Sodium (137-145) (units (unknown) date) mmol/L unknown) (unknown) (no (unknown) (unknown) Sodium 140 (units (unk nown) date) (137-145) mmol/L unknown) (unknown) (no (unknown) (unknown) Source: patient (units (unknown) date) unknown) (unknown) (no (unknown) (unknown) Stand Alone (units (un known) date) Forms: Patient unknown) Portal/API (unknown) (no (unknown) (unknown) Stated complaint: (units (unknown) date) shaking; bad unknown) period trouble (unknown) (no (unknown) (unknown) Stop: 08/25/22 (units (unknown) date) 12:47 unknown) (unknown) (no (unknown) (unknown) Substance Use (units ( unknown) date) Type: marijuana unknown) (unknown) (no (unknown) (unknown) TECHNIQUE:? 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 unknown) Specimen cultured (unknown) (no (unknown) (unknown) Ur Culture (units (unk nown) date) Indicated? unknown) (unknown) (no (unknown) (unknown) Ur Squamous Epith (units (unknown) date) Cells (0-5/HPF) unknown) (unknown) (no (unknown) (unknown) Ur Squamous Epith (units (unknown) date) Cells 0-1 /hpf unknown) (0-5/HPF) (unknown) (no (unknown) (unknown) Urine Bacteria (units (unknown) date) (None) unknown) (unknown) (no (unknown) (unknown) Urine Bacteria (units (unknown) date) Many (>30) H unknown) (None) (unknown) (no (unknown) (unknown) Urine Culture (units ( unknown) date) Stat unknown) (unknown) (no (unknown) (unknown) Urine Dip (units (unkn own) date) unknown) (unknown) (no (unknown) (unknown) Urine Microscopic (units (unknown) date) Stat unknown) (unknown) (no (unknown) (unknown) Urine Mucus (units (un known) date) (Negative) unknown) (unknown) (no (unknown) (unknown) Urine Mucus 1+ H (units (unknown) date) (Negative) unknown) (unknown) (no (unknown) (unknown) Urine RBC (units (unkn own) date) (0-5/HPF) unknown) (unknown) (no (unknown) (unknown) Urine RBC (units (unkn own) date) 5-10/hpf H unknown) (0-5/HPF) (unknown) (no (unknown) (unknown) Urine Specific (units (unknown) date) [place] 1.025 unknown) (unknown) (no (unknown) (unknown) Urine WBC (units (unkn own) date) (0-5/HPF) unknown) (unknown) (no (unknown) (unknown) Urine WBC (units (unkn own) date) 30-100/hpf H unknown) (0-5/HPF) (unknown) (no (unknown) (unknown) Uterus:? Uterus (units (unknown) date) is anteverted and unknown) normal in size at 8 x 3.3 x 4.8 cm. The (unknown) (no (unknown) (unknown) Vital Signs - 8 (units (unknown) date) hr unknown) (unknown) (no (unknown) (unknown) Vital Signs (units (un known) date) unknown) (unknown) (no (unknown) (unknown) Vital signs: (units (u nknown) date) unknown) (unknown) (no (unknown) (unknown) WBC (4.5-11.0) (units (unknown) date) X103/uL unknown) (unknown) (no (unknown) (unknown) WBC 11.0 (units (unkno wn) date) (4.5-11.0) X103/uL unknown) (unknown) (no (unknown) (unknown) We strive to (units (u nknown) date) produce accurate, unknown) complete, and clear reports of imaging services. (unknown) (no (unknown) (unknown) [ ] New (units (unkno wn) date) medication written unknown) as a paper prescription (unknown) (no (unknown) (unknown) [ ] No new (units (unk nown) date) medications given unknown) (unknown) (no (unknown) (unknown) [Embedded Image (units (unknown) date) Not Available] unknown) (unknown) (no (unknown) (unknown) [x ] New (units (unkno wn) date) medication unknown) prescriptions sent to your pharmacy: [facility] in (unknown) (no (unknown) (unknown) adnexal and (units (un known) date) endometrial unknown) structures by transabdominal scanning.? (unknown) (no (unknown) (unknown) alcohol intake (units (unknown) date) frequency: other unknown) (unknown) (no (unknown) (unknown) along the (units (unkn own) date) unknown) (unknown) (no (unknown) (unknown) and OBGYN, (units (unk nown) date) preferably who unknown) specializes in PCOS. For any worsening symptoms, (unknown) (no (unknown) (unknown) and a pad (units (unkn own) date) multiple times per unknown) day, sometimes as frequently as every hour. (unknown) (no (unknown) (unknown) and nitrates. (units ( unknown) date) Will treat with unknown) cephalexin, as patient states that this has (unknown) (no (unknown) (unknown) and voice (units (unkn own) date) recognition unknown) software. Therefore, it may contain abnormal punctuation, (unknown) (no (unknown) (unknown) appointment. Let (units (unknown) date) them know you were unknown) seen in the Emergency Department and that we (unknown) (no (unknown) (unknown) ask that you be (units (unknown) date) seen in follow up. unknown) We will electronically transmit a record of (unknown) (no (unknown) (unknown) bleeding x3 (units (un known) date) months. Patient unknown) states that she has been soaking through a tampon (unknown) (no (unknown) (unknown) breathing, fever (units (unknown) date) greater than 101 unknown) F, shaking chills, persistent vomiting to the (unknown) (no (unknown) (unknown) but consistent (units (unknown) date) with PCOS. Vaginal unknown) ultrasound reveals 12 follicles on each (unknown) (no (unknown) (unknown) but may restart (units (unknown) date) tomorrow. Will unknown) prescribe an antibiotic for urinary tract (unknown) (no (unknown) (unknown) cephalexin 500 mg (units (unknown) date) capsule 1,000 mg unknown) PO BID uti 7 days #28 caps 08/25/22 (unknown) (no (unknown) (unknown) cephalexin 500 mg (units (unknown) date) capsule unknown) (unknown) (no (unknown) (unknown) consistent (units (unk nown) date) unknown) (unknown) (no (unknown) (unknown) demonstrates a (units (unknown) date) heterogeneous unknown) appearance.? No abnormal vascularity can be seen (unknown) (no (unknown) (unknown) dizziness. (units (unk nown) date) unknown) (unknown) (no (unknown) (unknown) documentation.? (units (unknown) date) unknown) (unknown) (no (unknown) (unknown) emergency (units (unkn own) date) department. unknown) (unknown) (no (unknown) (unknown) endometrial (units (un known) date) stripe. unknown) (unknown) (no (unknown) (unknown) endometrium (units (un known) date) unknown) (unknown) (no (unknown) (unknown) family doctor and (units (unknown) date) explains how much unknown) pain she is in, is told to go to the (unknown) (no (unknown) (unknown) flank pain.. (units (u nknown) date) Endorses increased unknown) vaginal bleeding. (unknown) (no (unknown) (unknown) follicles can be (units (unknown) date) unknown) (unknown) (no (unknown) (unknown) guarding or (units (un known) date) rebound. No unknown) suprapubic pain. (unknown) (no (unknown) (unknown) has been (units (unkno wn) date) reviewed. unknown) (unknown) (no (unknown) (unknown) history and help (units (unknown) date) get you set up unknown) with a doctor in the community. (unknown) (no (unknown) (unknown) homogeneous. ? (units (unknown) date) The endometrium unknown) measures 7 mm combined thickness.? The (unknown) (no (unknown) (unknown) inaccuracies. (units ( unknown) date) unknown) (unknown) (no (unknown) (unknown) increased vaginal (units (unknown) date) bleeding and lower unknown) abdominal pain. Assessment was encouraging (unknown) (no (unknown) (unknown) infection. Please (units (unknown) date) contact the number unknown) below in order to obtain a family doctor (unknown) (no (unknown) (unknown) insertions and/or (units (unknown) date) omissions. unknown) Occasional wrong-word or sound-alike substitutions (unknown) (no (unknown) (unknown) intact, cap (units (un known) date) refill <2 sec. unknown) (unknown) (no (unknown) (unknown) like them. (units (unk nown) date) Patient's mother, unknown) a nurse, states that every time she contacts that (unknown) (no (unknown) (unknown) lower back and (units (unknown) date) abdominal pain x1 unknown) month and increased and persistent vaginal (unknown) (no (unknown) (unknown) may (units (unkno wn) date) unknown) (unknown) (no (unknown) (unknown) myometrium is (units ( unknown) date) unknown) (unknown) (no (unknown) (unknown) occur. Though we (units (unknown) date) review the report unknown) and make efforts to correct it, we do (unknown) (no (unknown) (unknown) of 7.4 cc. The (units (unknown) date) left ovary unknown) measures 3 x 2.6 x 2.5 cm, with a calculated ovarian (unknown) (no (unknown) (unknown) ovary, consistent (units (unknown) date) with PCOS. Patient unknown) was given a single dose of Toradol for her (unknown) (no (unknown) (unknown) pain. Point of (units (unknown) date) care urine dip was unknown) consistent with UTI, positive blood, leuks (unknown) (no (unknown) (unknown) please return to (units (unknown) date) the emergency unknown) department. (unknown) (no (unknown) (unknown) point that you (units (unknown) date) cannot drink unknown) fluids, or other new or worsening symptoms. (unknown) (no (unknown) (unknown) recommend that (units (unknown) date) unknown) (unknown) (no (unknown) (unknown) rhonchi. No (units (un known) date) cough. No unknown) increased respiratory effort. No accessory muscle use. (unknown) (no (unknown) (unknown) seen in each (units (u nknown) date) ovary.? No adnexal unknown) masses are seen. (unknown) (no (unknown) (unknown) such as worsening (units (unknown) date) pain, severe unknown) headache, confusion, chest pain, difficulty (unknown) (no (unknown) (unknown) templates (units (unkn own) date) unknown) (unknown) (no (unknown) (unknown) the report be (units ( unknown) date) read carefully in unknown) proper context to recognize any text (unknown) (no (unknown) (unknown) the (units (unkno wn) date) unknown) (unknown) (no (unknown) (unknown) to investigate (units (unknown) date) obtaining a family unknown) doctor and OBGYN that specializes in PCOS. (unknown) (no (unknown) (unknown) tobacco type: (units ( unknown) date) vaping unknown) (unknown) (no (unknown) (unknown) today's note if (units (unknown) date) your PCP is in our unknown) system (unknown) (no (unknown) (unknown) us in improving (units (unknown) date) patient care, this unknown) report was composed using standard report (unknown) (no (unknown) (unknown) verbalized (units (unk nown) date) understanding and unknown) were agreeable course of action. (unknown) (no (unknown) (unknown) volume of (units (unkn own) date) unknown) (unknown) (no (unknown) (unknown) volume (units (unkno wn) date) unknown) (unknown) (no (unknown) (unknown) with polycystic (units (unknown) date) ovarian syndrome.? unknown) (unknown) (no (unknown) (unknown) worked well for (units (unknown) date) her in the past. unknown) Provided a phone number for patient and mother Result panel 111 (unknown) (no (unknown) (unknown) >100,000 cfu/ml (unkno wn) date) (unknown) (no (unknown) (unknown) GNBGram negative (units (unknown) date) bacilli unknown) (unknown) (no (unknown) (unknown) Identification (units (unknown) date) and Sensitivity to unknown) Follow Social History date description facility 2022-08-25 00:00 Smokes tobacco daily ([facility] Vital Signs date measurement value units 2022-08-25 00:00 BMI 36.7 kg/m2 2022-08-25 00:00 BP_diastolic 60 mmHg 2022-08-25 00:00 BP_systolic 131 mmHg 2022-08-25 00:00 heart_rate 100 /min 2022-08-25 00:00 height_metric 162.56 cm 2022-08-25 00:00 height_standard 64 in 2022-08-25 00:00 o2_saturation 100 % 2022-08-25 00:00 respiration_rate 16 /min 2022-08-25 00:00 temperature_metric 36.56 C 2022-08-25 00:00 temperature_standard 97.8 F 2022-08-25 00:00 weight_metric 97.06 kg 2022-08-25 00:00 weight_standard 213.98 lb
[2022-08-26] MEDS ORDERED: SODIUM CHLORIDE 0.9% 1,000 ML IV STA ×2 (22:24→23:40)
[2022-08-26] MEDS ORDERED: KETOROLAC 30 MG/ML VIAL IVP STA (22:24)
[2022-08-26] MEDS ORDERED: ACETAMINOPHEN 325 MG TABLET PO STA (22:24)
[2022-08-26 22:28] LABS: BASOPHILS # (AUTO) 0.1 10^3/uL (0.0-0.1); BASOPHILS % (AUTO) 0.4 %; EOSINOPHILS % (AUTO) 0.2 %; HCT - HEMATOCRIT 33.7 % (37.0-47.0); HGB - HEMOGLOBIN 10.8 g/dL (12.0-16.0); LYMPHOCYTES # (AUTO) 2.2 10^3/uL (1.5-3.5); LYMPHOCYTES % (AUTO) 15.6 %; MEAN CORPUSCULAR HEMOGLOBIN 28.1 pg (27.0-31.0); MEAN CORPUSCULAR VOLUME 87.5 fL (81.0-99.0); MEAN PLATELET VOLUME 9.3 fL (7.9-10.8); MONOCYTES # (AUTO) 1.3 10^3/uL (0.0-1.0); MONOCYTES % (AUTO) 9.1 %; NEUTROPHILS # (AUTO) 10.6 10^3/uL (1.5-6.6); NEUTROPHILS % (AUTO) 74.3 %; PLT - PLATELET COUNT 310 10^3/uL (130-450); RED BLOOD COUNT 3.85 10^6/uL (4.20-5.40); RED CELL DISTRIBUTION WIDTH 12.5 % (12.0-15.0); WHITE BLOOD COUNT 14.2 x10^3/uL (4.8-10.8)
[2022-08-26 22:31] LABS: BILIRUBIN,URINE NEGATIVE (NEGATIVE); GLUCOSE, URINE (UA) NEGATIVE (NEGATIVE); KETONES,URINE (UA) NEGATIVE (NEGATIVE); LEUKOCYTE ESTERASE, URINE TRACE (NEGATIVE); NITRITE,URINE NEGATIVE (NEGATIVE); OCCULT BLOOD,URINE LARGE (NEGATIVE); PROTEIN,URINE 100 mg/dL (NEGATIVE); UROBILINOGEN,URINE 1 (NORMAL) E.U./dL (NORMAL)
[2022-08-26 22:35] LABS: CLARITY,URINE HAZY (CLEAR)
[2022-08-26 22:36] LABS: BACTERIA,URINE Many /HPF (None Seen); RBC,URINE TNTC /HPF (0-5); SQUAMOUS EPITHELIAL CELL,UR RARE Squamous (<= Few)
[2022-08-26 22:38] LABS: ALBUMIN 3.7 g/dL (3.2-5.5); BILIRUBIN,TOTAL 0.8 mg/dL (0.2-1.0); CALCIUM 8.7 mg/dL (8.5-10.3); CREATININE 0.9 mg/dL (0.4-1.0); POTASSIUM 3.5 mmol/L (3.5-5.0); TOTAL PROTEIN 7.4 g/dL (6.7-8.2)
--- NOTE | 2022-08-26 22:39 | ED Physician Documentation ---
History of Present Illness - Stated complaint Stated Complaint: CHEST/HEAD/SIDE PX - Chief complaint Chief Complaint: Abd Pain - History obtained from History obtained from: Patient - Additonal information Additional information: The patient comes to the emergency department for chief complaint of headache and fever along with right flank pain for the last couple of days. She states that she was seen at [facility] 2 days ago and diagnosed with a "bad UTI". She was placed on Keflex which she started that day, but she states that the medicine is making her feel weird and that she seems to be getting worse, not better. She states she is run a fever of at least 102 every day. She did take some Tylenol this evening at about 1600. The patient does note that she has had somewhat of a stuffy nose also, and a little bit of cough and shortness of breath. She states that she has had some ongoing vaginal bleeding for The past year and had an ultrasound done at [facility] when she was there couple of days ago, which showed polycystic ovarian syndrome and 12 follicles. The patient states she has already been told previously that she has this condition. She states she has been trying to get into see "somebody" about it, but everyone is booked out for over a year and not taking any new patients, the patient states. No other complaints at this time. She was found not to be preg [facility]. PD PAST MEDICAL HISTORY - Past Medical History Cardiovascular: None Respiratory: Asthma Neuro: None Endocrine/Autoimmune: None GI: None FINANCIAL ADVISOR: None : None HEENT: Other Psych: Panic attacks Musculoskeletal: None Derm: Eczema - Past Surgical History Past Surgical History: No - Present Medications Home Medications: Ambulatory Orders Medication Instructions Recorded Confirmed Albuterol Sulf [Ventolin Hfa 1 - 2 puffs INH Q4HR PRN 12/03/20 02/28/21 Inhaler] Cefdinir 300 mg PO BID #14 cap 06/21/22 Ondansetron Odt [Zofran] 4 mg TL Q6H PRN #10 tablet 06/21/22 HYDROcod/ACETAM 5/325 [[place] 5/325] 1 - 2 tablet PO Q6H PRN #14 tablet 08/27/22 ONDANSETRON ODT Prepack 2 [ZOFRAN 4 mg TL Q6H PRN #20 tablet 08/27/22 ODT Prepack 2] levoFLOXacin [Levaquin] 500 mg PO QD #28 tablet 08/27/22 - Allergies Allergies/Adverse Reactions: Allergies Allergy/AdvReac Type Severity Reaction Status Date / Time No Known Drug Allergies Allergy Verified 08/26/22 22:07 - Social History Does the pt smoke?: No Smoking Status: Never smoker Does the pt drink ETOH?: No Does the pt have substance abuse?: No - Immunizations Immunizations are current?: Yes - POLST Patient has POLST: No PD ED PE NORMAL - Vitals Vital signs reviewed: Yes - General General: Alert and oriented X 3, No acute distress, Well developed/nourished - HEENT HEENT: Atraumatic, PERRL, EOMI, Moist mucous membranes - Neck Neck: Supple, no meningeal sign - Cardiac Cardiac: RRR, No murmur, Strong equal pulses - Respiratory Respiratory: No respiratory distress, Clear bilaterally - Abdomen Abdomen: Soft, Non distended, Other (Right flank pain, moderate, no rebound or guarding.) - Back Back: Other (Right CVA tenderness) - Derm Derm: Normal color, Warm and dry, No rash - Extremities Extremities: No deformity, No edema - Neuro Neuro: Alert and oriented X 3 - Psych Psych: Normal mood, Normal affect Results - Vitals Vitals: Vital Signs - 24 hr 08/26/22 08/26/22 08/26/22 21:57 22:00 23:22 Temperature 39.2 C H 38.1 C H Heart Rate 113 H 109 H 103 H Respiratory 24 24 24 Rate Blood Pressure 127/60 109/63 106/58 L O2 Saturation 97 99 95 08/27/22 00:54 Temperature 36.8 C Heart Rate 94 Respiratory 18 Rate Blood Pressure 109/53 L O2 Saturation 94 Oxygen O2 Source Room air - Labs Labs: Laboratory Tests 08/26/22 08/26/22 08/26/22 22:11 22:11 22:17 WBC 14.2 H RBC 3.85 L Hgb 10.8 L Hct 33.7 L MCV 87.5 MCH 28.1 MCHC 32.0 RDW 12.5 Plt Count 310 MPV 9.3 Neut # (Auto) 10.6 H Lymph # (Auto) 2.2 [place] # (Auto) 1.3 H Eos # (Auto) 0.0 Baso # (Auto) 0.1 Absolute Nucleated RBC 0.00 Nucleated RBC % 0.0 Sodium Potassium Chloride Carbon Dioxide Anion Gap BUN Creatinine Estimated GFR (MDRD) Glucose Lactic Acid Calcium Total Bilirubin AST ALT Alkaline Phosphatase Total Protein Albumin Globulin Albumin/Globulin Ratio Lipase Urine Color YELLOW Urine Clarity HAZY Urine pH 6.0 Ur Specific [place] 1.025 Urine Protein 100 H Urine Glucose (UA) NEGATIVE Urine Ketones NEGATIVE Urine Occult Blood LARGE H Urine Nitrite NEGATIVE Urine Bilirubin NEGATIVE Urine Urobilinogen 1 (NORMAL) Ur Leukocyte Esterase TRACE H Urine RBC TNTC H Urine WBC 11-25 H Ur Squamous Epith Cells RARE Squamous Urine Bacteria Many H Ur Microscopic Review INDICATED Urine Culture Comments INDICATED Urine HCG, Qual NEGATIVE Nasal Adenovirus (PCR) Nasal B. parapertussis DNA (PCR) Nasal Coronavir 229E PCR Nasal Coronavir HKU1 PCR Nasal Coronavir NL63 PCR Nasal Coronavir OC43 PCR Nasal Enterovir/Rhinovir PCR Nasal Influenza B PCR Nasal Influenza A PCR Nasal Parainfluen 1 PCR Nasal Parainfluen 2 PCR Nasal Parainfluen 3 PCR Nasal Parainfluen 4 PCR Nasal RSV (PCR) Nasal B.pertussis DNA PCR Nasal C.pneumoniae (PCR) Stef Human Metapneumo PCR Nasal M.pneumoniae (PCR) Nasal SARS-CoV-2 (PCR) 08/26/22 08/26/22 08/26/22 22:17 22:43 22:56 WBC RBC Hgb Hct MCV MCH MCHC RDW Plt Count MPV Neut # (Auto) Lymph # (Auto) [place] # (Auto) Eos # (Auto) Baso # (Auto) Absolute Nucleated RBC Nucleated RBC % Sodium 131 L Potassium 3.5 Chloride 97 L Carbon Dioxide 23 Anion Gap 11.0 BUN 12 Creatinine 0.9 Estimated GFR (MDRD) 80 L Glucose 124 H Lactic Acid 1.0 Calcium 8.7 Total Bilirubin 0.8 AST 15 ALT 12 Alkaline Phosphatase 67 Total Protein 7.4 Albumin 3.7 Globulin 3.7 Albumin/Globulin Ratio 1.0 Lipase 22 Urine Color Urine Clarity Urine pH Ur Specific [place] Urine Protein Urine Glucose (UA) Urine Ketones Urine Occult Blood Urine Nitrite Urine Bilirubin Urine Urobilinogen Ur Leukocyte Esterase Urine RBC Urine WBC Ur Squamous Epith Cells Urine Bacteria Ur Microscopic Review Urine Culture Comments Urine HCG, Qual Nasal Adenovirus (PCR) NOT DETECTED Nasal B. parapertussis DNA (PCR) NOT DETECTED Nasal Coronavir 229E PCR NOT DETECTED Nasal Coronavir HKU1 PCR NOT DETECTED Nasal Coronavir NL63 PCR NOT DETECTED Nasal Coronavir OC43 PCR NOT DETECTED Nasal Enterovir/Rhinovir PCR NOT DETECTED Nasal Influenza B PCR NOT DETECTED Nasal Influenza A PCR NOT DETECTED Nasal Parainfluen 1 PCR NOT DETECTED Nasal Parainfluen 2 PCR NOT DETECTED Nasal Parainfluen 3 PCR NOT DETECTED Nasal Parainfluen 4 PCR NOT DETECTED Nasal RSV (PCR) NOT DETECTED Nasal B.pertussis DNA PCR NOT DETECTED Nasal C.pneumoniae (PCR) NOT DETECTED Stef Human Metapneumo PCR NOT DETECTED Nasal M.pneumoniae (PCR) NOT DETECTED Nasal SARS-CoV-2 (PCR) NOT DETECTED - Rads (name of study) CT abdomen and pelvis no contrast Radiology: Final report received, See rad report (Right perinephric stranding, no obvious stone seen, could represent recently passed stone or pyelonephritis) PD Medical Decision Making - ED course Complexity details: reviewed old records, reviewed results, re-evaluated patient, considered differential, d/w patient ED course: The patient was treated with IV fluids, Zofran, Tylenol, and Toradol, and worked up with laboratory studies and urinalysis. Old records were ordered from [place]. I did order a CBC, ear abdominal panel, and urinalysis. The records fr [facility] included the CBC and CMP but unfortunately, did not include the urinalysis or any culture/sensitivity, nor did they include the ultrasound report. I did review our labs from today and by comparison, the patient had a white count of 14 here whereas she had had a normal white count of 11 [place]. Her ER abdominal panel was unremarkable. Urinalysis here showed large amount of occult blood and positive leukocyte esterase, bacteria, and white cells with normal squamous cells. Given that the patient was on Keflex as a 1 week course, I felt that her antibiotic should be changed to reflect her pyelonephritis and clearly worsening clinical status. She was given a dose of Levaquin 500 mg in the emergency department and I did prescribe the same for at home. She received 2 L of 0.9 normal saline in the ED, and ultimately had a dose of Dilaudid 0.5 mg IV to help with her headache. The patient reported some relief though stated she still did not feel great, but had been able to tolerate the p.o. Levaquin without vomiting. I discussed all of the findings with her and the plan to switch her antibiotics over. Her significant other is with her and states he will both drive her home and go get her medication at the pharmacy tomorrow. We have discussed the need to drink plenty of fluids and to tightly control fevers and that both of these will help the patient's general comfort overall. We have discussed the usual indications for return. Departure - Departure Disposition: 01 Home, Self Care Clinical Impression: Pyelonephritis Condition: Stable Instructions: ED Kidney Infec Female Prescriptions: levoFLOXacin [Levaquin] 500 mg PO QD #28 tablet HYDROcod/ACETAM 5/325 [[place] 5/325] 1 - 2 tablet PO Q6H PRN #14 tablet PRN Reason: Pain ONDANSETRON ODT Prepack 2 [ZOFRAN ODT Prepack 2] 4 mg TL Q6H PRN #20 tablet PRN Reason: Nausea / Vomiting Comments: Your labs show a moderately elevated white blood cell count which is not surprising, given the infection you have. However, there is no evidence of infection spreading throughout your body, a condition called "sepsis". Your viral panel does not show you to be positive for any other type of illness, and your urine is positive for infection. Your CT scan shows some inflammation around the right kidney but otherwise, no kidney stone or other concerning findings. As such, it is most likely that you have an infection of the right kidney. Because of this, you will need to be on a longer course of antibiotics, and we usually use a different kind of antibiotic for a bladder infection that has spread up to the kidney. As such, we have switched your antibiotics tonight, and you have been given the first dose here. A prescription for the same, along with prescriptions for pain and nausea medicine, has been electronically transmitted to the [facility] pharmacy in [place] your request. Please pick these up first thing tomorrow so that you can stay on your antibiotics, as directed. The new course will be for a total of 2 weeks, it is important that you take them every day, as directed, in order to get rid of the infection. Please also be sure to drink 8 to 10 cups of clear liquid, preferably water, every day. This will help you to feel better overall and will ensure that the antibiotics get to your kidneys as they should. This will also help with some of the horrible headache she been having. To help with your headaches also, as well as to help you generally feel better, it is important that you stay on top of your fevers by taking ibuprofen and Tylenol on schedule. You should take Tyl enol 650 mg every 4 hours and ibuprofen 600 mg every 6 hours during waking hours. Please try to stay on the schedule, as the 2 medications will work well together to help keep your high fevers down. These medications are unrelated and can be taken at the same time without causing harm. Please follow-up with your primary care physician as needed. You will most likely feel quite ill for the next several days, but should start to notice improvement after that. If you feel like you are getting significantly worse, or if you cannot hold your antibiotics down, please return to the emergency department. To optimize your ability to take your medication, though, you should nausea medicine regularly throughout the day, and should take your other medications 30 to 60 minutes after taking the nausea medicine to improve the likelihood of successfully keeping the other meds down. Discharge Date/Time: 08/27/22 00:55
[2022-08-26] MEDS ORDERED: levoFLOXacin 250 MG TABLET PO STA (23:10)
[2022-08-26] MEDS ORDERED: HYDROmorphone 0.5 MG/0.5 ML SYRINGE IVP STA (23:19)
[2022-08-26 23:28] LABS: HCG UR QUAL NEGATIVE
[2022-08-26 23:59] LABS: B. PARAPERTUSSIS- RESP PCR PAN NOT DETECTED; B. PERTUSSIS- RESP PCR PANEL NOT DETECTED; C. PNEUMONIAE- RESP PCR PANEL NOT DETECTED; CORONAVIRUS 229E-RESP PCR NOT DETECTED; CORONAVIRUS HKU1-RESP PCR NOT DETECTED; CORONAVIRUS NL63-RESP PCR NOT DETECTED; CORONAVIRUS OC43-RESP PCR NOT DETECTED; HUMAN METAPNEUMOVIRUS NOT DETECTED; INFLUENZA A- RESP PCR PANEL NOT DETECTED; INFLUENZA B - RESP PCR PANEL NOT DETECTED; M. PNEUMONIAE- RESP PCR PANEL NOT DETECTED; PARAINFLUENZA VIRUS 1 NOT DETECTED; PARAINFLUENZA VIRUS 2 NOT DETECTED; PARAINFLUENZA VIRUS 3 NOT DETECTED; PARAINFLUENZA VIRUS 4 NOT DETECTED; RHINOVIRUS/ENTEROVIRUS NOT DETECTED; RSV- RESP PCR PANEL NOT DETECTED; SARS-CoV-2 -RESP PCR PANEL NOT DETECTED
--- NOTE | 2022-08-27 00:22 | CT Report ---
PROCEDURE: ABDOMEN/PELVIS WO INDICATIONS: flank pain, hematuria TECHNIQUE: Noncontrast 5 mm thick sections acquired from the diaphragms to the symphysis. 5 mm coronal and sagi ttal reformats were then performed. For radiation dose reduction, the following was used: automated exposure control, adjustment of mA and/or kV according to patient size. COMPARISON: 08/14/2020 FINDINGS: Image quality: Excellent. ABDOMEN: Lung bases: Lung bases are clear. Heart size is normal. Solid organs: Liver and spleen are normal in size. Gallbladder has a normal noncontrast CT appearan ce. Pancreas is normal in contours. No adrenal nodules. The left kidney is minimally enlarged. There is mild left hydronephrosis and mild perinephric inflamm ation. No intrarenal calculi. No hydroureter or ureteral calculi. Peritoneum and bowel: Stomach and unenhanced bowel loops demonstrate normal wall thickness and calibe r. Normal appendix. No free fluid or air. Nodes and vessels: Several tiny left retroperitoneal lymph nodes present. A few minimally prominent nodes in the left pararenal region. No other retroperitoneal or mesenteric adenopathy by size criteri a. Aorta and inferior vena cava are normal in caliber. Miscellaneous: No ventral hernias. PELVIS: Genitourinary: Bladder wall thickness is normal. No bladder calculi. Anteverted uterus and ovaries grossly normal CT appearance. Miscellaneous: No inguinal hernias or adenopathy. Bones: No suspicious bony lesions. No vertebral body compression fractures. IMPRESSION: 1. Mild left hydronephrosis and perinephric inflammation. In the absence of visible obstructing calci fication, this may be due to recently passed calcification, noncalcified obstruction, or pyelonephrit is. 2. There is slight reactive left perirenal/retroperitoneal adenopathy. Reviewed by: Vania Beatty MD on 08/27/2022 12:21 AM PST Approved by: Vania Beatty MD on 08/27/2022 12:21 AM PST Station ID: [id number]
[2022-08-27] MEDS ORDERED: ONDANSETRON ODT 4 MG Prepack 2 TL PRN (00:32)
[2022-08-27 00:55] VITALS: BP 109/53
== END 2022-08-27 00:55 | disposition home or self-care (01) ==
LOC: ED 21:54
DX: N12 Tubulo-interstitial nephritis, not specified as acute or chronic (principal); R51.9 Headache, unspecified; Z20.822 Contact with and (suspected) exposure to COVID-19
CPT/HCPCS: 36415; 74176; 80053; 81001; 81025; 83605; 83690; 85025; 87040; 87086; 87633; 96361; 96374; 96375; 99284; A9270; J1170; 81003

== ENCOUNTER 2023-01-01 15:31 | Emergency (ER) | payer MEDICAID ==
[2023-01-01 15:39] VITALS: BP 127/68
--- NOTE | 2023-01-01 16:14 | ED Physician Documentation ---
PD HPI LOWER EXT INJURY - Stated complaint Stated Complaint: RT LEG PX/WEAKNESS - Chief complaint Chief Complaint: Ext Problem - History obtained from History obtained from: Patient - Additional information Additional information: 22-year-old female presents with right knee pain. She states she is twisted it on its buckled and given way several times over the course last couple weeks. She is also fallen on a few times, most recently she was playing softball yesterday and she twisted it and then landed on it. She has not noted any swelling, no abrasions to the area. She has not attempted any treatment. She has not followed up with Ortho or PCP for this issue. 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 : None HEENT: Other Psych: Panic attacks Musculoskeletal: None Derm: Eczema - Past Surgical History Past Surgical History: No - Present Medications Home Medications: Ambulatory Orders Medication Instructions Recorded Confirmed No Known Home Medications 01/01/23 01/01/23 - Allergies Allergies/Adverse Reactions: Allergies Allergy/AdvReac Type Severity Reaction Status Date / Time No Known Drug Allergies Allergy Verified 01/01/23 15:38 - Social History Does the pt smoke?: No Smoking Status: Never smoker Does the pt drink ETOH?: No Does the pt have substance abuse?: No - Immunizations Immunizations are current?: Yes - POLST Patient has POLST: No PD ED PE NORMAL - Vitals Vital signs reviewed: Yes - General General: Alert and oriented X 3, No acute distress, Well developed/nourished - HEENT HEENT: Atraumatic, Moist mucous membranes - Derm Derm: Normal color, Warm and dry, No rash - Extremities Extremities: No deformity, Other (Diffuse right knee tenderness without any obvious laxity or injury, there is no erythema, no swelling, no effusion, and there is tenderness on both joint lines, behind the knee as well as with tenderness of the patella.) Results - Vitals Vitals: Vital Signs - 24 hr 01/01/23 15:35 Temperature 36.6 C Heart Rate 85 Respiratory 16 Rate Blood Pressure 127/68 O2 Saturation 100 Oxygen O2 Source Room air - Rads (name of study) No standard instances Relevant Findings:: Final report received PD Medical Decision Making - ED course Complexity details: reviewed results, re-evaluated patient, considered differential, d/w patient, d/w family ED course: 22-year-old female presented with right knee pain as described in HPI. She has a number of recent minor injuries including twisting and landing on her knee. We obtain an x-ray today which is reassuring, no dislocation or fracture. Her exam is somewhat out of proportion to what I would expect as she has diffuse tenderness in all areas that I touched on her knee. I was not able to appreciate any laxity, swelling, signs of infection or effusion or other acute issues. I advised that she utilize a cool compress, and the Fito wrap, and she can have Tylenol or ibuprofen for pain. If pain persist beyond the next 1 to 2 weeks, she was advised to follow-up with her PCP, consider outpatient physical therapy. Departure - Departure Disposition: 01 Home, Self Care Clinical Impression: Right knee pain Qualifiers: Chronicity: acute Qualified Code(s): M25.561 - Pain in right knee Condition: Good Instructions: ED Sprain Knee Comments: Please follow-up with your primary doctor for your ongoing knee pain. He may benefit from physical therapy and, if no improvement with that, possibly an MRI. You can use ibuprofen or Tylenol for pain, use a cool compress to help with any swelling and a strep for compression. Discharge Date/Time: 01/01/23 16:34
--- NOTE | 2023-01-01 16:16 | XRAY Report ---
PROCEDURE: Knee 4 View RT INDICATIONS: Trauma TECHNIQUE: 4 views of the right knee(s) were acquired. COMPARISON: None. FINDINGS: Bones: No fractures or dislocations. No suspicious bony lesions. Soft tissues: No knee joint effusion. No suspicious soft tissue calcifications or masses. IMPRESSION: No acute bony abnormality. No significant joint effusion. Reviewed by: Sergio Miller MD on 01/01/2023 4:15 PM PDT Approved by: Sergio Miller MD on 01/01/2023 4:15 PM PDT Station ID: [id number]
== END 2023-01-01 16:34 | disposition home or self-care (01) ==
LOC: ED 15:31
DX: M25.561 Pain in right knee (principal); X50.1XXA Overexertion from prolonged static or awkward postures, initial encounter; Y93.64 Activity, baseball; Y92.320 Baseball field as the place of occurrence of the external cause
CPT/HCPCS: 99283

== ENCOUNTER 2023-03-14 13:43 | Emergency (ER) | payer MEDICAID ==
[2023-03-14 14:00] VITALS: BP 130/89; O2SAT 99
--- OUTSIDE RECORDS SUMMARY | 2023-03-14 14:14 | EXTERNAL MEDICAL SUMMARY RPT | Continuity of Care Document ---
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 Name Role Phone Calixto Alas Unavailable Unavailable Medications date description facility 2023-03-12 00:00 [facility] 2023-03-12 00:00 [facility] date description facility 2023-03-12 12:37 [facility] 2023-03-13 01:14 [facility] 2023-03-13 18:08 [facility] Results/Labs test date facility value unit notes Social History date description facility 2023-03-12 00:00 Smokes tobacco daily ([facility] Vital Signs date measurement value units 2023-03-12 00:00 BMI 39.3 kg/m2 2023-03-12 00:00 BP_diastolic 74 mmHg 2023-03-12 00:00 BP_systolic 120 mmHg 2023-03-12 00:00 heart_rate 91 /min 2023-03-12 00:00 height_metric 162.56 cm 2023-03-12 00:00 height_standard 64 in 2023-03-12 00:00 o2_saturation 98 % 2023-03-12 00:00 temperature_metric 36.72 C 2023-03-12 00:00 temperature_standard 98.1 F 2023-03-12 00:00 weight_metric 103.95 kg 2023-03-12 00:00 weight_standard 229.17 lb
[2023-03-14] MEDS ORDERED: CHERRY SYRUP 10 ML UDC PO ONE (14:46)
[2023-03-14] MEDS ORDERED: DEXAMETHASONE 10 MG/ML VIAL PO STA (14:46)
--- NOTE | 2023-03-14 14:58 | ED Physician Documentation ---
History of Present Illness - Stated complaint Stated Complaint: RT EAR HEARING LOSS - Chief complaint Chief Complaint: Heent - Additonal information Additional information: 22-year-old female presents emergency department for evaluation of worsening right ear pain now with muffled hearing and hearing loss. States that the left ear is also starting to become painful. Was diagnosed with otitis externa 5 days ago and put on Ciprodex drops. Despite this she continues to have worsening symptoms though no drainage from the ear. No fevers. Also reporting a cough for about 1 month with a lot of throat pain and postnasal drip. Review of Systems Constitutional: denies: Fever Ears: reports: Loss of hearing, Ear pain. 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 : None HEENT: Other Psych: Panic attacks Musculoskeletal: None Derm: Eczema - Past Surgical History Past Surgical History: No - Present Medications Home Medications: Ambulatory Orders Medication Instructions Recorded Confirmed Amox/Clav 875/125 [Augmentin] 1 each PO Q12H #20 tablet 03/14/23 - Allergies Allergies/Adverse Reactions: Allergies Allergy/AdvReac Type Severity Reaction Status Date / Time Sulfa (Sulfonamide Allergy Emesis Verified 03/14/23 13:52 Antibiotics) - Social History Does the pt smoke?: No Smoking Status: Never smoker Does the pt drink ETOH?: No Does the pt have substance abuse?: No - Immunizations Immunizations are current?: Yes - POLST Patient has POLST: No PD ED PE NORMAL - General General: Alert and oriented X 3, No acute distress, Well developed/nourished - HEENT HEENT: Atraumatic, Moist mucous membranes, Pharynx benign (Posterior oropharynx with mild erythema but no exudate. Uvula is midline. No soft palate asymmetry or swelling. Normal phonation normal swallow. 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 No: Ears normal (Bilateral EAC erythema without drainage. Bilateral TM effusions without perforation.) - Neck Neck: Supple, no meningeal sign, No adenopathy - Cardiac Cardiac: RRR, No murmur - Respiratory Respiratory: No respiratory distress, Clear bilaterally - Abdomen Abdomen: Normal bowel sounds, Soft, Non tender Results - Vitals Vitals: Vital Signs - 24 hr 03/14/23 13:52 Temperature 36.6 C Heart Rate 90 Respiratory 16 Rate Blood Pressure 130/89 H O2 Saturation 99 Oxygen O2 Source Room air PD Medical Decision Making - ED course Complexity details: reviewed results, re-evaluated patient, d/w patient ED course: 22-year-old female presents emergency department for evaluation worsening right ear pain with muffled hearing and now left ear pain. Was treated with Ciprodex 5 days ago for otitis externa. Despite this continues to have worsening symptoms. She also has chronic congestion and postnasal drip causing a sore throat. On exam she does have bilateral ear effusions though no TM rupture. Both your canals however are swollen and red. No drainage. Given failure of symptoms with Ciprodex drops we will start the patient on oral antibiotics, Augmentin. The patient's cardiopulmonary saltation was unremarkable. She reports a cough for about 1 month though I suspect this is postnasal drip coming from chronic congestion. It is likely this congestion that has caused the ear effusions. I am making the recommendation to use Sudafed [id number] or saline with Flonase. Patient was given a single dose of Decadron today in the emergency department to help with pain and inflammation. I am making the recommendation for Tylenol or ibuprofen [id number] for discomfort. The usual emergent return precautions worsening symptoms was discussed. Departure - Departure Disposition: 01 Home, Self Care Clinical Impression: Bilateral otitis media with effusion, Sore throat Condition: Stable Record reviewed to determine appropriate education?: Yes Instructions: ED Otitis Media Acute Adult Prescriptions: Amox/Clav 875/125 [Augmentin] 1 each PO Q12H #20 tablet Comments: You have developed bilateral inner ear infections. In order to help manage this we will be starting you on an antibiotic called Augmentin. This has been sent to the [facility] in [place]. You do have a lot of nasal and sinus congestion. This is causing postnasal drip which is likely irritating your throat. I recommend buying a decongestant [id number] such as Sudafed or using saline nasal sprays followed by Flonase to help with the congestion. We did give you a single dose of Decadron today in the emergency department which is a steroid. It will help with pain and inflammation over the next several days. In general I would recommend Tylenol and ibuprofen [id number]-[id number] for the sore throat and ear discomfort. With the antibiotics and decongestions I would expect your symptoms to be getting better over the next 48 to 72 hours. If not improving, you develop drainage from your ears, or have any other new or worsening symptoms then please return to the ER for second evaluation
== END 2023-03-14 15:18 | disposition home or self-care (01) ==
LOC: ED 13:43
DX: H65.93 Unspecified nonsuppurative otitis media, bilateral (principal)
CPT/HCPCS: 99282; 99283; A9270

== ENCOUNTER 2023-03-16 21:06 | Emergency (ER) | payer MEDICAID ==
--- OUTSIDE RECORDS SUMMARY | 2023-03-16 22:01 | EXTERNAL MEDICAL SUMMARY RPT | Continuity of Care Document ---
Author Name Unknown Address [address] [place] [address] Phone Organization [facility] Address [address] [place] [address] Phone Care Team Providers Care Compound Filler Name Role Phone Calixto Alas Unavailable Unavailable Medications date description facility 2023-03-12 00:00 [facility] 2023-03-12 00:00 Albuterol Sulfate [facility] Problems date description facility 2023-03-12 12:37 [facility] 2023-03-13 01:14 [facility] 2023-03-13 18:08 [facility] Results/Labs test date facility value unit notes Social History date description facility 2023-03-12 00:00 Smokes tobacco daily ([facility] Vital Signs date measurement value units [...]
[2023-03-16] MEDS ORDERED: predniSONE 20 MG TABLET PO STA (22:42)
[2023-03-16 23:09] LABS: BILIRUBIN,URINE NEGATIVE (NEGATIVE); GLUCOSE, URINE (UA) NEGATIVE (NEGATIVE); KETONES,URINE (UA) NEGATIVE (NEGATIVE); LEUKOCYTE ESTERASE, URINE NEGATIVE (NEGATIVE); NITRITE,URINE NEGATIVE (NEGATIVE); OCCULT BLOOD,URINE NEGATIVE (NEGATIVE); PH,URINE 5.5 PH (5.0-7.5); PROTEIN,URINE NEGATIVE (NEGATIVE); UROBILINOGEN,URINE 0.2 (NORMAL) E.U./dL (NORMAL)
[2023-03-16 23:13] LABS: CLARITY,URINE CLEAR (CLEAR); HCG UR QUAL NEGATIVE
[2023-03-17 00:40] VITALS: BP 123/83; O2SAT 97
[2023-03-17 02:22] LABS: B. PARAPERTUSSIS- RESP PCR PAN NOT DETECTED; B. PERTUSSIS- RESP PCR PANEL NOT DETECTED; C. PNEUMONIAE- RESP PCR PANEL NOT DETECTED; CORONAVIRUS 229E-RESP PCR NOT DETECTED; CORONAVIRUS HKU1-RESP PCR NOT DETECTED; CORONAVIRUS NL63-RESP PCR NOT DETECTED; CORONAVIRUS OC43-RESP PCR NOT DETECTED; HUMAN METAPNEUMOVIRUS NOT DETECTED; INFLUENZA A- RESP PCR PANEL NOT DETECTED; INFLUENZA B - RESP PCR PANEL NOT DETECTED; M. PNEUMONIAE- RESP PCR PANEL NOT DETECTED; PARAINFLUENZA VIRUS 1 NOT DETECTED; PARAINFLUENZA VIRUS 2 NOT DETECTED; PARAINFLUENZA VIRUS 3 NOT DETECTED; PARAINFLUENZA VIRUS 4 NOT DETECTED; RHINOVIRUS/ENTEROVIRUS DETECTED; RSV- RESP PCR PANEL NOT DETECTED; SARS-CoV-2 -RESP PCR PANEL NOT DETECTED
--- NOTE | 2023-03-18 03:37 | ED Physician Documentation ---
History of Present Illness - Stated complaint Stated Complaint: SOA - Chief complaint Chief Complaint: Resp - History obtained from History obtained from: Patient - Additonal information Additional information: HPI from patient. This is patients 7th [place] ED visit over past 12 months to two different EDs. Patient says she does not have a PMD. She c/o dyspnea, productive cough, sinus congestion, decreased hearing right ear for approximately one week. Was seen at a walk-in clinic 03/13, rx macrobid for UTI symptoms, albuterol for URI symptoms, ciprodex (otic drops) and naproxen. She then was T+R from this ED 03/14 for evaluation of the above symptoms (URI symptoms), and augmentin was prescribed. Patient presents due to ongoing symptoms as above. She says she has not had improvement in UTI symptoms. When I ask what the UTI symptoms were that resulted in the rx for the antibiotic (macrobid), she says she did not have any and that she was being evaluated for her URI symptoms and was told her urinalysis was c/w UTI and thus was prescribed macrobid. Further discussion did not clarify why she feels her UTI has not resolved when she has not been having UTI symptoms. Denies fever. PMHx includes asthma. Review of Systems Constitutional: reports: Reviewed and negative Cardiac: denies: Chest pain / pressure Respiratory: reports: Dyspnea, Cough. 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 HEENT: Other Psych: Panic attacks Musculoskeletal: None Derm: Eczema - Past Surgical History Past Surgical History: No - Present Medications Home Medications: Ambulatory Orders Medication Instructions Recorded Confirmed Amox/Clav 875/125 [Augmentin] 1 each PO Q12H #20 tablet 03/14/23 03/16/23 Nitrofurantoin [Macrobid] 100 mg PO BID 03/16/23 03/16/23 Ciprofloxacin HCl 1 tablet PO BID 14 Days #28 tablet 03/17/23 predniSONE [Deltasone] 40 mg PO DAILY 4 Days #8 tablet 03/17/23 - Allergies Allergies/Adverse Reactions: Allergies Allergy/AdvReac Type Severity Reaction Status Date / Time cephalexin Allergy Severe Hives Verified 03/16/23 21:38 Sulfa (Sulfonamide Allergy Emesis Verified 03/16/23 21:38 Antibiotics) - Social History Does the pt smoke?: No Smoking Status: Never smoker Does the pt drink ETOH?: No Does the pt have substance abuse?: No - Immunizations Immunizations are current?: Yes - POLST Patient has POLST: No PD ED PE NORMAL - Vitals Vital signs reviewed: Yes - General General: Alert and oriented X 3 - Neck Neck: Supple, no meningeal sign - Cardiac Cardiac: RRR, No murmur - Respiratory Respiratory: No respiratory distress, Clear bilaterally - Abdomen Abdomen: Soft, Non tender - Back Back: No CVA TTP Results - Vitals Vitals: Oxygen O2 Source Room air - Labs Labs: Laboratory Tests 03/16/23 03/16/23 03/16/23 23:00 23:01 23:01 Urine Color YELLOW Urine Clarity CLEAR Urine pH 5.5 Ur Specific [place] >=1.030 H Urine Protein NEGATIVE Urine Glucose (UA) NEGATIVE Urine Ketones NEGATIVE Urine Occult Blood NEGATIVE Urine Nitrite NEGATIVE Urine Bilirubin NEGATIVE Urine Urobilinogen 0.2 (NORMAL) Ur Leukocyte Esterase NEGATIVE Ur Microscopic Review NOT INDICATED Urine Culture Comments NOT INDICATED Urine HCG, Qual NEGATIVE Nasal Adenovirus (PCR) NOT DETECTED Nasal B. parapertussis DNA (PCR) NOT DETECTED Nasal Coronavir 229E PCR NOT DETECTED Nasal Coronavir HKU1 PCR NOT DETECTED Nasal Coronavir NL63 PCR NOT DETECTED Nasal Coronavir OC43 PCR NOT DETECTED Nasal Enterovir/Rhinovir PCR DETECTED A Nasal Influenza B PCR NOT DETECTED Nasal Influenza A PCR NOT DETECTED Nasal Parainfluen 1 PCR NOT DETECTED Nasal Parainfluen 2 PCR NOT DETECTED Nasal Parainfluen 3 PCR NOT DETECTED Nasal Parainfluen 4 PCR NOT DETECTED Nasal RSV (PCR) NOT DETECTED Nasal B.pertussis DNA PCR NOT DETECTED Nasal C.pneumoniae (PCR) NOT DETECTED Stef Human Metapneumo PCR NOT DETECTED Nasal M.pneumoniae (PCR) NOT DETECTED Nasal SARS-CoV-2 (PCR) NOT DETECTED PD Medical Decision Making - ED course Complexity details: reviewed old records, re-evaluated patient, considered differential, d/w patient ED course: HPI is s/o bronchitis with bronchospasm. Although her lungs sounds are CTA bilaterally on my exam, she exhibits frequent, bronchospastic/staccato coughing spells during my H+P. She is given 40mg PO prednisone in ED and rx for four-day daily prednisone is provided. A chest xray and nasal PCR panel are both pending (cxr not yet performed, nasal swab done but not resulted) when patient is asking to leave. She tells me she does not want to wait for results. I emphasized the need for establishing with a local primary care provider, with one of the benefits being that she can seek outpatient evaluation for non-emergent symptoms, as well as follow-up for ED visits. I am providing rx for cipro to cover both respiratory and (bacterial) infections, and instructing her to discontinue the antibiotics she is currently taking (macrobid, augmentin; she has had two or more days of both of these medications and reports no improvement in symptoms). Her UA tonight is negative, but she is currently taking macrobid for reported UTI (results not available to me), so UTI symptoms with normal UA could represent false-negative due to partially treated UTI. As HPI reflects, patient initially says she was put on the antibiotic for abnormal UA despite no UTI symptoms, but as we discussed discharge plan, she says she is having burning dysuria and frequency. Departure - Departure Disposition: Home, Self Care Clinical Impression: Bronchitis Otitis media Qualifiers: Otitis media type: unspecified Chronicity: acute Qualified Code(s): H66.90 - Otitis media, unspecified, unspecified ear Condition: Good Instructions: ED Otitis Media Acute Adult Prescriptions: Ciprofloxacin HCl 1 tablet PO BID 14 Days #28 tablet predniSONE [Deltasone] 40 mg PO DAILY 4 Days #8 tablet Comments: I recommend that you stop the antibiotics that you are currently taking. In their place, I have prescribed a different antibiotic (ciprofloxacin). The ciprofloxacin should have good coverage of the types of bacteria that would c ause sinusitis, bronchitis, and urinary tract infection. As we discussed, your urinalysis tonight was normal, which would certainly suggest against a urinary tract infection. The situation is slightly complicated by the fact that you are taking, or have recently taken, antibiotics for a urinary tract infection; this can sometimes give a "false negative" result (meaning the urinalysis looks normal despite presence of an infection). You should establish yourself with a local primary care provider. This would be particularly helpful for follow-up for ER visit such as this. The decreased hearing in the right ear is likely due to fluid building up in the middle ear. However, this problem (decreased hearing) needs further testing by a specialist (performance architect), and this requires a referral from a primary care provider. Contact your insurance provider to ask about how to become established with a local primary care provider. I have electronically submitted prescriptions for the antibiotic (ciprofloxacin) as well as a short course of daily steroid (prednisone) to the [facility] pharmacy in [place]. Forms: PCP List Discharge Date/Time: 03/17/23 00:33
== END 2023-03-17 00:33 | disposition home or self-care (01) ==
LOC: ED 21:06
DX: J40 Bronchitis, not specified as acute or chronic (principal); H66.90 Otitis media, unspecified, unspecified ear; Z20.822 Contact with and (suspected) exposure to COVID-19
CPT/HCPCS: 81003; 81025; 87633; 99284; J7512; 81001; 87086

== ENCOUNTER 2023-04-16 08:00 | Outpatient (CLI) | payer MEDICAID ==
[2023-04-16 20:26] LABS: BILIRUBIN,URINE NEGATIVE (NEGATIVE); GLUCOSE, URINE (UA) NEGATIVE (NEGATIVE); KETONES,URINE (UA) NEGATIVE (NEGATIVE); LEUKOCYTE ESTERASE, URINE SMALL (NEGATIVE); NITRITE,URINE NEGATIVE (NEGATIVE); OCCULT BLOOD,URINE NEGATIVE (NEGATIVE); PROTEIN,URINE TRACE mg/dL (NEGATIVE); UROBILINOGEN,URINE 1 (NORMAL) E.U./dL (NORMAL)
[2023-04-16 20:27] LABS: CLARITY,URINE CLOUDY (CLEAR)
[2023-04-16 20:39] LABS: AMORPHOUS SEDIMENT,UR Moderate /LPF; BACTERIA,URINE Few /HPF (None Seen); RBC,URINE 0-5 /HPF (0-5); SQUAMOUS EPITHELIAL CELL,UR RARE Squamous (<= Few)
== END 2023-04-16 23:59 | disposition home or self-care (01) ==
LOC: LAB.S 08:00
PROVIDERS: ATTEND Emergency Medicine
DX: R30.0 Dysuria (principal)
CPT/HCPCS: 81001; 87086

== ENCOUNTER 2023-04-17 08:00 | Outpatient (CLI) | payer MEDICAID ==
[2023-04-17 21:00] LABS: BACTERIAL VAGINOSIS DNA POSITIVE (NEGATIVE); CANDIDA GLABRATA DNA NEGATIVE (NEGATIVE); CANDIDA GROUP DNA POSITIVE (NEGATIVE); CANDIDA KRUSEI DNA NEGATIVE (NEGATIVE); TRICHOMONAS VAGINALIS DNA NEGATIVE (NEGATIVE)
== END 2023-04-17 23:59 | disposition home or self-care (01) ==
LOC: LAB.S 08:00
PROVIDERS: ATTEND Emergency Medicine
DX: R30.0 Dysuria (principal)
CPT/HCPCS: 81514

== ENCOUNTER 2023-05-13 18:24 | Emergency (ER) | payer MEDICAID ==
[2023-05-13 18:48] VITALS: BP 122/65; O2SAT 100
[2023-05-13 19:10] LABS: BASOPHILS # (AUTO) 0.1 10^3/uL (0.0-0.1); BASOPHILS % (AUTO) 0.9 %; EOSINOPHILS # (AUTO) 0.1 10^3/uL (0.0-0.7); EOSINOPHILS % (AUTO) 1.7 %; HCT - HEMATOCRIT 36.5 % (37.0-47.0); HGB - HEMOGLOBIN 11.9 g/dL (12.0-16.0); LYMPHOCYTES # (AUTO) 2.7 10^3/uL (1.5-3.5); LYMPHOCYTES % (AUTO) 32.8 %; MEAN CORPUSCULAR HGB CONC 32.6 g/dL (32.0-36.0); MEAN CORPUSCULAR VOLUME 79.9 fL (81.0-99.0); MONOCYTES # (AUTO) 0.4 10^3/uL (0.0-1.0); MONOCYTES % (AUTO) 4.4 %; NEUTROPHILS # (AUTO) 4.9 10^3/uL (1.5-6.6); NEUTROPHILS % (AUTO) 60.1 %; PLT - PLATELET COUNT 397 10^3/uL (130-450); RED BLOOD COUNT 4.57 10^6/uL (4.20-5.40); RED CELL DISTRIBUTION WIDTH 13.6 % (12.0-15.0); WHITE BLOOD COUNT 8.2 x10^3/uL (4.8-10.8)
[2023-05-13 19:27] LABS: ALBUMIN 4.1 g/dL (3.2-5.5); ALBUMIN/GLOBULIN RATIO 1.4 (1.0-2.2); BILIRUBIN,TOTAL 0.3 mg/dL (0.2-1.0); CALCIUM 9.2 mg/dL (8.5-10.3); CREATININE 0.5 mg/dL (0.6-1.3)
--- NOTE | 2023-05-13 21:01 | ED Physician Documentation ---
ED Addendum - Addendum Addendum: 05/13/23 20:59 I had signed up to see this patient, but when I went to evaluate her, she was not in the room and I was informed by nursing staff that she had dSheecided to leave the emergency department and forego EDMD evaluation.
[2023-05-13 21:26] LABS: HCG,QUALITATIVE BLOOD POSITIVE
== END 2023-05-13 20:57 | disposition left against medical advice (07) ==
LOC: ED 18:24
DX: Z53.21 Procedure and treatment not carried out due to patient leaving prior to being seen by health care provider (principal)
CPT/HCPCS: 36415; 80053; 83690; 84703; 85025; 86900; 86901

== ENCOUNTER 2023-08-13 14:12 | Outpatient (CLI) | payer MEDICAID ==
[2023-08-13 14:26] LABS: BASOPHILS # (AUTO) 0.1 10^3/uL (0.0-0.1); BASOPHILS % (AUTO) 0.7 %; EOSINOPHILS # (AUTO) 0.2 10^3/uL (0.0-0.7); EOSINOPHILS % (AUTO) 2.2 %; HCT - HEMATOCRIT 41.4 % (37.0-47.0); HGB - HEMOGLOBIN 13.1 g/dL (12.0-16.0); LYMPHOCYTES # (AUTO) 3.2 10^3/uL (1.5-3.5); LYMPHOCYTES % (AUTO) 44.6 %; MEAN CORPUSCULAR HEMOGLOBIN 25.7 pg (27.0-31.0); MEAN CORPUSCULAR HGB CONC 31.6 g/dL (32.0-36.0); MEAN CORPUSCULAR VOLUME 81.3 fL (81.0-99.0); MEAN PLATELET VOLUME 8.9 fL (7.9-10.8); MONOCYTES # (AUTO) 0.4 10^3/uL (0.0-1.0); MONOCYTES % (AUTO) 6.1 %; NEUTROPHILS # (AUTO) 3.4 10^3/uL (1.5-6.6); NEUTROPHILS % (AUTO) 46.1 %; PLT - PLATELET COUNT 394 10^3/uL (130-450); RED BLOOD COUNT 5.09 10^6/uL (4.20-5.40); RED CELL DISTRIBUTION WIDTH 12.9 % (12.0-15.0); WHITE BLOOD COUNT 7.3 x10^3/uL (4.8-10.8)
[2023-08-13 14:53] LABS: ALBUMIN 4.2 g/dL (3.2-5.5); ALBUMIN/GLOBULIN RATIO 1.2 (1.0-2.2); ALKALINE PHOSPHATASE 89 IU/L (42-121); ALT ALANINE AMINOTRANSFERASE 10 IU/L (10-60); AST ASPARTATE AMINOTRANSFERASE 11 IU/L (10-42); BILIRUBIN,TOTAL 0.5 mg/dL (0.2-1.0); BUN - BLOOD UREA NITROGEN 12 mg/dL (6-20); CALCIUM 9.6 mg/dL (8.5-10.3); CARBON DIOXIDE - CO2 28 mmol/L (21-32); CHLORIDE 102 mmol/L (101-111); CHOL/HDL RATIO 4.9 (<4.4); CHOLESTEROL 196 mg/dL; CREATININE 0.7 mg/dL (0.6-1.3); GFR - MDRD 106 (>89); GLUCOSE 101 mg/dL (74-104); HDL CHOLESTEROL 40 mg/dL; LDL CHOLESTEROL,CALCULATED 116 mg/dL; LDL/HDL RATIO 2.9 (<4.4); POTASSIUM 4.2 mmol/L (3.5-4.5); SODIUM 137 mmol/L (135-145); TOTAL PROTEIN 7.6 g/dL (6.4-8.9); TRIGLYCERIDES 202 mg/dL (48-352); VLDL CHOLESTEROL 40 mg/dL
[2023-08-13 14:59] LABS: THYROID STIMULATING HORMONE 1.68 uIU/mL (0.34-5.60)
[2023-08-13 21:15] LABS: ESTIMATED AVERAGE GLUCOSE 108 mg/dL (70-100); HEMOGLOBIN A1c% 5.4 % (4.27-6.07)
== END 2023-08-13 14:13 | disposition home or self-care (01) ==
LOC: LAB 14:12
DX: E28.2 Polycystic ovarian syndrome (principal); R55 Syncope and collapse; N92.6 Irregular menstruation, unspecified; Z13.220 Encounter for screening for lipoid disorders; E66.3 Overweight
CPT/HCPCS: 36415; 80053; 80061; 83036; 83721; 84443; 85025

== ENCOUNTER 2023-11-25 16:20 | Emergency (ER) | payer MEDICAID ==
[2023-11-25 16:31] VITALS: BP 132/68; O2SAT 97
--- NOTE | 2023-11-25 16:50 | ED Physician Documentation ---
PD HPI UPPER EXT INJURY - Stated complaint Stated Complaint: R HAND PX - Chief complaint Chief Complaint: Trauma Ext - History obtained from History obtained from: Patient - Additonal information Additional information: Patient is a 23-year-old female who is [id number] presenting for evaluation of right wrist and right hand pain after a ground-level fall earlier today. Patient states that she slipped and fell with catching herself on her right hand. This happened around 10 AM. No head injury and denies injuries elsewhere. Does not take any blood thinners. 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 : None HEENT: Other Psych: Panic attacks Musculoskeletal: None Derm: Eczema - Past Surgical History Past Surgical History: No - Present Medications Home Medications: Ambulatory Orders Medication Instructions Recorded Confirmed No Known Home Medications 11/25/23 11/25/23 - Allergies Allergies/Adverse Reactions: Allergies Allergy/AdvReac Type Severity Reaction Status Date / Time cephalexin Allergy Severe Hives Verified 11/25/23 16:25 Sulfa (Sulfonamide Allergy Emesis Verified 11/25/23 16:25 Antibiotics) - Social History Does the pt smoke?: No Smoking Status: Former smoker Does the pt drink ETOH?: Yes Does the pt have substance abuse?: Yes Substance Use and Type: Marijuana - Immunizations Immunizations are current?: Yes - POLST Patient has POLST: No PD ED PE NORMAL - General General: Alert and oriented X 3, No acute distress, Well developed/nourished - HEENT HEENT: Atraumatic - Cardiac Cardiac: Strong equal pulses - Respiratory Respiratory: No respiratory distress - Extremities Extremities: Other (Tenderness over right wrist and dorsum of right hand over fifth metacarpal, normal range of motion at all joints but does report pain. No deformity, brisk cap refill, no signs of infection) Results - Vitals Vitals: Vital Signs - 24 hr 11/25/23 16:25 Temperature 37 C Heart Rate 85 Respiratory 18 Rate Blood Pressure 132/68 H O2 Saturation 97 Oxygen O2 Source Room air PD Medical Decision Making - ED course Complexity details: reviewed results, d/w patient ED course: Patient with injuries to right hand and wrist after fall this morning. Neurovascular intact with no open wounds. X-rays were obtained of the right hand and wrist which I reviewed I see no fractures. She is placed into a Velcro wrist splint. Counseled on continued supportive care as well as concerning symptoms to return for. Departure - Departure Disposition: Home, Self Care Clinical Impression: Injury of right hand, Right wrist sprain Condition: Stable Instructions: ED Splint Care Velcro, ED Sprain Wrist Comments: Your x-ray does not show a fracture or dislocation. You do have a small cyst in one of your wrist bones. However this should not be the cause for your pain today. We have placed you into a wrist splint for a sprain. Continue with anti-inflammatory such as acetaminophen or ibuprofen, ice, elevation. I would recommend follow-up with your primary care if your symptoms are not improving over the course of the next week. Forms: PCP List Discharge Date/Time: 11/25/23 17:18
--- NOTE | 2023-11-25 17:06 | XRAY Report ---
PROCEDURE: Hand 3+V RT INDICATIONS: fall/pain TECHNIQUE: 3 views of the hand(s) acquired. COMPARISON: None. FINDINGS: Bones: No fractures or dislocations. A small cystic focus within the capitate measuring 5 mm. No lopez spicious bony lesions. Soft tissues: No suspicious soft tissue calcifications or masses. IMPRESSION: 1.No acute bony abnormality. 2.Small cystic focus within the capitate measuring 5 mm, likely a benign cyst. Reviewed by: Gareth Linares MD on 11/25/2023 5:05 PM PDT Approved by: Gareth Linares MD on 11/25/2023 5:05 PM PDT Station ID: [id number]
--- NOTE | 2023-11-25 17:07 | XRAY Report ---
PROCEDURE: Wrist 3+V RT INDICATIONS: fall/pain TECHNIQUE: 4 views of the wrist were acquired. COMPARISON: None. FINDINGS: Bones: No fractures or dislocations. Small benign-appearing cystic focus within the capitate measur ing 5 mm. No suspicious bony lesions. Soft tissues: No suspicious soft tissue calcifications or masses. IMPRESSION: 1.No acute bony abnormality. If pain persists with conservative management, consider repeat x-ray in 10-14 days or cross-sectional imaging. 2.Small benign-appearing cystic focus with neck measuring 5 mm. Reviewed by: Gareth Linares MD on 11/25/2023 5:06 PM PDT Approved by: Gareth Linares MD on 11/25/2023 5:06 PM PDT Station ID: [id number]
== END 2023-11-25 17:18 | disposition home or self-care (01) ==
LOC: ED 16:20
DX: S69.91XA Unspecified injury of right wrist, hand and finger(s), initial encounter (principal); S63.501A Unspecified sprain of right wrist, initial encounter; W18.30XA Fall on same level, unspecified, initial encounter; M85.68 Other cyst of bone, other site; Z87.891 Personal history of nicotine dependence
CPT/HCPCS: 99283

== ENCOUNTER 2023-12-24 03:03 | Emergency (ER) | payer MEDICAID ==
--- NOTE | 2023-12-24 03:07 | ED Physician Documentation ---
PD HPI HEENT - Stated complaint Stated Complaint: OBJECT STUCK IN L EAR/BILATERAL HEARING LOSS - History obtained from History obtained from: Patient - Additional information Additional information: HPI from patient. Patient says she was using a Q-tip to clean deep into her left ear tonight; upon removing the Q-tip, the cotton swab was no longer on the Q-tip and thus obviously was still stuck in the left auditory canal. This is associated with a left ear foreign body sensation and muffled hearing out of that ear. En route to the emergency department, the patient notes that she now has decreased hearing in both ears. She says that episodic decreased hearing in 1 or both ears has been an ongoing problem for her and there are unscheduled plans to have tubes placed in both ears (she said she had a schedule appointment for this, but it was canceled due to insurance issues and she is in the process of working on this). She denies pain, ear discharge. PD PAST MEDICAL HISTORY - Past Medical History Cardiovascular: None Respiratory: Asthma Neuro: None Endocrine/Autoimmune: None GI: None COUNTER MOLDER: None : None HEENT: Other Psych: Panic attacks Musculoskeletal: None Derm: Eczema - Past Surgical History Past Surgical History: No - Present Medications Home Medications: Ambulatory Orders Medication Instructions Recorded Confirmed No Known Home Medications 11/25/23 11/25/23 - Allergies Allergies/Adverse Reactions: Allergies Allergy/AdvReac Type Severity Reaction Status Date / Time cephalexin Allergy Severe Hives Verified 12/24/23 03:13 Sulfa (Sulfonamide Allergy Emesis Verified 12/24/23 03:13 Antibiotics) - Social History Does the pt smoke?: No Smoking Status: Former smoker Does the pt drink ETOH?: Yes Does the pt have substance abuse?: Yes - Immunizations Immunizations are current?: Yes - POLST Patient has POLST: No PD ED PE NORMAL - Vitals Vital signs reviewed: Yes - General General: Alert and oriented X 3, No acute distress, Well developed/nourished PD ED PE EXPANDED - HEENT HEENT: R TM dull, Other (large cotton FB lodged deep in left AUC) Results - Vitals Vitals: Vital Signs - 24 hr 12/24/23 03:11 Temperature 35.8 C L Heart Rate 80 Respiratory 18 Rate Blood Pressure 136/72 H O2 Saturation 99 Oxygen O2 Source Room air PD Medical Decision Making - ED course Complexity details: considered differential, d/w patient ED course: Initial attempts to remove the left EAC FB using forceps were unsuccessful. The biggest impediment to removal is that the bulk of the cotton foreign body is quite deep in the auditory canal, appears to be right up against the left TM. In what was going to be a final attempt before abandoning further attempts and referring her to outpatient specialist (ENT or [facility]), I used a yellow ear curette (plastic) and, under direct visualization, I was able to use the curette up against the external auditory canal with the very small but proximal-most portion of the cotton swab pushed between the curette and the wall of the EAC. I then very slowly withdrew the curette while maintaining this contact using slight pressure against the EAC, and this resulted in the entire piece of cotton coming out from the external auditory canal. On reinspection, there is mild to moderate erythema of the EAC, but no foreign body remains. The TM appears intact. Given cortisporin otic drops with instruction on use (the EAC erythema might be due to the instrumentation, but patient says she frequently gets middle and outer ear infections and thus the erythema could be an EOM that was already forming; she says she was trying to stick the Qtip deep inside because, per patient, she was instructed by her doctor to do so if she feels water is stuck in her ear to prevent outer ear infections from starting. I instructed her to never stick any object, including cotton swabs/q-tips, into any part of the ear canal). Departure - Departure Disposition: 01 Home, Self Care Clinical Impression: Foreign body of ear, left Condition: Good Instructions: ED Foreign Body Ear Canal, ED Otitis Externa Comments: I was able to remove the entirety of the cotton swab/foreign body from your left external auditory ear canal. As we discussed, a moderate amount of redness and irritation remains; although this could be from the instrumentation (procedure), a developing outer ear canal infection is also possible and so you are being provided with antibiotic ear drops to cover possible early outer ear infection. Put 3 drops in the left ear three times per day for five days. Forms: PCP List Discharge Date/Time: 12/24/23 03:53
[2023-12-24 03:22] VITALS: BP 136/72; O2SAT 99
[2023-12-24] MEDS: NEOMYCIN/POLYMYX/HC OTIC DROPS LEFTEAR STA (03:51)
== END 2023-12-24 03:53 | disposition home or self-care (01) ==
LOC: ED 03:03
DX: T16.2XXA Foreign body in left ear, initial encounter (principal); W44.8XXA Other foreign body entering into or through a natural orifice, initial encounter; Y93.E8 Activity, other personal hygiene; Z87.891 Personal history of nicotine dependence
CPT/HCPCS: 69210; 99283; A9270; 69200